=== PATIENT | male | born 1940 | race Caucasian/White ===

== ENCOUNTER 2017-03-30 12:41 | Outpatient (RCR) | payer MEDICARE, SELFPAY ==
[2017-03-30 12:55] VITALS: BP 123/79; PULSE 105; RESP 18; TEMP 36.6; O2SAT 97; BMI 33.8
--- NOTE | 2017-03-30 14:04 | ONC.PN.ESTAB ---
- Date of Service Date of Service:: 03/30/17 - Chief Complaint f/u for thrombophilia mgmt. - History of Present Illness 77-year-old man had an episode of pulmonary embolism in September 2014 was treated with anticoagulation which was discontinued after 6 months. In June 2016 he had acute thrombophlebitis of the right saphenous vein and chronic venous changes in the right greater saphenous vein with no evidence of DVT. In July 2016 patient was found to have bilateral pulmonary embolism, started on Eliquis. 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 He remains on Eliquis, comes in for follow-up. He feels well, denies bleeding from gums or skin and any new thrombotic episodes. - Past Medical/Social History Past Medical History Past Medical History: Diabetes mellitus,Hyperlipidemia,Hypertension Past Surgical History Surgical: Tonsillectomy Family History Paternal Past Medical History: Stroke Maternal History of Cancer: Uterine cancer Social History Smoking Status Current some day smoker Review of Systems Constitutional:: Denies: Fever, Sweats, Weight loss, Appetite change, Chills Cardiovascular:: Denies: Chest pain, Palpitations, Dyspnea on exertion, Orthopnea, PND, Shortness of breath Respiratory: Denies: Cough, Hemoptysis, Shortness of Breath, Wheezing Gastrointestinal:: Denies: Abdominal pain, Nausea, Vomiting, Diarrhea, Constipation, Hematochezia Genitourinary: Denies: Dysuria, Hematuria, 15, Flank pain Musculoskeletal:: Denies: Back pain, Myalgia, Arthralgia Skin: Denies: Rash, Skin Changes, Wounds Neurological:: Denies: Headache, Dizziness, Visual changes, Tinnitus, Hearing loss Psychiatric: Denies: Anxiety, Depression, Homicidal Ideations, Suicidal Ideations Objective Vital Signs Height 1.85 m Weight: 116.346 kg Weight in Pounds 256.0 lbs Pulse Ox 97 Temperature 97.8 F Pulse Rate 105 Respiratory Rate 18 Blood Pressure 123/79 Blood Pressure Position Sitting - Physical Exam General: Alert, Oriented x3, No apparent distress HEENT: Atraumatic, PERRLA, EOMI, Normocephalic Oropharynx:: Dry mucosa Neck:: Supple, Trachea midline. Negative for: JVD, bilateral Cardiac:: Regular rate, Regular rhythm, Normal S1, Normal S2. Negative for: Murmur Lungs: Clear to auscultation, Excusion symmetrical. Negative for: Rhonchi, Wheezes Assessment and Plan Thrombophilia, MTHFR mutation on Eliquis. Discussed lifelong anticoagulation therapy. Plan is to continue lifelong anticoagulation with Eliquis for now. Patient is wants to follow-up with Dr. Samaniego and be referred when new problems arise. RTC prn. Primary Care Provider: Lorne Samaniego Referring Provider: (1) Homozygous MTHFR mutation [id number] Status: Chronic
== END 2017-04-04 16:42 | disposition home or self-care (01) ==
LOC: OMD 12:41
PROVIDERS: Family Provider Family Medicine Geriatric Medicine; PCP Family Medicine Geriatric Medicine; Visit Provider Internal Medicine Medical Oncology
DX: D68.59 Other primary thrombophilia (principal); Z86.711 Personal history of pulmonary embolism; Z79.01 Long term (current) use of anticoagulants; E72.12 Methylenetetrahydrofolate reductase deficiency

== ENCOUNTER → 2017-09-07 09:11 | Outpatient (CLI) | payer MEDICARE, SELFPAY ==
[2017-09-07 13:38] LABS: Absolute Lymphocyte Count 1.33 X10^3/ul (0.83-4.51); Absolute Neutrophil Count 2.6 X10^3/uL (2.0-7.7); Basophil# 0.02 X10^3/uL; Basophil% 0.4 % (0-1); Eosinophil# 0.15 X10^3/uL; Eosinophils% 3.4 % (0-5); Hematocrit 42.8 % (40-54); Hemoglobin 14.2 g/dl (13.0-16.5); Lymphocyte # 1.33 X10^3/ul (4.0); Lymphocyte % 29.8 % (19-41); Mean Corp Hgb Conc 33.2 g/gl (32-36); Mean Corpuscular Volume 99.5 fL (80-94); Mean Platelet Vol. 11.6 fl (6.2-12.0); Monocyte# 0.38 X10^3/uL; Monocyte% 8.5 % (0-10); Neutrophil # 2.58 X10^3/uL (2.7-7.7); Neutrophil % 57.7 % (47-70); Platelet Count 143 K/mm3 (150-450); RBC Distribution Width CV 14.7 % (11.6-14.6); RBC Distribution Width SD 53.2 fl (35.1-43.9); White Blood Count 4.5 K/mm3 (4.4-11.0)
[2017-09-07 13:42] LABS: POSITIVE COUNT NO; POSITIVE DIFFERENTIAL NO; POSITIVE MORPHOLOGY NO
[2017-09-07 14:03] LABS: AST(SGOT) 32 U/L (15-37); Alanine Aminotransfer ALT/SGPT 51 U/L (16-61); Albumin, Serum 3.5 g/dL (3.2-5.0); Alkaline Phosphatase 58 U/L (45-117); Anion Gap 8 (5-15); BUN 16 mg/dL (7-18); BUN/Creat Ratio 14.2 RATIO (10-20); Chloride 103 mmol/L (98-107); Creatinine, Serum 1.13 mg/dL (0.70-1.30); EST Glomerular Filtration Rate 67 mL/min (>60); Est Glom Filt Rate - Afr Amer 81 mL/min (>60); Globulin 3.5 g/dL (2.2-4.2); Glucose 239 mg/dL (74-106); Potassium 4.4 mmol/L (3.5-5.1); Sodium Level 137 mmol/L (136-145); Thyroid Stim Hormone (TSH) 2.54 uIU/mL (0.358-3.74); Uric Acid 4.8 mg/dL (3.5-7.2)
[2017-09-08 08:46] LABS: Vitamin D,25 Hydroxy 16.4 ng/mL (29.95-100.01)
== END ==
PROVIDERS: Family Provider Family Medicine Geriatric Medicine; PCP Family Medicine Geriatric Medicine; Visit Provider Family Medicine Geriatric Medicine
DX: E11.9 Type 2 diabetes mellitus without complications (principal); I10 Essential (primary) hypertension; E55.9 Vitamin D deficiency, unspecified; M10.9 Gout, unspecified
CPT/HCPCS: 36415; 80053; 82306; 84443; 84550; 85025

== ENCOUNTER → 2018-02-27 13:39 | Outpatient (CLI) | payer MEDICARE, SELFPAY ==
[2018-02-27 15:34] LABS: Absolute Lymphocyte Count 1.68 X10^3/ul (0.83-4.51); Absolute Neutrophil Count 4.6 X10^3/uL (2.0-7.7); Basophil# 0.01 X10^3/uL; Basophil% 0.1 % (0-1); Eosinophil# 0.11 X10^3/uL; Eosinophils% 1.6 % (0-5); Hematocrit 44.1 % (40-54); Hemoglobin 14.7 g/dl (13.0-16.5); Lymphocyte # 1.68 X10^3/ul (4.0); Mean Corp Hgb Conc 33.3 g/gl (32-36); Mean Corpuscular Volume 98.9 fL (80-94); Mean Platelet Vol. 11.7 fl (6.2-12.0); Monocyte# 0.62 X10^3/uL; Monocyte% 8.9 % (0-10); Neutrophil # 4.56 X10^3/uL (2.7-7.7); Neutrophil % 65.3 % (47-70); Platelet Count 162 K/mm3 (150-450); RBC Distribution Width CV 13.4 % (11.6-14.6); RBC Distribution Width SD 47.9 fl (35.1-43.9); Red Blood Count 4.46 M/mm3 (4.6-6.2)
[2018-02-27 15:41] LABS: POSITIVE COUNT NO; POSITIVE DIFFERENTIAL NO; POSITIVE MORPHOLOGY NO
[2018-02-27 16:07] LABS: ALB/GLOB Ratio 0.9 RATIO (0.9-2.4); AST(SGOT) 23 U/L (15-37); Alanine Aminotransfer ALT/SGPT 33 U/L (16-61); Albumin, Serum 3.5 g/dL (3.2-5.0); Alkaline Phosphatase 72 U/L (45-117); Anion Gap 12 (5-15); BUN 14 mg/dL (7-18); BUN/Creat Ratio 12.2 RATIO (10-20); Calcium,Total 9.4 mg/dL (8.5-10.1); Chloride 104 mmol/L (98-107); Creatinine, Serum 1.15 mg/dL (0.70-1.30); EST Glomerular Filtration Rate 66 mL/min (>60); Est Glom Filt Rate - Afr Amer 80 mL/min (>60); Globulin 4.1 g/dL (2.2-4.2); Glucose 198 mg/dL (74-106); Potassium 4.7 mmol/L (3.5-5.1); Protein, Total 7.6 g/dL (6.4-8.2); Sodium Level 141 mmol/L (136-145); Thyroid Stim Hormone (TSH) 2.79 uIU/mL (0.358-3.74); Uric Acid 2.9 mg/dL (3.5-7.2)
[2018-02-28 09:00] LABS: Vitamin D,25 Hydroxy 20.3 ng/mL (29.95-100.01)
== END ==
PROVIDERS: Family Provider Family Medicine Geriatric Medicine; PCP Family Medicine Geriatric Medicine; Visit Provider Family Medicine Geriatric Medicine
DX: E11.9 Type 2 diabetes mellitus without complications (principal); E55.9 Vitamin D deficiency, unspecified; I10 Essential (primary) hypertension; M10.9 Gout, unspecified
CPT/HCPCS: 36415; 80053; 82306; 84443; 84550; 85025

== ENCOUNTER → 2018-05-28 13:31 | Outpatient (CLI) | payer MEDICARE, SELFPAY ==
[2018-05-28 17:28] LABS: Absolute Lymphocyte Count 1.63 X10^3/ul (0.83-4.51); Absolute Neutrophil Count 2.9 X10^3/uL (2.0-7.7); Basophil# 0.01 X10^3/uL; Basophil% 0.2 % (0-1); Eosinophil# 0.16 X10^3/uL; Hematocrit 45.6 % (40-54); Hemoglobin 14.6 g/dl (13.0-16.5); Lymphocyte # 1.63 X10^3/ul (4.0); Mean Corpuscular Hgb 32.2 pg (27.0-32.0); Mean Corpuscular Volume 100.4 fL (80-94); Mean Platelet Vol. 11.6 fl (6.2-12.0); Monocyte% 9.5 % (0-10); Neutrophil # 2.93 X10^3/uL (2.7-7.7); Neutrophil % 55.9 % (47-70); Platelet Count 137 K/mm3 (150-450); RBC Distribution Width CV 12.8 % (11.6-14.6); RBC Distribution Width SD 46.9 fl (35.1-43.9); Red Blood Count 4.54 M/mm3 (4.6-6.2); White Blood Count 5.3 K/mm3 (4.4-11.0)
[2018-05-28 17:36] LABS: ALB/GLOB Ratio 0.9 RATIO (0.9-2.4); AST(SGOT) 14 U/L (15-37); Alanine Aminotransfer ALT/SGPT 27 U/L (16-61); Albumin, Serum 3.5 g/dL (3.2-5.0); Alkaline Phosphatase 65 U/L (45-117); Anion Gap 5 (5-15); BUN 10 mg/dL (7-18); BUN/Creat Ratio 10.5 RATIO (10-20); Calcium,Total 9.1 mg/dL (8.5-10.1); Chloride 105 mmol/L (98-107); Creatinine, Serum 0.95 mg/dL (0.70-1.30); EST Glomerular Filtration Rate 82 mL/min (>60); Est Glom Filt Rate - Afr Amer 99 mL/min (>60); Globulin 3.7 g/dL (2.2-4.2); Glucose 132 mg/dL (74-106); Potassium 4.1 mmol/L (3.5-5.1); Protein, Total 7.2 g/dL (6.4-8.2); Sodium Level 140 mmol/L (136-145); Thyroid Stim Hormone (TSH) 3.56 uIU/mL (0.358-3.74); Uric Acid 2.7 mg/dL (3.5-7.2)
[2018-05-28 17:44] LABS: Vitamin D,25 Hydroxy 20.6 ng/mL (29.95-100.01)
[2018-05-28 17:46] LABS: POSITIVE COUNT NO; POSITIVE DIFFERENTIAL NO; POSITIVE MORPHOLOGY NO
== END ==
PROVIDERS: Family Provider Family Medicine Geriatric Medicine; PCP Family Medicine Geriatric Medicine; Visit Provider Family Medicine Geriatric Medicine
DX: E11.9 Type 2 diabetes mellitus without complications (principal); I10 Essential (primary) hypertension; E55.9 Vitamin D deficiency, unspecified; M10.9 Gout, unspecified
CPT/HCPCS: 36415; 80053; 82306; 84443; 84550; 85025

== ENCOUNTER → 2018-08-14 15:50 | Outpatient (CLI) | payer MEDICARE, SELFPAY ==
--- NOTE | 2018-08-14 16:12 | CT_ITS ---
HISTORY: RLQ AND GROIN PAIN TECHNIQUE: Helically acquired images were obtained of the abdomen and pelvis following 100 cc Isovue-300 IV contrast. Oral contrast was administered. A radiation dose optimization technique was used for this scan. COMPARISON: CTA chest 07/27/16. FINDINGS: # of images incl. paperwork: [id number] No radiopaque gallstones. No evidence of cholecystitis or biliary obstruction. Liver, spleen unremarkable. Pancreas not inflamed. Mild atherosclerosis. No abdominal aortic aneurysm. Portal and mesenteric veins patent. Normal appendix. No obstruction or inflammation of the bowel. Incidental 2.1 cm cyst right kidney. Punctate nonobstructing stone lower pole left kidney. No hydronephrosis. No ureteral or urinary bladder stones. Prostate size within normal limits. 1.5 cm indeterminate density nodule right adrenal gland, unchanged. Left adrenal gland unremarkable. No acute osseous abnormality. Prominent degenerative changes lumbar spine. Lung bases with no acute or concerning findings. CT/Abdomen/Pelvis WITH Contrast IMPRESSION: No acute findings. Normal appendix. Punctate nonobstructing left renal stone. Unchanged 1.5 cm diameter indeterminate density right adrenal nodule. Individualized dose optimization techniques were used for this CT. at 1925 Reported and signed by: Aron Gomes MD Electronically Signed: Aron Gomes, at 19:24 EST Tel , Service support ,
[2018-08-14 16:25] LABS: Absolute Lymphocyte Count 1.85 X10^3/ul (0.83-4.51); Absolute Neutrophil Count 3.6 X10^3/uL (2.0-7.7); Basophil# 0.02 X10^3/uL; Basophil% 0.3 % (0-1); Eosinophil# 0.14 X10^3/uL; Eosinophils% 2.3 % (0-5); Hematocrit 48.1 % (40-54); Hemoglobin 15.6 g/dl (13.0-16.5); Lymphocyte # 1.85 X10^3/ul (4.0); Lymphocyte % 30.1 % (19-41); Mean Corp Hgb Conc 32.4 g/gl (32-36); Mean Corpuscular Hgb 32.8 pg (27.0-32.0); Mean Corpuscular Volume 101.3 fL (80-94); Mean Platelet Vol. 11.2 fl (6.2-12.0); Monocyte# 0.47 X10^3/uL; Monocyte% 7.7 % (0-10); Neutrophil # 3.64 X10^3/uL (2.7-7.7); Neutrophil % 59.3 % (47-70); Platelet Count 166 K/mm3 (150-450); RBC Distribution Width CV 14.6 % (11.6-14.6); RBC Distribution Width SD 53.9 fl (35.1-43.9); Red Blood Count 4.75 M/mm3 (4.6-6.2); White Blood Count 6.1 K/mm3 (4.4-11.0)
[2018-08-14 16:27] LABS: AST(SGOT) 20 U/L (15-37); Alanine Aminotransfer ALT/SGPT 31 U/L (16-61); Albumin, Serum 3.9 g/dL (3.2-5.0); Alkaline Phosphatase 67 U/L (45-117); Anion Gap 6 (5-15); BUN 14 mg/dL (7-18); BUN/Creat Ratio 13.3 RATIO (10-20); Calcium,Total 9.1 mg/dL (8.5-10.1); Chloride 109 mmol/L (98-107); Creatinine, Serum 1.05 mg/dL (0.70-1.30); EST Glomerular Filtration Rate 73 mL/min (>60); Est Glom Filt Rate - Afr Amer 88 mL/min (>60); Globulin 3.9 g/dL (2.2-4.2); Glucose 111 mg/dL (74-106); Protein, Total 7.8 g/dL (6.4-8.2); Sodium Level 141 mmol/L (136-145)
[2018-08-14 16:28] LABS: POSITIVE COUNT NO; POSITIVE DIFFERENTIAL NO; POSITIVE MORPHOLOGY NO
== END ==
PROVIDERS: Family Provider Family Medicine Geriatric Medicine; PCP Family Medicine Geriatric Medicine; Referring Provider Family Medicine Geriatric Medicine; Visit Provider Family Medicine Geriatric Medicine
DX: R10.9 Unspecified abdominal pain (principal)
CPT/HCPCS: 36415; 74177; 80053; 85025; Q9967

== ENCOUNTER → 2018-09-10 14:29 | Outpatient (CLI) | payer MEDICARE, SELFPAY ==
[2018-09-10 16:24] LABS: Absolute Lymphocyte Count 2.16 X10^3/ul (0.83-4.51); Absolute Neutrophil Count 4.5 X10^3/uL (2.0-7.7); Basophil# 0.03 X10^3/uL; Basophil% 0.4 % (0-1); Eosinophil# 0.12 X10^3/uL; Eosinophils% 1.6 % (0-5); Hematocrit 50.5 % (40-54); Hemoglobin 16.3 g/dl (13.0-16.5); Lymphocyte # 2.16 X10^3/ul (4.0); Lymphocyte % 29.5 % (19-41); Mean Corp Hgb Conc 32.3 g/gl (32-36); Mean Corpuscular Hgb 32.7 pg (27.0-32.0); Mean Corpuscular Volume 101.4 fL (80-94); Mean Platelet Vol. 11.7 fl (6.2-12.0); Monocyte# 0.52 X10^3/uL; Monocyte% 7.1 % (0-10); Neutrophil # 4.46 X10^3/uL (2.7-7.7); Platelet Count 148 K/mm3 (150-450); RBC Distribution Width CV 13.8 % (11.6-14.6); RBC Distribution Width SD 50.8 fl (35.1-43.9); Red Blood Count 4.98 M/mm3 (4.6-6.2); White Blood Count 7.3 K/mm3 (4.4-11.0)
[2018-09-10 16:25] LABS: POSITIVE COUNT NO; POSITIVE DIFFERENTIAL NO; POSITIVE MORPHOLOGY NO
[2018-09-10 16:41] LABS: Vitamin D,25 Hydroxy 16.2 ng/mL (29.95-100.01)
[2018-09-10 16:59] LABS: AST(SGOT) 19 U/L (15-37); Alanine Aminotransfer ALT/SGPT 33 U/L (16-61); Albumin, Serum 3.9 g/dL (3.2-5.0); Alkaline Phosphatase 65 U/L (45-117); Anion Gap 13 (5-15); BUN 15 mg/dL (7-18); BUN/Creat Ratio 15.5 RATIO (10-20); Calcium,Total 9.5 mg/dL (8.5-10.1); Chloride 107 mmol/L (98-107); Creatinine, Serum 0.97 mg/dL (0.70-1.30); EST Glomerular Filtration Rate 80 mL/min (>60); Est Glom Filt Rate - Afr Amer 97 mL/min (>60); Globulin 3.9 g/dL (2.2-4.2); Glucose 88 mg/dL (74-106); Potassium 4.5 mmol/L (3.5-5.1); Protein, Total 7.8 g/dL (6.4-8.2); Sodium Level 140 mmol/L (136-145); Thyroid Stim Hormone (TSH) 1.87 uIU/mL (0.358-3.74); Uric Acid 2.4 mg/dL (3.5-7.2)
== END ==
PROVIDERS: Family Provider Family Medicine Geriatric Medicine; PCP Family Medicine Geriatric Medicine; Visit Provider Family Medicine Geriatric Medicine
DX: E11.9 Type 2 diabetes mellitus without complications (principal); I10 Essential (primary) hypertension; E55.9 Vitamin D deficiency, unspecified; M10.9 Gout, unspecified
CPT/HCPCS: 36415; 80053; 82306; 84443; 84550; 85025

== ENCOUNTER → 2019-03-14 13:34 | Outpatient (CLI) | payer OTHER, SELFPAY ==
[2019-03-14 18:23] LABS: Absolute Lymphocyte Count 1.55 X10^3/uL (0.83-4.51); Basophil# 0.04 X10^3/uL; Basophil% 0.8 % (0-1); Eosinophil# 0.07 X10^3/uL; Eosinophils% 1.4 % (0-5); Hematocrit 46.7 % (40-54); Hemoglobin 14.8 g/dL (13.0-16.5); Lymphocyte # 1.55 X10^3/ul (4.0); Lymphocyte % 30.3 % (19-41); Mean Corp Hgb Conc 31.7 g/dL (32-36); Mean Corpuscular Hgb 32.3 pg (27.0-32.0); Mean Platelet Vol. 11.4 fl (6.2-12.0); Monocyte# 0.41 X10^3/uL; NRBC Flagged by Analyzer 0 % (0-5); Neutrophil # 3.03 X10^3/uL (2.7-7.7); Neutrophil % 59.1 % (47-70); Platelet Count 127 K/mm3 (150-450); RBC Distribution Width CV 13.8 % (11.6-14.6); Red Blood Count 4.58 M/mm3 (4.6-6.2); White Blood Count 5.1 K/mm3 (4.4-11.0)
[2019-03-14 18:38] LABS: Vitamin D,25 Hydroxy 20.6 ng/mL (29.95-100.01)
[2019-03-14 18:42] LABS: AST(SGOT) 15 U/L (15-37); Alanine Aminotransfer ALT/SGPT 23 U/L (16-61); Albumin, Serum 3.5 g/dL (3.2-5.0); Alkaline Phosphatase 63 U/L (45-117); Anion Gap 7 (5-15); BUN 16 mg/dL (7-18); BUN/Creat Ratio 15.8 RATIO (10-20); Calcium,Total 9.2 mg/dL (8.5-10.1); Chloride 107 mmol/L (98-107); Creatinine, Serum 1.01 mg/dL (0.70-1.30); EST Glomerular Filtration Rate 76 mL/min (>60); Est Glom Filt Rate - Afr Amer 92 mL/min (>60); Globulin 3.6 g/dL (2.2-4.2); Glucose 126 mg/dL (74-106); Potassium 4.3 mmol/L (3.5-5.1); Protein, Total 7.1 g/dL (6.4-8.2); Sodium Level 142 mmol/L (136-145); Thyroid Stim Hormone (TSH) 1.62 uIU/mL (0.358-3.74)
== END ==
PROVIDERS: Family Provider Family Medicine Geriatric Medicine; PCP Family Medicine Geriatric Medicine; Visit Provider Family Medicine Geriatric Medicine
DX: I10 Essential (primary) hypertension (principal); E11.9 Type 2 diabetes mellitus without complications; E55.9 Vitamin D deficiency, unspecified; M10.9 Gout, unspecified
CPT/HCPCS: 36415; 80053; 82306; 84443; 84550; 85025

== ENCOUNTER → 2019-09-12 13:52 | Outpatient (CLI) | payer OTHER, SELFPAY ==
[2019-09-12 16:08] LABS: Absolute Lymphocyte Count 1.59 X10^3/uL (0.83-4.51); Absolute Neutrophil Count 3.6 X10^3/uL (2.0-7.7); Basophil# 0.03 X10^3/uL; Basophil% 0.5 % (0-1); Eosinophils% 1.7 % (0-5); Hematocrit 49.1 % (40-54); Hemoglobin 15.9 g/dL (13.0-16.5); Lymphocyte # 1.59 X10^3/ul (4.0); Lymphocyte % 27.3 % (19-41); Mean Corp Hgb Conc 32.4 g/dL (32-36); Mean Corpuscular Hgb 31.9 pg (27.0-32.0); Mean Corpuscular Volume 98.6 fL (80-94); Mean Platelet Vol. 11.8 fl (6.2-12.0); Monocyte# 0.53 X10^3/uL; Monocyte% 9.1 % (0-10); NRBC Flagged by Analyzer 0 % (0-5); Neutrophil # 3.56 X10^3/uL (2.7-7.7); Neutrophil % 61.1 % (47-70); Platelet Count 141 K/mm3 (150-450); RBC Distribution Width CV 13.4 % (11.6-14.6); Red Blood Count 4.98 M/mm3 (4.6-6.2); White Blood Count 5.8 K/mm3 (4.4-11.0)
[2019-09-12 16:30] LABS: ALB/GLOB Ratio 0.9 RATIO (0.9-2.4); AST(SGOT) 16 U/L (15-37); Alanine Aminotransfer ALT/SGPT 32 U/L (16-61); Albumin, Serum 3.7 g/dL (3.2-5.0); Alkaline Phosphatase 63 U/L (45-117); Anion Gap 7 (5-15); BUN 19 mg/dL (7-18); BUN/Creat Ratio 17.9 RATIO (10-20); Calcium,Total 9.6 mg/dL (8.5-10.1); Chloride 107 mmol/L (98-107); Creatinine, Serum 1.06 mg/dL (0.70-1.30); EST Glomerular Filtration Rate 72 mL/min (>60); Est Glom Filt Rate - Afr Amer 87 mL/min (>60); Globulin 3.9 g/dL (2.2-4.2); Glucose 132 mg/dL (74-106); Potassium 4.6 mmol/L (3.5-5.1); Protein, Total 7.6 g/dL (6.4-8.2); Sodium Level 139 mmol/L (136-145); Thyroid Stim Hormone (TSH) 2.26 uIU/mL (0.358-3.74); Uric Acid 3.3 mg/dL (3.5-7.2)
[2019-09-12 16:36] LABS: Vitamin D,25 Hydroxy 27.2 ng/mL
== END ==
PROVIDERS: PCP Family Medicine Geriatric Medicine; Visit Provider Family Medicine Geriatric Medicine
DX: E11.9 Type 2 diabetes mellitus without complications (principal); E55.9 Vitamin D deficiency, unspecified; I10 Essential (primary) hypertension; M10.9 Gout, unspecified
CPT/HCPCS: 36415; 80053; 82306; 84443; 84550; 85025

== ENCOUNTER → 2020-03-12 13:46 | Outpatient (CLI) | payer OTHER, SELFPAY ==
[2020-03-12 16:38] LABS: Absolute Lymphocyte Count 1.39 X10^3/uL (0.83-4.51); Basophil# 0.02 X10^3/uL; Basophil% 0.4 % (0-1); Hematocrit 45.6 % (40-54); Hemoglobin 14.6 g/dL (13.0-16.5); Lymphocyte # 1.39 X10^3/ul (4.0); Lymphocyte % 28.1 % (19-41); Mean Corpuscular Hgb 32.7 pg (27.0-32.0); Mean Platelet Vol. 11.4 fl (6.2-12.0); Monocyte# 0.46 X10^3/uL; Monocyte% 9.3 % (0-10); NRBC Flagged by Analyzer 0 % (0-5); Neutrophil # 2.96 X10^3/uL (2.7-7.7); Neutrophil % 59.8 % (47-70); Platelet Count 146 K/mm3 (150-450); RBC Distribution Width CV 13.7 % (11.6-14.6); RBC Distribution Width SD 52.1 fl (35.1-43.9); Red Blood Count 4.47 M/mm3 (4.6-6.2)
[2020-03-12 17:00] LABS: Vitamin D,25 Hydroxy 31.9 ng/mL
[2020-03-12 17:11] LABS: AST(SGOT) 17 U/L (15-37); Alanine Aminotransfer ALT/SGPT 28 U/L (16-61); Albumin, Serum 3.7 g/dL (3.2-5.0); Alkaline Phosphatase 58 U/L (45-117); Anion Gap 5 (5-15); BUN 16 mg/dL (7-18); BUN/Creat Ratio 13.6 RATIO (10-20); Calcium,Total 8.9 mg/dL (8.5-10.1); Chloride 108 mmol/L (98-107); Creatinine, Serum 1.18 mg/dL (0.70-1.30); EST Glomerular Filtration Rate 64 mL/min (>60); Est Glom Filt Rate - Afr Amer 77 mL/min (>60); Globulin 3.6 g/dL (2.2-4.2); Glucose 196 mg/dL (74-106); Potassium 4.3 mmol/L (3.5-5.1); Protein, Total 7.3 g/dL (6.4-8.2); Sodium Level 139 mmol/L (136-145); Thyroid Stim Hormone (TSH) 1.83 uIU/mL (0.358-3.74); Uric Acid 2.7 mg/dL (3.5-7.2)
== END ==
PROVIDERS: PCP Family Medicine Geriatric Medicine; Visit Provider Family Medicine Geriatric Medicine
DX: I10 Essential (primary) hypertension (principal); E55.9 Vitamin D deficiency, unspecified; M10.9 Gout, unspecified; E11.9 Type 2 diabetes mellitus without complications
CPT/HCPCS: 36415; 80053; 82306; 84443; 84550; 85025

== ENCOUNTER 2020-03-30 14:30 | Outpatient (RCR) | payer MEDICARE, SELFPAY ==
--- NOTE | 2020-03-25 09:18 | HP.OTEVAL ---
Patient's Visit Information KELLEY CAMILO is a 79 year old M, referred to Occupational Therapy by Dr. Lorne Samaniego MD, with a diagnosis of lymphedema. Date of Evaluation: 03/23/20 Occupational Therapist: Shama Rand, FREIDA/Claudia, CHT - Subjective This 79 year old male was seen for OT eval with dx of BLE lymphedema. pt states he has compression socks but has not worn them because the heat and they make his legs itchy. pt states he has had swelling in bilateral LE worse in right than the left. pt is unsure what compression class his socks are. states he did have issue where his right leg was seeping, but this quit. Pt would like to know what he needs to do to make it go away. - Lymphedema (Circumferential Measure) Mid-foot: right 27cm left 26cm Ankle: right 37cm left 32cm Lower calf: right 39cm left 28cm Largest calf: right 42.5cm left 41cm Below knee: right 39cm left 37cm Lower Exremity Comments: pt demo with edema in toes- - Lower Limb Functional Index Lower Extremity Functional Score: 68 - Goals Demonstrate a 20% reduction in edema by d/c: Yes Demonstrate adequate knowledge of self-massage by 2nd week: Yes Demonstrate adequate knowledge skin care/prec by 2nd week: Yes Select approp compression garment w/donning/care/wear by d/c: Yes Voice need to replace compression garment every 4-6mo by dc: Yes - Rehabilitation General Assessment: pt demo with BLE stage II lymphedema and would benefit from skilled OT services 2-3 visits to increase pts knowledge and mtg of lymphedema. Today therapist ed. pt on need of compression socks/garment- right LE 30-40mmHg, left LE 20-30mmHg, lymph system, lymph ex and skin care and precautions. pt demo understanding and agree to POC Rehabilitation Potential: Questionable - Anticipated Interventions Education re Diagnosis, Manual Lymph Drainage, Education re Life-long lymphedema Management, Education re Skin Care and Precautions, Education re Self Massage Techniques, Education re Correct Donning Tech,Care&Wearing Sched Comp Garments, Home Program - Visit Plan Frequency: 1-2x /Week Duration: 2 Weeks TEXT: Thank you for the opportunity to evaluate your patient. For Medicare and Medicare HMO plans, please review the plan of care and approve it. It will need to be FAXED BACK to us at [phone] for Medicare purposes. Please let me know if there are questions or concerns regarding this plan of care. Physician Signature: Date:
--- NOTE | 2020-03-30 14:56 | HP.OTDCSUM ---
It has been my pleasure to treat KELLEY CAMILO under orders from Dr. Lorne Samaniego MD, for the diagnosis of lymphedema for a total of 2 visit(s). Please see the following information for a summary of their discharge status. % Improvement: 80 Objective/Function: pt demo with a 4cm reduction in LE edema Patient Goals: Learn how to Manage Lymphedema, Learn how to Apply Compression Stockings Demonstrate a 20% reduction in edema by d/c: Yes Demonstrate adequate knowledge of self-massage by 2nd week: Yes Demonstrate adequate knowledge skin care/prec by 2nd week: Yes Select approp compression garment w/donning/care/wear by d/c: Yes Voice need to replace compression garment every 4-6mo by dc: Yes Discharge Comments: Pt was seen for 2 visits and arrived to session with a reduction of 4cm! pt arrived with compression socks on and feels he can tolerate them fine. pt demo understanding of compression socks, skin care and beneficial exercises. pt has met goals in OT and is d/c with HEP at this time. If there are questions or concerns regarding this patient's occupational therapy, please fell free to call me at [phone]. Thank you for the referral of this patient. Sincerely, Shama Rand, OTR/L, CHT
== END 2020-03-30 19:00 | disposition home or self-care (01) ==
LOC: OT 14:30
PROVIDERS: PCP Family Medicine Geriatric Medicine; Referring Provider Family Medicine Geriatric Medicine; Visit Provider Family Medicine Geriatric Medicine
DX: I89.0 Lymphedema, not elsewhere classified (principal)
CPT/HCPCS: 97166; 97530

== ENCOUNTER → 2020-09-14 13:02 | Outpatient (CLI) | payer MEDICARE, SELFPAY ==
[2020-09-14 15:23] LABS: Absolute Lymphocyte Count 1.57 X10^3/uL (0.83-4.51); Absolute Neutrophil Count 2.7 X10^3/uL (2.0-7.7); Basophil# 0.03 X10^3/uL; Basophil% 0.6 % (0-1); Eosinophil# 0.13 X10^3/uL; Eosinophils% 2.6 % (0-5); Hematocrit 43.6 % (40-54); Hemoglobin 14.3 g/dL (13.0-16.5); Lymphocyte # 1.57 X10^3/ul (4.0); Lymphocyte % 31.8 % (19-41); Mean Corp Hgb Conc 32.8 g/dL (32-36); Mean Corpuscular Hgb 32.2 pg (27.0-32.0); Mean Corpuscular Volume 98.2 fL (80-94); Mean Platelet Vol. 11.9 fl (6.2-12.0); Monocyte# 0.45 X10^3/uL; Monocyte% 9.1 % (0-10); NRBC Flagged by Analyzer 0 % (0-5); Neutrophil # 2.74 X10^3/uL (2.7-7.7); Neutrophil % 55.5 % (47-70); Platelet Count 151 K/mm3 (150-450); RBC Distribution Width SD 46.5 fl (35.1-43.9); Red Blood Count 4.44 M/mm3 (4.6-6.2); White Blood Count 4.9 K/mm3 (4.4-11.0)
[2020-09-14 15:37] LABS: Vitamin D,25 Hydroxy 27.5 ng/mL
[2020-09-14 15:44] LABS: AST(SGOT) 17 U/L (15-37); Alanine Aminotransfer ALT/SGPT 32 U/L (16-61); Albumin, Serum 3.5 g/dL (3.2-5.0); Alkaline Phosphatase 74 U/L (45-117); Anion Gap 7 (5-15); BUN 12 mg/dL (7-18); BUN/Creat Ratio 9.6 RATIO (10-20); Chloride 101 mmol/L (98-107); Creatinine, Serum 1.25 mg/dL (0.70-1.30); EST Glomerular Filtration Rate 59 mL/min (>60); Est Glom Filt Rate - Afr Amer 72 mL/min (>60); Globulin 3.5 g/dL (2.2-4.2); Glucose 415 mg/dL (74-106); Potassium 4.4 mmol/L (3.5-5.1); Sodium Level 135 mmol/L (136-145); Thyroid Stim Hormone (TSH) 2.04 uIU/mL (0.358-3.74); Uric Acid 2.4 mg/dL (3.5-7.2)
== END ==
PROVIDERS: PCP Family Medicine Geriatric Medicine; Visit Provider Family Medicine Geriatric Medicine
DX: I10 Essential (primary) hypertension (principal); E11.9 Type 2 diabetes mellitus without complications; E55.9 Vitamin D deficiency, unspecified; M10.9 Gout, unspecified
CPT/HCPCS: 36415; 80053; 82306; 84443; 84550; 85025

== ENCOUNTER → 2020-12-21 14:31 | Outpatient (CLI) | payer MEDICARE, SELFPAY ==
[2020-12-21 16:59] LABS: Absolute Lymphocyte Count 1.95 X10^3/uL (0.83-4.51); Absolute Neutrophil Count 3.2 X10^3/uL (2.0-7.7); Basophil# 0.03 X10^3/uL; Basophil% 0.5 % (0-1); Eosinophil# 0.08 X10^3/uL; Eosinophils% 1.4 % (0-5); Hematocrit 44.7 % (40-54); Lymphocyte # 1.95 X10^3/ul (0.83-4.51); Lymphocyte % 33.5 % (19-41); Mean Corp Hgb Conc 33.6 g/dL (32-36); Mean Corpuscular Hgb 31.8 pg (27.0-32.0); Mean Corpuscular Volume 94.9 fL (80-94); Mean Platelet Vol. 11.6 fl (6.2-12.0); Monocyte# 0.56 X10^3/uL; Monocyte% 9.6 % (0-10); NRBC Flagged by Analyzer 0 % (0-5); Neutrophil # 3.17 X10^3/uL (2.7-7.7); Neutrophil % 54.5 % (47-70); Platelet Count 188 K/mm3 (150-450); RBC Distribution Width CV 12.6 % (11.6-14.6); RBC Distribution Width SD 44.5 fl (35.1-43.9); Red Blood Count 4.71 M/mm3 (4.6-6.2); White Blood Count 5.8 K/mm3 (4.4-11.0)
[2020-12-21 17:17] LABS: Vitamin D,25 Hydroxy 39.2 ng/mL
[2020-12-21 17:23] LABS: ALB/GLOB Ratio 0.9 RATIO (0.9-2.4); AST(SGOT) 17 U/L (15-37); Alanine Aminotransfer ALT/SGPT 28 U/L (16-61); Albumin, Serum 3.6 g/dL (3.2-5.0); Alkaline Phosphatase 73 U/L (45-117); Anion Gap 9 (5-15); BUN 21 mg/dL (7-18); BUN/Creat Ratio 17.8 RATIO (10-20); Calcium,Total 9.2 mg/dL (8.5-10.1); Chloride 98 mmol/L (98-107); Creatinine, Serum 1.18 mg/dL (0.70-1.30); EST Glomerular Filtration Rate 63 mL/min (>60); Est Glom Filt Rate - Afr Amer 77 mL/min (>60); Glucose 255 mg/dL (74-106); Protein, Total 7.6 g/dL (6.4-8.2); Sodium Level 135 mmol/L (136-145); Thyroid Stim Hormone (TSH) 2.69 uIU/mL (0.358-3.74); Uric Acid 3.8 mg/dL (3.5-7.2)
[2020-12-21 18:09] LABS: M R Staph aureus DNA By PCR Negative (Negative); Probe Check PASS; Specimen Processing Control PASS; Staph aureus DNA By PCR POSITIVE (Negative)
== END | disposition home or self-care (01) ==
PROVIDERS: PCP Family Medicine Geriatric Medicine; Visit Provider Family Medicine Geriatric Medicine
DX: I10 Essential (primary) hypertension (principal); E11.9 Type 2 diabetes mellitus without complications; E55.9 Vitamin D deficiency, unspecified; M10.9 Gout, unspecified
CPT/HCPCS: 36415; 80053; 82306; 84443; 84550; 85025; 87070; 87077; 87186; 87205; 87640

== ENCOUNTER → 2020-12-21 15:32 | Outpatient (CLI) | payer MEDICARE, SELFPAY ==
--- NOTE | 2020-12-21 15:34 | VDLE_ITS ---
Reason For Study: localized edema RIGHT LEFT GSV is normal. CFV is compressible, spontaneous, phasic, CFV is compressible, spontaneous, phasic, competent, and demonstrates normal competent and demonstrates normal augmentation. augmentation. FV is compressible, spontaneous, phasic, competent and demonstrates normal augmentation. POP V is compressible, spontaneous, phasic, competent and demonstrates normal augmentation. T/P Trunk is compressible. PTV is compressible. RT PerV is compressible. Procedure This is a venous duplex using B-mode, color flow and spectral Doppler. Exam performed in department. The exam was diagnostic. A preliminary report was called and/or faxed to Dr. Samaniego @ 4:10 pm. VL/Venous Duplex US, Unilateral Interpretation Summary Deep veins of the right lower extremity are patent and compressible segmentally . There is no evidence of right lower extremity deep vein thrombosis. Valvular competence kamala ears intact within the proximal deep venous system on the right . The right great saphenous vein a ppears patent and compressible segmentally. Ordering Physician: Lorne Samaniego Referring Physician: Lorne Samaniego Chi Performed By: Jenny Jones RVT, RDCS and Student
== END ==
PROVIDERS: PCP Family Medicine Geriatric Medicine; Referring Provider Family Medicine Geriatric Medicine; Visit Provider Family Medicine Geriatric Medicine
DX: R60.0 Localized edema (principal); B95.62 Methicillin resistant Staphylococcus aureus infection as the cause of diseases classified elsewhere; E11.9 Type 2 diabetes mellitus without complications; E55.9 Vitamin D deficiency, unspecified; I10 Essential (primary) hypertension; M10.9 Gout, unspecified
CPT/HCPCS: 36415; 80053; 82306; 84443; 84550; 85025; 87070; 87205; 87640; 93971

== ENCOUNTER 2021-01-01 07:32 | Outpatient (RCR) | payer MEDICARE, SELFPAY ==
[2021-01-01 07:52] VITALS: BP 148/81; PULSE 86; RESP 16; TEMP 36.9; BMI 32.4
--- NOTE | 2021-01-01 12:51 | PCM.WC.HP ---
History of Present Illness Date of Service: 01/01/21 Chief Complaint: right leg ulcers History of Wound: Sukumar is a pleasant 80-year-old white male who presents to the wound healing center today, 01/01/2021, for evaluation of right lower extremity ulcer. He has a past medical history significant for type 2 diabetes mellitus, right lower extremity lymphedema, hypertension, hyperlipidemia, diabetic neuropathy, and pulmonary embolism (approximately 5 years ago, r/t traveling). He is . He reports his ulcer occurred after being outside mowing his lawn. He believes he may have bumped his leg on his mower. After going inside his house and showering, he noticed a large blister had developed on his right leg. He applied pressure to the blister and it ruptured a large amount of clear fluid. His ulcer was initially evaluated by Dr. Samaniego on 12/21/2020. A culture on 12/21/2020 revealed 2+ Serratia marcescens, 2+ Aeromonas hydrophilia/cavia, 1+ staph aureus, and rare Klebsiella oxytoca. He was started on a 7-day course of doxycycline and a 7-day course of Keflex, and has completed these antibiotics. Labs from 12/21/2020 revealed an unremarkable CBCD, a CMP with a glucose 255, BUN 21, and estimated GFR 63, and A1c of 11.1%, and normal uric acid and TSH levels. He had a positive Staph aureus PCR and a negative MRSA PCR. Right lower extremity venous studies revealed valvular competence and no evidence of DVT. He has been performing daily wound care. He washes his right lower extremity ulcers daily with antibacterial soap and water and applies Neosporin and a nonadherent dressing to the ulcers. He states his right lower extremity swelling is no worse than his baseline. He uses compression to his bilateral lower extremities daily. He typically sleeps in a recliner or in bed. He does note improvement in his lower extremity swelling with laying flat in bed. He denies fever, chills, general malaise, or poor appetite. He denies any purulent or malodorous drainage from his ulcers. He denies any increased warmth or redness surrounding his ulcers. 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 Essential hypertension History of pulmonary embolism Hyperlipidemia Lymphedema of right lower extremity Home Medications apixaban [Eliquis] 5 mg PO BID 09/30/16 [History Last Taken Unknown] atorvastatin [Lipitor] 40 mg PO DAILY 09/30/16 [History Last Taken Unknown] febuxostat [Uloric] 40 mg PO DAILY 09/30/16 [History Last Taken Unknown] lisinopril 20 mg PO DAILY 09/30/16 [History Last Taken Unknown] metformin 1,000 mg PO BIDCM 09/30/16 [History Last Taken Unknown] Allergy/AdvReac Type Severity Reaction Status Date / Time house dust AdvReac Severe Unknown Unverified 09/30/16 10:55 cat dander AdvReac Other Verified 03/30/17 12:52 dog dander AdvReac Other Verified 03/30/17 12:53 Social History Smoking Status: Former smoker ROS Constitutional Constitutional: Denies chills, fever(s) or night sweats Eyes Eyes: Denies change in vision or double vision ENT HEENT: Denies lip swelling or tongue swelling Cardiovascular Cardiovascular: Denies chest pain or palpitations Respiratory/Chest Respiratory/Chest: Denies cough, shortness of breath at rest, shortness of breath with exertion or wheezing Gastrointestinal Gastrointestinal: Denies diarrhea, nausea or vomiting Genitourinary Genitourinary: Denies dysuria or hematuria Musculoskeletal Musculoskeletal: Denies abnormal gait, extremity pain or muscle weakness Integumentary Integumentary: Reports wounds; Denies rash Neurologic Neurologic: Reports numbness, sensory deficit and tingling; Denies abnormal gait, abnormal speech or focal weakness Endocrine Endocrinology: Denies cold intolerance, heat intolerance, polydipsia or polyuria Hematologic/Lymphatic Hematologic/Lymphatic: Reports other Details: hx PE ; Denies easy bleeding or easy bruising Vital Signs Vital Signs Vital Signs: 01/01/21 07:52 Temperature 98.4 F Temperature Source Temporal Pulse Rate 86 Respiratory Rate 16 Blood Pressure 148/81 H Blood Pressure Mean 103 Blood Pressure Source Monitor Blood Pressure Position Sitting Blood Pressure Location Right Arm Weight Weight: 246 lb Body Mass Index (BMI) 32.4 Physical Exam Const alert, no apparent distress and healthy appearing General Appearance: cooperative, comfortable and well kempt HEENT Head and Scalp: normocephalic and atraumatic Eyes EOMs intact bilaterally Neck supple and no JVD Lymph Lymphatic: lymphedema moderate (RLE) Resp normal respiratory effort, normal air movement and no use of accessory muscles Auscultation: clear to auscultation bilaterally; Negative for crackles, rales, rhonchi or wheezes Cardio regular rate and regular rhythm GI normal to inspection, nondistended, normoactive bowel sounds Extremity normal capillary refill, no joint enlargement and no calf tenderness General Extremity: edema right lower extremity moderate; Negative for clubbing or cyanosis Peripheral Pulses: Yes dorsalis pedis pulses present bilateral 2+ Skin Wounds: wounds noted No malodorous Wound Narrative: Ulcer cluster of right lower extremity with subcutaneous layers exposed. There is good granulation tissue present. There is no periulcer erythema, warmth, or tenderness. There is no purulent/malodorous drainage. No tunneling, undermining, or probing to bone. Neuro oriented x3, moves all extremities and no focal motor deficits Psych mental status grossly normal, cooperative and affect normal Debridement Note Debridement Note Post-Debridement Measurements and Additional Note: Post-Debridement Measurements/Treatment - Nurse 1 - General Ulcer Assessment Start: 01/01/21 07:36 Freq: Status: Active Protocol: .LOWEXT Activity Type Activity Date Activity User E-Sign Co-Sign Detail Recorded Client Recorded Date Recorded By Document 01/01/21 07:52 Desktop 01/01/21 08:12 01/01/21 07:52 - Today's Visit Information Type of service Initial Visit Arrival Mode Ambulatory Patient Identification Verified (Name & Yes ) Patient Requires Transmission-Based No Precautions Height and Weight Height 6 ft 1 in Weight 246 lb Weight in Pounds 246.0 lbs Body Mass Index (BMI) 32.4 BMI Classification Obese BSA - Jarocho 2.35 Vital Signs Temperature (97.8 F-99.1 F) 98.4 F Temperature Source Temporal Pulse Rate (60-100) 86 Pulse Location Monitor Respiratory Rate (12-18) 16 Respiratory rate source Observation Blood Pressure (90/60-120/80) 148/81 H Blood Pressure Mean 103 Source Monitor Position Sitting Blood Pressure Location Right Arm History Since Last Visit- (Skip if this is Patient's initial visit) Left Footwear Regular Shoe Right Footwear Regular Shoe Pain Scale: 0-10 Numeric Is Patient Pain Free? Yes Lower Extremity Assessment/ Foot Assessment/ Toe Nail Assessment Right -Posterior Tibial Palpable Yes -Dorsalis Pedis Palpable Yes -Extremity Color Hyperpigmented, Hemosiderin -Hair Growth on Legs Yes -Hair Growth on Toes No -Temperature of Extremity Warm -Capillary Refill Less than 3 Seconds -Dependent Rubor Yes -Blanched when Elevated No -Other Deformity No -Prior Foot Ulcer No -Charcot Joint No -Prior Amputation No -Thick Yes -Discolored No -Deformed No -Improper Length & Hygeine No Left -Posterior Tibial Palpable Yes -Dorsalis Pedis Palpable Yes -Extremity Color Hyperpigmented -Hair Growth on Legs Yes -Hair Growth on Toes No -Temperature of Extremity Warm -Capillary Refill Less than 3 Seconds -Dependent Rubor Yes -Blanched when Elevated No -Lipodermatosclerosis No -Foot Assessment Not Applicable -Other Deformity No -Prior Foot Ulcer No -Charcot Joint No -Prior Amputation No -Thick Yes -Discolored Yes -Deformed No -Improper Length & Hygeine No Neuropathy Assessment Feet - Top Side and Bottom <Entered> (a) Communication Assessment Primary Language E[place]an Preferred language [place] Deputy County Clerk Required No Able to Read Yes Able to Write Yes Communication Tools None Right Hearing Abillity Normal Left Hearing Abillity Normal Visual Assistive Devices Glasses Teaching Assessment Preferences Verbal,Written Barriers to Learning None Readiness To Learn Excellent Willingness to Engage in Self Management High Activies Readiness to Engage in Self Management High Activities Anxiety Level Calm Cooperation Cooperative Perception Coherent Interest in Health Problem Asks Questions Education Importance Acknowledges Need Does Patient Smoke tobacco or other No substances Smoking Status Former smoker Is Patient Diabetic Yes Functional Assessment Recent Decline in Ability to Perform Denies Any Declines Culture/Buddhist/[employer] Cultural/Buddhist Needs that may affect No Treatment Plan Would you allow our hospital meter shop superintendent to No meet you for the purpose of spiritual/ emotional support? [employer] to contact place of latter-day No Teaching: Wound Center [facility] Orientation/ Contacting Physician -Person Taught Patient -Teaching Method Discussion, Demonstration -Response to teaching Return demonstration, Verbalize understanding (a) 1 - positive 2 - positive 3 - negative 4 - positive 5 - positive - Nurse 1 - General Ulcer Measurement Start: 01/01/21 07:36 Freq: Status: Active Protocol: Activity Type Activity Date Activity User E-Sign Co-Sign Detail Recorded Client Recorded Date Recorded By Document 01/01/21 07:52 Desktop 01/01/21 08:12 01/01/21 07:52 Wound Center Nurse 1 1-right arriaga cluster -Combined with other wound No -Current Size (cm) - Length 3.5 -Current Size (cm) - Width 7.5 -Current Size (cm) - Depth 0.1 -Total Square Cm 26.25 -Photo Taken Yes -Epithelialization Large 67-100% -Tunneling No -Undermining/Tunneling No -Circular Undermining No -Classification - Gama Grading ( Grade 1 Diabetic Ulcer) -Exudate Amt Small -Exudate Type Serosanguineous -Wound Margin Flat & Intact -Granulation Amt Small (1-33%) -Granulation Quality Roca -Slough/Fibrin Yes -Necrosis Amt Medium (34-66%) -Necrotic Tissue Type Adherent Slough -Structure Exposed N/A -Texture (Casandra-wound Skin Appearance) Assessed, Localized Edema -Moisture (Casandra-wound Skin Appearance) Assessed,Dry/ Scaly -Color (Casandra-wound Skin Appearance) Assessed, Hemosiderin Staining -Temperature (Casandra-wound Skin No Abnormality Appearance) (Pt Warm) -Tenderness on Palpation (Casandra-wound No Skin Appearance) -Ulcer Cleansing Rinsed/ Irrigated with Saline -Foul Odor after Cleansing No -Anesthetic Used 4% Lidocaine Solution Lower Limb Edema Present Yes Right Calf (cm) 44.6 Right Ankle (cm) 36.2 Left Calf (cm) 40.6 Left Ankle (cm) 27.6 - Nurse 3 - General Ulcer D/C NN Start: 01/01/21 07:36 Freq: Status: Active Protocol: Activity Type Activity Date Activity User E-Sign Co-Sign Detail Recorded Client Recorded Date Recorded By Document 01/01/21 08:55 [id number] 01/01/21 08:56 01/01/21 08:55 Wound Care Nurse 3 1-right arriaga cluster -Ulcer Cleansing Rinsed/ Irrigated with Saline -Foul Odor after Cleansing No -Primary Dressing Applied Aquacel AG 4x4, C Hydrogel ($) -Primary Dressing Covered/Secured with Dry Gauze & Roll Gauze, Secured with Tape -Aquacel AG 4x4 1 Right -Stockings Yes Left -Stockings Yes Pain Scale: 0-10 Numeric Is Patient Pain Free? Yes WC - Visit Discharge Discharge Condition Stable Ambulatory Status Ambulatory Transportation Private Auto Medication Reconcilliation completed & Yes provided to patient/care provider Clinical Summary of Care Provided Yes Wound debrided: Right arriaga ulcer cluster Laterality: Right Wound Grade/Stage: Gama 1 Type of Debridement: Excisional debridement Anesthesia Used: 4% Lidocaine Solution Depth: in the subcutaneous layer Percentage of wound debrided: 10 Instrument Used: 3mm curette Tissue Removed: Slough and devitalized tissue Severity: Fat Layer Exposed Amount of bleeding with debridement: Mild Bleeding Controlled with: Pressure Patient tolerated procedure: Patient tolerated procedure well Charges/Coding Visit Charges Office Visits / Consults: [id number] OV L4 New Procedures Integumentary [id number]: [id number] Debora subq tissue 20 sq cm/< Assessment/Plan Assessment/Plan (1) 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: CODE(S): E11.622 - Type 2 diabetes mellitus with other skin ulcer; L97.912 - Non-pressure chronic ulcer of unspecified part of right lower leg with fat layer exposed (2) Lymphedema of right lower extremity: CODE(S): I89.0 - Lymphedema, not elsewhere classified (3) History of pulmonary embolism: CODE(S): Z86.711 - Personal history of pulmonary embolism (4) Essential hypertension: CODE(S): I10 - Essential (primary) hypertension (5) Hyperlipidemia: CODE(S): E78.5 - Hyperlipidemia, unspecified QUALIFIERS: Hyperlipidemia type: unspecified Qualified Code(s): E78.5 - Hyperlipidemia, unspecified PLAN: Debridement performed today in clinic as annotated above. Aquacel Ag applied. At home wound-care instructions: Change dressing once daily or more frequently as needed due to contamination. Wash wounds daily with antibacterial soap and water, rinse and dry thoroughly before each dressing change. Compression: Continue daily use of compression sleeves. Off-loading: Avoid prolonged standing and/or dangling of legs. When seated, feet should be elevated at chest level. Frequent ambulation is encouraged. Diet: Patient encouraged to increase protein intake while taking caution to avoid high carbohydrate and/or sugar intake. The patient is a non-smoker. Labs/cultures/imaging: The patient completed a 7-day course of Keflex and doxycycline. Cultures deferred today due to no clinical signs of infection. Labs reviewed as annotated above. No additional lab work ordered today. RLE venous studies reviewed as annotated above. Bilateral lower extremity arterial studies ordered. Follow-up: Return to clinic in 1 week for re-evaluation with Nicholas Krishna NP?C. Return sooner or report to the emergency room should symptoms worsen, or new symptoms arise. Note: [employer] speech recognition record label intern software was used to create portions of this document. Sound-alike and misspelled words, as well as other record label intern errors may be contained in the documentation.
== END 2021-01-06 23:59 ==
LOC: WC 07:32
PROVIDERS: PCP Family Medicine Geriatric Medicine; Visit Provider Nurse Practitioner Family
DX: E11.622 Type 2 diabetes mellitus with other skin ulcer (principal); L97.912 Non-pressure chronic ulcer of unspecified part of right lower leg with fat layer exposed; I89.0 Lymphedema, not elsewhere classified; Z86.711 Personal history of pulmonary embolism; I10 Essential (primary) hypertension; E78.5 Hyperlipidemia, unspecified; E11.40 Type 2 diabetes mellitus with diabetic neuropathy, unspecified; Z79.01 Long term (current) use of anticoagulants; Z79.84 Long term (current) use of oral hypoglycemic drugs; Z87.891 Personal history of nicotine dependence
CPT/HCPCS: 11042; 11045; 99213; G0463

== ENCOUNTER 2021-01-07 14:15 | Outpatient (RCR) | payer MEDICARE, SELFPAY ==
[2021-01-07 00:34] VITALS: BP 148/81; PULSE 86; RESP 16; TEMP 36.9
[2021-01-07 14:40] VITALS: BP 131/84; PULSE 86; RESP 18; TEMP 36.1; O2SAT 98; BMI 32.4
--- NOTE | 2021-01-07 15:18 | PCM.WC.PN ---
History of Present Illness Date of Service: 01/07/21 Chief Complaint: right leg ulcers History of Wound: Sukumar is a pleasant 80-year-old white male who presents to the wound healing center today, 01/01/2021, for evaluation of right lower extremity ulcer. He has a past medical history significant for type 2 diabetes mellitus, right lower extremity lymphedema, hypertension, hyperlipidemia, diabetic neuropathy, and pulmonary embolism (approximately 5 years ago, r/t traveling). He is . He reports his ulcer occurred after being outside mowing his lawn. He believes he may have bumped his leg on his mower. After going inside his house and showering, he noticed a large blister had developed on his right leg. He applied pressure to the blister and it ruptured a large amount of clear fluid. His ulcer was initially evaluated by Dr. Samaniego on 12/21/2020. A culture on 12/21/2020 revealed 2+ Serratia marcescens, 2+ Aeromonas hydrophilia/cavia, 1+ staph aureus, and rare Klebsiella oxytoca. He was started on a 7-day course of doxycycline and a 7-day course of Keflex, and has completed these antibiotics. Labs from 12/21/2020 revealed an unremarkable CBCD, a CMP with a glucose 255, BUN 21, and estimated GFR 63, and A1c of 11.1%, and normal uric acid and TSH levels. He had a positive Staph aureus PCR and a negative MRSA PCR. Right lower extremity venous studies revealed valvular competence and no evidence of DVT. He has been performing daily wound care. He washes his right lower extremity ulcers daily with antibacterial soap and water and applies Neosporin and a nonadherent dressing to the ulcers. He states his right lower extremity swelling is no worse than his baseline. He uses compression to his bilateral lower extremities daily. He typically sleeps in a recliner or in bed. He does note improvement in his lower extremity swelling with laying flat in bed. He denies fever, chills, general malaise, or poor appetite. He denies any purulent or malodorous drainage from his ulcers. He denies any increased warmth or redness surrounding his ulcers. Progress of Wound: site is healed, no new concerns, denies any fever, chills or sob. ROS negative Objective Data Objective Data Vital Signs: Vital Signs Temp Pulse Resp BP Pulse Ox 97 F L 86 18 131/84 H 98 01/07/21 14:40 01/07/21 14:40 01/07/21 14:40 01/07/21 14:40 01/07/21 14:40 Oxygen Delivery Method Room Air Weight: 246 lb Body Mass Index (BMI) 32.4 Charges/Coding Visit Charges Office Visits / Consults: 87052 OV L3 Est Physical Exam Const alert, no apparent distress and healthy appearing General Appearance: cooperative, comfortable and well kempt HEENT Head and Scalp: normocephalic and atraumatic Eyes EOMs intact bilaterally Neck supple and no JVD Lymph Lymphatic: lymphedema moderate (RLE) Resp normal respiratory effort, normal air movement and no use of accessory muscles Auscultation: clear to auscultation bilaterally; Negative for crackles, rales, rhonchi or wheezes Cardio regular rate and regular rhythm GI normal to inspection, nondistended, normoactive bowel sounds Extremity normal capillary refill, no joint enlargement and no calf tenderness General Extremity: edema right lower extremity moderate; Negative for clubbing or cyanosis Peripheral Pulses: Yes dorsalis pedis pulses present bilateral 2+ Skin Wounds: wounds noted No malodorous Wound Narrative: Ulcer cluster of right lower extremity healed, There is no purulent/malodorous drainage. 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: CODE(S): E11.622 - Type 2 diabetes mellitus with other skin ulcer; L97.912 - Non-pressure chronic ulcer of unspecified part of right lower leg with fat layer exposed (2) Lymphedema of right lower extremity: CODE(S): I89.0 - Lymphedema, not elsewhere classified (3) History of pulmonary embolism: CODE(S): Z86.711 - Personal history of pulmonary embolism (4) Essential hypertension: CODE(S): I10 - Essential (primary) hypertension (5) Hyperlipidemia: CODE(S): E78.5 - Hyperlipidemia, unspecified QUALIFIERS: Hyperlipidemia type: unspecified Qualified Code(s): E78.5 - Hyperlipidemia, unspecified PLAN: At home wound-care instructions: wound is healed, for protection cover with adaptic and gauze and change daily for the next week. Compression: Continue daily use of compression sleeves. Off-loading: Avoid prolonged standing and/or dangling of legs. When seated, feet should be elevated at chest level. Frequent ambulation is encouraged. Diet: Patient encouraged to increase protein intake while taking caution to avoid high carbohydrate and/or sugar intake. The patient is a non-smoker. Labs/cultures/imaging: The patient completed a 7-day course of Keflex and doxycycline. Bilateral lower extremity arterial studies pending. Follow-up: wounds are healed, may be discharged from wound healing center. 25 min was spent today coordinating care and reviewing labs and formulating plan of care. Note: [employer] speech recognition dot net developer software was used to create portions of this document. Sound-alike and misspelled words, as well as other dot net developer errors may be contained in the documentation.
== END 2021-01-07 15:26 | disposition home or self-care (01) ==
LOC: WC 14:15
PROVIDERS: PCP Family Medicine Geriatric Medicine; Visit Provider Nurse Practitioner Family
DX: E11.622 Type 2 diabetes mellitus with other skin ulcer (principal); L97.912 Non-pressure chronic ulcer of unspecified part of right lower leg with fat layer exposed; I89.0 Lymphedema, not elsewhere classified; I10 Essential (primary) hypertension; E78.5 Hyperlipidemia, unspecified; Z86.711 Personal history of pulmonary embolism; E11.40 Type 2 diabetes mellitus with diabetic neuropathy, unspecified
CPT/HCPCS: 97597; 99213; G0463

== ENCOUNTER → 2021-03-23 14:43 | Outpatient (CLI) | payer MEDICARE, SELFPAY ==
[2021-03-23 16:37] LABS: Absolute Lymphocyte Count 1.58 X10^3/uL (0.83-4.51); Absolute Neutrophil Count 3.4 X10^3/uL (2.0-7.7); Basophil# 0.02 X10^3/uL; Basophil% 0.4 % (0-1); Eosinophil# 0.12 X10^3/uL; Eosinophils% 2.1 % (0-5); Hematocrit 48.1 % (40-54); Hemoglobin 15.3 g/dL (13.0-16.5); Lymphocyte # 1.58 X10^3/ul (0.83-4.51); Mean Corp Hgb Conc 31.8 g/dL (32-36); Mean Corpuscular Hgb 32.1 pg (27.0-32.0); Mean Corpuscular Volume 101.1 fL (80-94); Mean Platelet Vol. 11.2 fl (6.2-12.0); Monocyte# 0.53 X10^3/uL; Monocyte% 9.4 % (0-10); NRBC Flagged by Analyzer 0 % (0-5); Neutrophil # 3.38 X10^3/uL (2.7-7.7); Neutrophil % 59.7 % (47-70); Platelet Count 164 K/mm3 (150-450); RBC Distribution Width CV 13.3 % (11.6-14.6); RBC Distribution Width SD 50.5 fl (35.1-43.9); Red Blood Count 4.76 M/mm3 (4.6-6.2); White Blood Count 5.7 K/mm3 (4.4-11.0)
[2021-03-23 17:21] LABS: ALB/GLOB Ratio 0.9 RATIO (0.9-2.4); AST(SGOT) 16 U/L (15-37); Alanine Aminotransfer ALT/SGPT 28 U/L (16-61); Albumin, Serum 3.5 g/dL (3.2-5.0); Alkaline Phosphatase 56 U/L (45-117); Anion Gap 5 (5-15); BUN 15 mg/dL (7-18); BUN/Creat Ratio 14.3 RATIO (10-20); Calcium,Total 9.3 mg/dL (8.5-10.1); Chloride 107 mmol/L (98-107); Creatinine, Serum 1.05 mg/dL (0.70-1.30); EST Glomerular Filtration Rate 72 mL/min (>60); Est Glom Filt Rate - Afr Amer 88 mL/min (>60); Globulin 3.9 g/dL (2.2-4.2); Glucose 62 mg/dL (74-106); Potassium 4.1 mmol/L (3.5-5.1); Protein, Total 7.4 g/dL (6.4-8.2); Sodium Level 140 mmol/L (136-145); Thyroid Stim Hormone (TSH) 3.05 uIU/mL (0.358-3.74)
[2021-03-23 17:22] LABS: Vitamin D,25 Hydroxy 55.3 ng/mL
== END ==
PROVIDERS: PCP Family Medicine Geriatric Medicine; Visit Provider Family Medicine Geriatric Medicine
DX: E11.9 Type 2 diabetes mellitus without complications (principal); E55.9 Vitamin D deficiency, unspecified; I10 Essential (primary) hypertension; M10.9 Gout, unspecified
CPT/HCPCS: 36415; 80053; 82306; 84443; 84550; 85025

== ENCOUNTER 2021-06-06 11:33 | Emergency (ER) | payer MEDICARE, SELFPAY ==
[2021-06-06 11:36] VITALS: BP 135/81; PULSE 113; RESP 18; TEMP 36.6; O2SAT 96; BMI 32.3
--- NOTE | 2021-06-06 12:08 | EKG12_ITS ---
Test Reason : TRAUMA Blood Pressure : / mmHG Vent. Rate : 119 BPM Atrial Rate : 119 BPM P-R Int : 184 ms QRS Dur : 102 ms QT Int : 312 ms P-R-T Axes : 076 012 035 degrees QTc Int : 438 ms Sinus tachycardia Low voltage QRS Borderline ECG Confirmed by MARGARET MAC, SOILA ([id number]), publications editor EVANGELINA WALKER ([id number]) on 06/08/2021 9:14:40 AM Referred By: KEV Confirmed By:SOILA ROBLES MD
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
[2021-06-06 12:31] LABS: Absolute Lymphocyte Count 1.04 X10^3/uL (0.83-4.51); Absolute Neutrophil Count 5.8 X10^3/uL (2.0-7.7); Basophil# 0.02 X10^3/uL; Basophil% 0.3 % (0-1); Eosinophil# 0.09 X10^3/uL; Eosinophils% 1.2 % (0-5); Hematocrit 43.6 % (40-54); Hemoglobin 14.3 g/dL (13.0-16.5); Lymphocyte # 1.04 X10^3/ul (0.83-4.51); Lymphocyte % 13.5 % (19-41); Mean Corp Hgb Conc 32.8 g/dL (32-36); Mean Corpuscular Hgb 32.6 pg (27.0-32.0); Mean Corpuscular Volume 99.5 fL (80-94); Mean Platelet Vol. 10.3 fl (6.2-12.0); Monocyte# 0.61 X10^3/uL; Monocyte% 7.9 % (0-10); NRBC Flagged by Analyzer 0 % (0-5); Neutrophil # 5.84 X10^3/uL (2.7-7.7); Neutrophil % 76.1 % (47-70); Platelet Count 164 K/mm3 (150-450); RBC Distribution Width CV 13.4 % (11.6-14.6); RBC Distribution Width SD 49.5 fl (35.1-43.9); Red Blood Count 4.38 M/mm3 (4.6-6.2); White Blood Count 7.7 K/mm3 (4.4-11.0)
[2021-06-06 12:33] VITALS: PULSE 104; RESP 18; O2SAT 96
[2021-06-06 12:44] LABS: International Normalized Ratio 1.4; Partial Thromboplast Time 28.5 Seconds (24.1-36.2); Prothrombin Time (Protime)PT. 16.1 SECONDS (11.7-14.9)
[2021-06-06 12:53] LABS: ALB/GLOB Ratio 0.8 RATIO (0.9-2.4); AST(SGOT) 54 U/L (15-37); Alanine Aminotransfer ALT/SGPT 48 U/L (16-61); Albumin, Serum 3.1 g/dL (3.2-5.0); Alkaline Phosphatase 63 U/L (45-117); BUN 16 mg/dL (7-18); BUN/Creat Ratio 14.2 RATIO (10-20); Calcium,Total 9.1 mg/dL (8.5-10.1); Chloride 109 mmol/L (98-107); Creatinine, Serum 1.13 mg/dL (0.70-1.30); EST Glomerular Filtration Rate 67 mL/min (>60); Est Glom Filt Rate - Afr Amer 81 mL/min (>60); Estimated Creatinine Clearance 59.91 ml/min; Globulin 3.7 g/dL (2.2-4.2); Glucose 172 mg/dL (74-106); Potassium 4.7 mmol/L (3.5-5.1); Protein, Total 6.8 g/dL (6.4-8.2); Sodium Level 140 mmol/L (136-145); Troponin-I HS 8 pg/mL (3.0-78.0)
[2021-06-06 12:54] LABS: Anion Gap 4 (5-15)
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
--- NOTE | 2021-06-06 12:56 | CT_ITS ---
HISTORY: trauma. TECHNIQUE: Helically acquired images were obtained of the cervical spine. 2D reformatted images were reviewed. A radiation dose optimization technique was used for this scan. # of images incl. paperwork: 440. IV Contrast dosage and agent: None. COMPARISON: None. FINDINGS: VERTEBRAE: No acute fracture identified. VERTEBRAL ALIGNMENT: No significant anterior or posterior subluxation. Straightening of the cervical lordosis. DISCS: Degenerative discogenic changes. Posterior disc bulge osteophyte complexes with uncovertebral and facet arthropathy. Ventral extradural ossification of pannus at C1-2.22 C2-3: Minimal narrowing of the thecal sac. C3-4: Mild central canal stenosis and bilateral foraminal narrowing. C4-5: Moderate central canal stenosis and bilateral foraminal narrowing. C5-6, C6-7: Mild-moderate central canal stenosis and bilateral foraminal narrowing. SOFT TISSUES: No prevertebral soft tissue swelling. CT/Spine Cervical without Contras IMPRESSION: No evidence of acute cervical spinal fracture or dislocation. Multilevel degenerative disc disease as described above. Individualized dose optimization techniques were used for this CT. at 1351 Reported and signed by: Yenny Paula MD Electronically Signed: Yenny Paula MD at 13:50 EST Tel , Service support ,
[2021-06-06 13:00] VITALS: BP 114/78; PULSE 116; RESP 20; O2SAT 97
[2021-06-06] MEDS: Diphth,Pertuss(Acell),Tet Vac 0.5 ML Vial IM (13:37)
[2021-06-06 14:00] VITALS: BP 112/67; PULSE 120; RESP 20; O2SAT 98
--- NOTE | 2021-06-06 15:04 | ED.RN ---
PHYSICANS ETA 60-90 MINUTES.
[2021-06-06 15:09] VITALS: BP 97/69; PULSE 122; RESP 19; O2SAT 96
[2021-06-06] MEDS: 0.9% Normal Saline 1,000 ML 999 ML IV (15:32)
[2021-06-06 15:40] VITALS: BP 105/62; PULSE 117; RESP 20; O2SAT 97
--- NOTE | 2021-06-06 15:42 | ED.RN ---
CALLED PHARMACY FOR TXA
== END 2021-06-06 16:16 | disposition short-term general hospital (02) ==
PROVIDERS: Emergency Provider Emergency Medicine; PCP Family Medicine Geriatric Medicine
DX: S32.17XA Type 4 fracture of sacrum, initial encounter for closed fracture (principal); S82.451A Displaced comminuted fracture of shaft of right fibula, initial encounter for closed fracture; S36.00XA Unspecified injury of spleen, initial encounter; S50.312A Abrasion of left elbow, initial encounter; S30.0XXA Contusion of lower back and pelvis, initial encounter; S00.03XA Contusion of scalp, initial encounter; T14.8XXA Other injury of unspecified body region, initial encounter; V03.90XA Pedestrian on foot injured in collision with car, pick-up truck or van, unspecified whether traffic or nontraffic accident, initial encounter; Y93.9 Activity, unspecified; Y92.410 Unspecified street and highway as the place of occurrence of the external cause; Y99.9 Unspecified external cause status; R91.1 Solitary pulmonary nodule; I67.82 Cerebral ischemia; J32.0 Chronic maxillary sinusitis; J32.3 Chronic sphenoidal sinusitis; E11.9 Type 2 diabetes mellitus without complications; I10 Essential (primary) hypertension; E78.5 Hyperlipidemia, unspecified; I89.0 Lymphedema, not elsewhere classified; Z79.01 Long term (current) use of anticoagulants; Z79.84 Long term (current) use of oral hypoglycemic drugs; Z86.711 Personal history of pulmonary embolism; Z87.891 Personal history of nicotine dependence
CPT/HCPCS: 70450; 71045; 71260; 72125; 72170; 73564; 74177; 80053; 84484; 85025; 85610; 85730; 86850; 86900; 86901; 90715; 93005; 96361; 96365; 99285; J7030; Q9967; A4216

== ENCOUNTER 2021-06-08 20:40 | Inpatient (IN) | payer MEDICARE, SELFPAY ==
[2021-06-08 21:29] VITALS: BP 130/68; PULSE 102; RESP 18; TEMP 36.3; O2SAT 96; BMI 33.2
[2021-06-08 21:51] LABS: Bedside Glucose 127 mg/dL (70-110)
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
[2021-06-09 06:04] LABS: Absolute Lymphocyte Count 0.81 X10^3/uL (0.83-4.51); Absolute Neutrophil Count 3.1 X10^3/uL (2.0-7.7); Basophil# 0.01 X10^3/uL; Basophil% 0.2 % (0-1); Eosinophil# 0.16 X10^3/uL; Eosinophils% 3.5 % (0-5); Hematocrit 26.9 % (40-54); Hemoglobin 8.9 g/dL (13.0-16.5); Lymphocyte # 0.81 X10^3/ul (0.83-4.51); Lymphocyte % 17.6 % (19-41); Mean Corp Hgb Conc 33.1 g/dL (32-36); Mean Corpuscular Hgb 31.8 pg (27.0-32.0); Mean Corpuscular Volume 96.1 fL (80-94); Mean Platelet Vol. 10.9 fl (6.2-12.0); Monocyte# 0.43 X10^3/uL; Monocyte% 9.4 % (0-10); NRBC Flagged by Analyzer 0 % (0-5); Neutrophil # 3.13 X10^3/uL (2.7-7.7); Neutrophil % 68.2 % (47-70); Platelet Count 101 K/mm3 (150-450); RBC Distribution Width CV 13.5 % (11.6-14.6); RBC Distribution Width SD 47.9 fl (35.1-43.9); White Blood Count 4.6 K/mm3 (4.4-11.0)
[2021-06-09 06:14] LABS: Anion Gap 8 (5-15); BUN 36 mg/dL (7-18); BUN/Creat Ratio 33.6 RATIO (10-20); Calcium,Total 8.4 mg/dL (8.5-10.1); Chloride 105 mmol/L (98-107); Creatinine, Serum 1.07 mg/dL (0.70-1.30); EST Glomerular Filtration Rate 71 mL/min (>60); Est Glom Filt Rate - Afr Amer 86 mL/min (>60); Estimated Creatinine Clearance 61.44 ml/min; Glucose 134 mg/dL (74-106); Potassium 4.1 mmol/L (3.5-5.1); Sodium Level 137 mmol/L (136-145)
[2021-06-09] MEDS: Febuxostat 40 MG TABLET PO (06:21)
[2021-06-09] MEDS: Senna/Docusate Sodium 1 Tablet 2 TABLET PO ×2 (06:21→17:07)
[2021-06-09] MEDS: Lisinopril 10 MG Tablet PO (06:21)
[2021-06-09] MEDS: Polyethylene Glycol 3350 17 GM PACKET PO (06:22)
[2021-06-09 06:41] LABS: Bedside Glucose 133 mg/dL (70-110)
[2021-06-09] MEDS: metFORMIN HCl 500 MG Tablet PO ×2 (10:29→17:06)
[2021-06-09] MEDS: Tuberculin,Purif.prot.deriv. 50 TU/ML Vial 0.1 ML ID (10:29)
[2021-06-09 11:01] LABS: Bedside Glucose 176 mg/dL (70-110)
--- NOTE | 2021-06-09 12:58 | CASEMGMT ---
Social Work Met with patient for initial assessment. Discussed code status. Confirmed full code. MOLST form completed, communication to , placed in chart. Explained [facility] insurance and continued stay is not guaranteed at each update. The goal is for pt to return home alone and no family to support 30/01. Pt's shower is in basement with steps and has 3 steps to enter. No AD used prior. SW to continue to follow for discharge planning. Millicent Smith, LPC DIRECTOR SAFETY
[2021-06-09 14:33] VITALS: BP 99/64; PULSE 118; RESP 24; TEMP 36.1; O2SAT 96
[2021-06-09 15:56] LABS: Bedside Glucose 148 mg/dL (70-110)
--- NOTE | 2021-06-09 18:00 | NURSING ---
Dr Samaniego aware of congestion and cold symptoms. Orders received for a nasal spray.
[2021-06-09] MEDS: Ipratropium Bromide 0.06% NASAL SPRAY 2 SPRAY NASAL (21:08)
[2021-06-09] MEDS: Atorvastatin Calcium 40 MG Tablet PO (21:09)
[2021-06-09] MEDS: Nystatin Powder 15gm Bottle 1 APPLIC TOPICAL (21:11)
[2021-06-09 21:46] LABS: Bedside Glucose 109 mg/dL (70-110)
[2021-06-10] MEDS: Acetaminophen 500 MG Tablet 1000 MG PO (04:28)
[2021-06-10] MEDS: Febuxostat 40 MG TABLET PO (04:29)
[2021-06-10] MEDS: Lisinopril 10 MG Tablet PO (04:29)
[2021-06-10] MEDS: Polyethylene Glycol 3350 17 GM PACKET PO (04:29)
[2021-06-10] MEDS: Senna/Docusate Sodium 1 Tablet 2 TABLET PO ×2 (04:29→17:31)
[2021-06-10] MEDS: Ipratropium Bromide 0.06% NASAL SPRAY 2 SPRAY NASAL ×2 (04:30→17:31)
[2021-06-10 04:34] VITALS: BP 111/57; PULSE 105
[2021-06-10 06:30] LABS: Bedside Glucose 147 mg/dL (70-110)
[2021-06-10] MEDS: metFORMIN HCl 500 MG Tablet PO ×2 (09:03→17:31)
[2021-06-10 10:51] LABS: Bedside Glucose 145 mg/dL (70-110)
--- NOTE | 2021-06-10 14:51 | PT ---
Pt noted to have a wet sock on R foot. When sock was removed, knee immobilizer was also noted to be wet. Nursing notified. Pt's knee immobilizer was removed and pt was noted to have water blisters and drainage of fluid on RLE. Nursing to call down for new knee immobilizer for pt.
[2021-06-10 15:51] LABS: Bedside Glucose 174 mg/dL (70-110)
[2021-06-10 16:00] VITALS: BP 117/57; PULSE 114; RESP 18; TEMP 37; O2SAT 92
[2021-06-10 20:45] VITALS: RESP 16; O2SAT 96
[2021-06-10] MEDS: Furosemide 40 MG Tablet PO (21:02)
[2021-06-10] MEDS: Atorvastatin Calcium 40 MG Tablet PO (21:04)
[2021-06-10 21:15] LABS: Bedside Glucose 146 mg/dL (70-110)
--- NOTE | 2021-06-11 00:45 | NURSING ---
Patient has multiple weeping blisters to RLE, covered with ABD pads underneath new immobilizer. Wound care consult placed.
[2021-06-11 06:25] LABS: Bedside Glucose 165 mg/dL (70-110)
[2021-06-11] MEDS: Senna/Docusate Sodium 1 Tablet 2 TABLET PO ×2 (07:02→07:07)
[2021-06-11] MEDS: Febuxostat 40 MG TABLET PO ×2 (07:02→07:07)
[2021-06-11] MEDS: Lisinopril 10 MG Tablet PO ×2 (07:03→07:07)
[2021-06-11] MEDS: Ipratropium Bromide 0.06% NASAL SPRAY 2 SPRAY NASAL ×2 (07:07→16:42)
[2021-06-11] MEDS: Polyethylene Glycol 3350 17 GM PACKET PO (07:08)
[2021-06-11] MEDS: metFORMIN HCl 500 MG Tablet PO ×2 (09:32→16:42)
[2021-06-11] MEDS: Potassium Chloride Oral Tablet 20 MEQ PO (09:33)
[2021-06-11] MEDS: Furosemide 40 MG Tablet PO (09:33)
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
[2021-06-11 11:40] LABS: Bedside Glucose 119 mg/dL (70-110)
--- NOTE | 2021-06-11 14:30 | WOUNDNOTE ---
wound photo: right lower leg
--- NOTE | 2021-06-11 14:31 | WOUNDNOTE ---
wound photo: right lower leg
--- NOTE | 2021-06-11 14:31 | WOUNDNOTE ---
wound photo: right posterior lower leg
--- NOTE | 2021-06-11 15:06 | CASEMGMT ---
Social Work Spoke with pt about request to DC. Therapy states he is progressing well and safe to DC home alone. Pt requesting DC 06/18 - IDT agreeable. Dtr can purchase shower chair. Referral made to [facility] for FWW. Provided pt with [facility] list with quality and resource data. Pt prefers [facility]. Referral made for PT/OT/SN. Family to transport. Plan: DC home alone 06/18, [facility] PT/OT/SN, FWW Millicent Smith, CANE PILERGlenda WELLS
[2021-06-11 16:00] VITALS: BP 122/58; PULSE 115; RESP 22; TEMP 36.5; O2SAT 96
[2021-06-11 16:01] LABS: Bedside Glucose 137 mg/dL (70-110)
[2021-06-11] MEDS: Nystatin Powder 15gm Bottle 1 APPLIC TOPICAL (16:43)
[2021-06-11] MEDS: Atorvastatin Calcium 40 MG Tablet PO (21:08)
[2021-06-11 21:41] LABS: Bedside Glucose 167 mg/dL (70-110)
[2021-06-12 06:26] LABS: Bedside Glucose 203 mg/dL (70-110)
[2021-06-12 06:33] VITALS: BP 123/63; PULSE 112
[2021-06-12] MEDS: Senna/Docusate Sodium 1 Tablet 2 TABLET PO (06:39)
[2021-06-12] MEDS: Nystatin Powder 15gm Bottle 1 APPLIC TOPICAL ×2 (06:40→18:18)
[2021-06-12] MEDS: Ipratropium Bromide 0.06% NASAL SPRAY 2 SPRAY NASAL ×2 (06:40→18:18)
[2021-06-12] MEDS: Furosemide 40 MG Tablet PO (06:40)
[2021-06-12] MEDS: metFORMIN HCl 500 MG Tablet PO ×2 (08:32→18:18)
[2021-06-12] MEDS: Potassium Chloride Oral Tablet 20 MEQ PO (08:33)
[2021-06-12 11:36] LABS: Bedside Glucose 159 mg/dL (70-110)
[2021-06-12 15:40] VITALS: BP 107/72; PULSE 108; RESP 14; TEMP 36.6; O2SAT 96
[2021-06-12 16:30] LABS: Bedside Glucose 122 mg/dL (70-110)
[2021-06-12 20:30] VITALS: O2SAT 96
[2021-06-12] MEDS: Atorvastatin Calcium 40 MG Tablet PO (20:43)
[2021-06-12 21:45] LABS: Bedside Glucose 131 mg/dL (70-110)
[2021-06-13] MEDS: Febuxostat 40 MG TABLET PO (06:23)
[2021-06-13] MEDS: Furosemide 40 MG Tablet PO (06:24)
[2021-06-13] MEDS: Lisinopril 10 MG Tablet PO (06:24)
[2021-06-13] MEDS: Ipratropium Bromide 0.06% NASAL SPRAY 2 SPRAY NASAL ×2 (06:24→17:11)
[2021-06-13] MEDS: Nystatin Powder 15gm Bottle 1 APPLIC TOPICAL ×2 (06:26→17:12)
[2021-06-13 06:29] VITALS: BP 128/73; PULSE 110
[2021-06-13 06:46] LABS: Bedside Glucose 134 mg/dL (70-110)
[2021-06-13] MEDS: Potassium Chloride Oral Tablet 20 MEQ PO (08:15)
[2021-06-13] MEDS: metFORMIN HCl 500 MG Tablet PO ×2 (08:15→17:15)
[2021-06-13 11:21] LABS: Bedside Glucose 174 mg/dL (70-110)
[2021-06-13 16:00] VITALS: BP 107/77; PULSE 116; RESP 16; TEMP 36; O2SAT 99
[2021-06-13 17:35] LABS: Bedside Glucose 116 mg/dL (70-110)
[2021-06-13] MEDS: Atorvastatin Calcium 40 MG Tablet PO (20:32)
--- NOTE | 2021-06-13 20:44 | NURSING ---
Dr. Samaniego notified patient eyes observed with yellow discoloration, notified of current order for Uloric and side effect of possible elevated liver enzymes. New order received for Liver profile to be drawn tonight
[2021-06-13 21:55] LABS: Bedside Glucose 101 mg/dL (70-110)
[2021-06-13 22:36] LABS: AST(SGOT) 20 U/L (15-37); Alanine Aminotransfer ALT/SGPT 26 U/L (16-61); Albumin, Serum 2.7 g/dL (3.2-5.0); Alkaline Phosphatase 73 U/L (45-117); Bilirubin, Direct 0.51 mg/dL (0.00-0.30); Globulin 3.8 g/dL (2.2-4.2); Protein, Total 6.5 g/dL (6.4-8.2)
--- NOTE | 2021-06-13 23:18 | NURSING ---
Patient discovered up and in bathroom by RU[employer]. Patient re-educated on using call light and waiting for assistance. Will continue to monitor.
[2021-06-14] MEDS: Ipratropium Bromide 0.06% NASAL SPRAY 2 SPRAY NASAL ×2 (04:48→18:37)
[2021-06-14] MEDS: Senna/Docusate Sodium 1 Tablet 2 TABLET PO (04:49)
[2021-06-14] MEDS: Febuxostat 40 MG TABLET PO (04:50)
[2021-06-14] MEDS: Lisinopril 10 MG Tablet PO (04:50)
[2021-06-14] MEDS: Furosemide 40 MG Tablet PO (04:50)
[2021-06-14] MEDS: Nystatin Powder 15gm Bottle 1 APPLIC TOPICAL ×2 (04:51→18:37)
[2021-06-14 06:40] LABS: Bedside Glucose 140 mg/dL (70-110)
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
[2021-06-14] MEDS: Potassium Chloride Oral Tablet 20 MEQ PO (09:08)
[2021-06-14] MEDS: metFORMIN HCl 500 MG Tablet PO ×2 (09:57→18:37)
[2021-06-14 11:05] LABS: Bedside Glucose 188 mg/dL (70-110)
[2021-06-14 13:41] VITALS: BP 103/69; PULSE 116; RESP 16; TEMP 36.6; O2SAT 96
--- NOTE | 2021-06-14 14:13 | NURSING ---
Physical therapy assessed patient and can be up ad kellie in room. Patient will still need assistance with immobilizer.
--- NOTE | 2021-06-14 16:06 | NURSING ---
Resident and daughter, Madonna, notified of staff member testing positive for COVID.
[2021-06-14 16:21] LABS: Bedside Glucose 128 mg/dL (70-110)
[2021-06-14 21:26] LABS: Bedside Glucose 120 mg/dL (70-110)
[2021-06-14 21:40] VITALS: O2SAT 96
[2021-06-14] MEDS: Atorvastatin Calcium 40 MG Tablet PO (21:42)
[2021-06-15 05:15] VITALS: BP 107/64; PULSE 115
[2021-06-15] MEDS: Senna/Docusate Sodium 1 Tablet 2 TABLET PO (05:15)
[2021-06-15] MEDS: Furosemide 40 MG Tablet PO (05:15)
[2021-06-15] MEDS: Febuxostat 40 MG TABLET PO (05:15)
[2021-06-15] MEDS: Lisinopril 10 MG Tablet PO (05:15)
[2021-06-15] MEDS: Ipratropium Bromide 0.06% NASAL SPRAY 2 SPRAY NASAL ×2 (05:15→16:55)
[2021-06-15] MEDS: Nystatin Powder 15gm Bottle 1 APPLIC TOPICAL ×2 (05:16→16:57)
[2021-06-15 05:41] LABS: ALB/GLOB Ratio 0.7 RATIO (0.9-2.4); AST(SGOT) 19 U/L (15-37); Alanine Aminotransfer ALT/SGPT 23 U/L (16-61); Albumin, Serum 2.5 g/dL (3.2-5.0); Alkaline Phosphatase 67 U/L (45-117); Anion Gap 6 (5-15); BUN 24 mg/dL (7-18); BUN/Creat Ratio 26.1 RATIO (10-20); Calcium,Total 8.3 mg/dL (8.5-10.1); Chloride 103 mmol/L (98-107); Creatinine, Serum 0.92 mg/dL (0.70-1.30); EST Glomerular Filtration Rate 84 mL/min (>60); Est Glom Filt Rate - Afr Amer 102 mL/min (>60); Estimated Creatinine Clearance 71.46 ml/min; Globulin 3.5 g/dL (2.2-4.2); Glucose 80 mg/dL (74-106); Potassium 4.1 mmol/L (3.5-5.1); Sodium Level 134 mmol/L (136-145)
[2021-06-15 06:35] LABS: Bedside Glucose 97 mg/dL (70-110)
[2021-06-15] MEDS: Potassium Chloride Oral Tablet 20 MEQ PO (08:25)
[2021-06-15] MEDS: metFORMIN HCl 500 MG Tablet PO ×2 (08:25→16:56)
[2021-06-15 11:31] LABS: Bedside Glucose 104 mg/dL (70-110)
[2021-06-15 13:54] VITALS: BP 110/57; PULSE 101; RESP 18; TEMP 36.3; O2SAT 97
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
[2021-06-15 17:00] LABS: Bedside Glucose 75 mg/dL (70-110)
--- NOTE | 2021-06-15 18:32 | NURSING ---
Elevated pulse greater than 100 most days. Usually runs around 115 beats per min. Reported to Dr Samaniego and he starts resident on Metoprolol. Patient aware.
[2021-06-15 19:24] VITALS: PULSE 120
[2021-06-15] MEDS: Metoprolol Tartrate 25 MG Tablet 12.5 MG PO (19:24)
[2021-06-15 21:03] VITALS: O2SAT 95
[2021-06-15] MEDS: Atorvastatin Calcium 40 MG Tablet PO (21:09)
--- NOTE | 2021-06-15 21:25 | NURSING ---
Pt's evening blood sugar 86, encouraged pt to have a snack, refused at this time, states that's a good blood sugar for me. Stated he will drink some of his diet coke. Will continue to monitor.
[2021-06-15 22:00] LABS: Bedside Glucose 86 mg/dL (70-110)
[2021-06-16 05:50] LABS: Absolute Lymphocyte Count 1.72 X10^3/uL (0.83-4.51); Absolute Neutrophil Count 5.4 X10^3/uL (2.0-7.7); Basophil# 0.03 X10^3/uL; Basophil% 0.4 % (0-1); Eosinophil# 0.09 X10^3/uL; Eosinophils% 1.1 % (0-5); Hematocrit 29.6 % (40-54); Hemoglobin 9.8 g/dL (13.0-16.5); Lymphocyte # 1.72 X10^3/ul (0.83-4.51); Mean Corp Hgb Conc 33.1 g/dL (32-36); Mean Corpuscular Hgb 32.7 pg (27.0-32.0); Mean Corpuscular Volume 98.7 fL (80-94); Mean Platelet Vol. 9.7 fl (6.2-12.0); Monocyte# 0.82 X10^3/uL; NRBC Flagged by Analyzer 0 % (0-5); Neutrophil # 5.44 X10^3/uL (2.7-7.7); Neutrophil % 66.2 % (47-70); Platelet Count 187 K/mm3 (150-450); RBC Distribution Width CV 15.8 % (11.6-14.6); RBC Distribution Width SD 53.4 fl (35.1-43.9); White Blood Count 8.2 K/mm3 (4.4-11.0)
[2021-06-16] MEDS: Lisinopril 10 MG Tablet PO (05:56)
[2021-06-16] MEDS: Senna/Docusate Sodium 1 Tablet 2 TABLET PO (05:56)
[2021-06-16] MEDS: Furosemide 40 MG Tablet PO (05:56)
[2021-06-16] MEDS: Febuxostat 40 MG TABLET PO (05:56)
[2021-06-16] MEDS: Potassium Chloride Oral Tablet 20 MEQ PO (05:56)
[2021-06-16 05:57] VITALS: BP 118/63; PULSE 108
[2021-06-16] MEDS: Nystatin Powder 15gm Bottle 1 APPLIC TOPICAL ×2 (05:57→17:45)
[2021-06-16] MEDS: Polyethylene Glycol 3350 17 GM PACKET PO (05:57)
[2021-06-16] MEDS: Metoprolol Tartrate 25 MG Tablet 12.5 MG PO ×2 (05:57→17:47)
[2021-06-16] MEDS: Ipratropium Bromide 0.06% NASAL SPRAY 2 SPRAY NASAL ×2 (06:05→17:44)
[2021-06-16 06:17] LABS: Anion Gap 6 (5-15); BUN 22 mg/dL (7-18); Calcium,Total 8.5 mg/dL (8.5-10.1); Chloride 103 mmol/L (98-107); Glucose 66 mg/dL (74-106); Potassium 4.7 mmol/L (3.5-5.1); Sodium Level 134 mmol/L (136-145)
[2021-06-16 06:26] LABS: Bedside Glucose 68 mg/dL (70-110)
[2021-06-16] MEDS: metFORMIN HCl 500 MG Tablet PO ×2 (08:36→17:45)
--- NOTE | 2021-06-16 10:01 | CASEMGMT ---
Social Work IDT met with patient, son and dtr via conference call for care plan meeting. Discussed patient's progress in PT/OT/ST and nursing. Pt progressing well. Explained [facility] insurance with [employer] 06/15 and pt is requesting to DC 06/18. [facility] PT/OT/SN is ordered. Pt stated he no longer needs FWW. Called [facility] to cancel order. Son to transport home. No other needs noted. Millicent Smith, OPERATIONS RESEARCH DIRECTOR MANAGER MARKET
[2021-06-16 10:45] LABS: Bedside Glucose 136 mg/dL (70-110)
[2021-06-16] MEDS: Tuberculin,Purif.prot.deriv. 50 TU/ML Vial 0.1 ML ID (10:55)
[2021-06-16 13:49] VITALS: BP 102/62; PULSE 117; RESP 16; TEMP 36.7; O2SAT 93
[2021-06-16 14:09] LABS: BUN/Creat Ratio 27.2 RATIO (10-20); Creatinine, Serum 0.81 mg/dL (0.70-1.30); EST Glomerular Filtration Rate 98 mL/min (>60); Est Glom Filt Rate - Afr Amer 119 mL/min (>60); Estimated Creatinine Clearance 81.17 ml/min
[2021-06-16 16:01] LABS: Bedside Glucose 148 mg/dL (70-110)
[2021-06-16 17:47] VITALS: BP 102/62; PULSE 117
[2021-06-16 19:09] VITALS: PULSE 117; RESP 117; O2SAT 93
[2021-06-16] MEDS: Atorvastatin Calcium 40 MG Tablet PO (21:00)
[2021-06-16 21:30] LABS: Bedside Glucose 109 mg/dL (70-110)
[2021-06-17 06:26] LABS: Bedside Glucose 150 mg/dL (70-110)
[2021-06-17] MEDS: Polyethylene Glycol 3350 17 GM PACKET PO (06:39)
[2021-06-17] MEDS: Senna/Docusate Sodium 1 Tablet 2 TABLET PO ×2 (06:39→16:27)
[2021-06-17 06:40] VITALS: BP 124/69; PULSE 105
[2021-06-17] MEDS: Metoprolol Tartrate 25 MG Tablet 12.5 MG PO ×2 (06:40→16:28)
[2021-06-17] MEDS: Febuxostat 40 MG TABLET PO (06:40)
[2021-06-17] MEDS: Furosemide 40 MG Tablet PO (06:40)
[2021-06-17] MEDS: Ipratropium Bromide 0.06% NASAL SPRAY 2 SPRAY NASAL ×2 (06:40→16:27)
[2021-06-17] MEDS: Nystatin Powder 15gm Bottle 1 APPLIC TOPICAL ×2 (07:22→16:28)
[2021-06-17] MEDS: Lisinopril 10 MG Tablet PO (07:22)
[2021-06-17] MEDS: Potassium Chloride Oral Tablet 20 MEQ PO (09:41)
[2021-06-17] MEDS: metFORMIN HCl 500 MG Tablet PO ×2 (09:41→16:27)
[2021-06-17 11:10] LABS: Bedside Glucose 154 mg/dL (70-110)
[2021-06-17 13:28] VITALS: BP 144/67; PULSE 118; RESP 18; TEMP 35.8; O2SAT 96
[2021-06-17 16:28] VITALS: PULSE 118
[2021-06-17] MEDS: Atorvastatin Calcium 40 MG Tablet PO (21:59)
[2021-06-17 22:05] LABS: Bedside Glucose 95 mg/dL (70-110)
[2021-06-17 22:21] LABS: Bedside Glucose 128 mg/dL (70-110)
--- NOTE | 2021-06-18 00:54 | NURSING ---
patient refused removal of BLE at HS despite encouragement/education, states I want to leave them on. A&OX3. Able to voice needs. Call light in reach
[2021-06-18 06:24] VITALS: BP 116/71; PULSE 98
[2021-06-18] MEDS: Senna/Docusate Sodium 1 Tablet 2 TABLET PO (06:24)
[2021-06-18] MEDS: Furosemide 40 MG Tablet PO (06:24)
[2021-06-18] MEDS: Polyethylene Glycol 3350 17 GM PACKET PO (06:24)
[2021-06-18] MEDS: Metoprolol Tartrate 25 MG Tablet 12.5 MG PO (06:24)
[2021-06-18] MEDS: Febuxostat 40 MG TABLET PO (06:26)
[2021-06-18] MEDS: Lisinopril 10 MG Tablet PO (06:26)
[2021-06-18] MEDS: Ipratropium Bromide 0.06% NASAL SPRAY 2 SPRAY NASAL (06:29)
[2021-06-18] MEDS: Nystatin Powder 15gm Bottle 1 APPLIC TOPICAL (06:29)
[2021-06-18 06:36] LABS: Bedside Glucose 138 mg/dL (70-110)
--- NOTE | 2021-06-18 06:57 | NURSING ---
Pt. declined removal of ulysses wraps at HS despite education/encouragement. Re-attempt to assess this AM, patient declined assessment of skin under immobilizer, or removal of ulysses wraps for skin assessments, pt. states they just changed them yesterday, they are fine, I'm going home later this morning. Pt. declined discomfort to RLE immobilizer states it feels fine. Denies pain. No distress observed or reported. Call light in reach.
[2021-06-18 07:01] VITALS: PULSE 98; RESP 18; O2SAT 98
[2021-06-18] MEDS: Potassium Chloride Oral Tablet 20 MEQ PO (08:34)
[2021-06-18] MEDS: metFORMIN HCl 500 MG Tablet PO (08:34)
[2021-06-18 10:00] VITALS: TEMP 36.6
--- NOTE | 2021-06-21 09:57 | MDS.RN ---
Information for the mds was obtained from review of the clinical record, interview of resident, staff, and direct observation of resident's care.
== END 2021-06-18 10:18 | disposition home health service (06) | DRG 561 ==
PROVIDERS: Admitting Provider Family Medicine Geriatric Medicine; PCP Family Medicine Geriatric Medicine; Visit Provider Family Medicine Geriatric Medicine
DX: S32.2XXD Fracture of coccyx, subsequent encounter for fracture with routine healing (principal); S82.401D Unspecified fracture of shaft of right fibula, subsequent encounter for closed fracture with routine healing; S32.10XD Unspecified fracture of sacrum, subsequent encounter for fracture with routine healing; T14.8XXD Other injury of unspecified body region, subsequent encounter; I10 Essential (primary) hypertension; E78.5 Hyperlipidemia, unspecified; M10.9 Gout, unspecified; E11.9 Type 2 diabetes mellitus without complications; V03.00XD Pedestrian on foot injured in collision with car, pick-up truck or van in nontraffic accident, subsequent encounter; S36.039D Unspecified laceration of spleen, subsequent encounter; Z86.711 Personal history of pulmonary embolism; Z79.899 Other long term (current) drug therapy; Z79.01 Long term (current) use of anticoagulants; Z79.4 Long term (current) use of insulin; Z87.891 Personal history of nicotine dependence
CPT/HCPCS: 36415; 70450; 71045; 71260; 72125; 72170; 73564; 74177; 80048; 80053; 80076; 82962; 84484; 85025; 85610; 85730; 86850; 86900; 86901; 87635; 90715; 93005; 96361; 96365; 97110; 97116; 97162; 97166; 97530; 97535; 97802; 99285; J7030; Q9967; U0005; A4216; U0003

== ENCOUNTER → 2021-06-21 14:08 | Outpatient (CLI) | payer MEDICARE, SELFPAY ==
[2021-06-21 18:40] LABS: Absolute Lymphocyte Count 1.66 X10^3/uL (0.83-4.51); Absolute Neutrophil Count 6.2 X10^3/uL (2.0-7.7); Basophil# 0.04 X10^3/uL; Basophil% 0.5 % (0-1); Eosinophil# 0.05 X10^3/uL; Eosinophils% 0.6 % (0-5); Hematocrit 37.2 % (40-54); Hemoglobin 11.9 g/dL (13.0-16.5); Lymphocyte # 1.66 X10^3/ul (0.83-4.51); Mean Platelet Vol. 10.2 fl (6.2-12.0); Monocyte# 0.77 X10^3/uL; Monocyte% 8.8 % (0-10); NRBC Flagged by Analyzer 0 % (0-5); Neutrophil # 6.16 X10^3/uL (2.7-7.7); Neutrophil % 70.6 % (47-70); Platelet Count 312 K/mm3 (150-450); RBC Distribution Width CV 16.3 % (11.6-14.6); RBC Distribution Width SD 61.4 fl (35.1-43.9); Red Blood Count 3.61 M/mm3 (4.6-6.2); White Blood Count 8.7 K/mm3 (4.4-11.0)
[2021-06-21 18:51] LABS: Vitamin D,25 Hydroxy 44.9 ng/mL
[2021-06-21 19:02] LABS: ALB/GLOB Ratio 0.7 RATIO (0.9-2.4); AST(SGOT) 17 U/L (15-37); Alanine Aminotransfer ALT/SGPT 27 U/L (16-61); Alkaline Phosphatase 130 U/L (45-117); Anion Gap 5 (5-15); BUN 26 mg/dL (7-18); BUN/Creat Ratio 24.5 RATIO (10-20); Calcium,Total 9.3 mg/dL (8.5-10.1); Chloride 105 mmol/L (98-107); Creatinine, Serum 1.06 mg/dL (0.70-1.30); EST Glomerular Filtration Rate 72 mL/min (>60); Est Glom Filt Rate - Afr Amer 87 mL/min (>60); Globulin 4.4 g/dL (2.2-4.2); Glucose 127 mg/dL (74-106); Potassium 4.7 mmol/L (3.5-5.1); Protein, Total 7.4 g/dL (6.4-8.2); Sodium Level 136 mmol/L (136-145); Thyroid Stim Hormone (TSH) 2.68 uIU/mL (0.358-3.74); Uric Acid 3.1 mg/dL (3.5-7.2)
== END ==
PROVIDERS: PCP Family Medicine Geriatric Medicine; Visit Provider Family Medicine Geriatric Medicine
DX: E11.9 Type 2 diabetes mellitus without complications (principal); I10 Essential (primary) hypertension; E55.9 Vitamin D deficiency, unspecified; M10.9 Gout, unspecified
CPT/HCPCS: 36415; 80053; 82306; 84443; 84550; 85025

== ENCOUNTER 2021-07-08 14:30 | Outpatient (RCR) | payer MEDICARE, SELFPAY ==
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
[2021-07-01 14:11] VITALS: BP 126/88; PULSE 118; RESP 22; TEMP 36.9
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
[2021-07-08 14:35] VITALS: BP 143/86; PULSE 117; RESP 16; TEMP 35.8
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
== END 2021-07-09 23:59 ==
LOC: WC 14:30
PROVIDERS: PCP Family Medicine Geriatric Medicine; Visit Provider Nurse Practitioner Family
DX: I83.018 Varicose veins of right lower extremity with ulcer other part of lower leg (principal); L97.812 Non-pressure chronic ulcer of other part of right lower leg with fat layer exposed; E11.622 Type 2 diabetes mellitus with other skin ulcer; I89.0 Lymphedema, not elsewhere classified; E11.40 Type 2 diabetes mellitus with diabetic neuropathy, unspecified; V03.00XD Pedestrian on foot injured in collision with car, pick-up truck or van in nontraffic accident, subsequent encounter; I10 Essential (primary) hypertension; E78.5 Hyperlipidemia, unspecified; R53.81 Other malaise; E72.12 Methylenetetrahydrofolate reductase deficiency; Z79.01 Long term (current) use of anticoagulants; Z79.4 Long term (current) use of insulin; Z86.711 Personal history of pulmonary embolism; Z87.891 Personal history of nicotine dependence
CPT/HCPCS: 11042; 11045; 29580; 99203; G0463

== ENCOUNTER 2021-09-20 12:57 | Outpatient (CLI) | payer MEDICARE, SELFPAY ==
[2021-09-20 17:07] LABS: Absolute Neutrophil Count 2.8 X10^3/uL (2.0-7.7); Basophil# 0.03 X10^3/uL; Basophil% 0.6 % (0-1); Eosinophil# 0.09 X10^3/uL; Eosinophils% 1.8 % (0-5); Hematocrit 47.1 % (40-54); Lymphocyte % 31.4 % (19-41); Mean Corp Hgb Conc 31.8 g/dL (32-36); Mean Corpuscular Hgb 31.9 pg (27.0-32.0); Mean Corpuscular Volume 100.2 fL (80-94); Mean Platelet Vol. 11.3 fl (6.2-12.0); Monocyte% 9.8 % (0-10); NRBC Flagged by Analyzer 0 % (0-5); Neutrophil # 2.83 X10^3/uL (2.7-7.7); Neutrophil % 55.6 % (47-70); Platelet Count 164 K/mm3 (150-450); RBC Distribution Width SD 52.2 fl (35.1-43.9); White Blood Count 5.1 K/mm3 (4.4-11.0)
[2021-09-20 17:17] LABS: Vitamin D,25 Hydroxy 35.2 ng/mL
[2021-09-20 17:35] LABS: AST(SGOT) 14 U/L (15-37); Alanine Aminotransfer ALT/SGPT 23 U/L (16-61); Albumin, Serum 3.7 g/dL (3.2-5.0); Alkaline Phosphatase 72 U/L (45-117); Anion Gap 5 (5-15); BUN 14 mg/dL (7-18); BUN/Creat Ratio 15.3 RATIO (10-20); Calcium,Total 9.2 mg/dL (8.5-10.1); Chloride 106 mmol/L (98-107); Creatinine, Serum 0.92 mg/dL (0.70-1.30); EST Glomerular Filtration Rate 85 mL/min (>60); Est Glom Filt Rate - Afr Amer 102 mL/min (>60); Globulin 3.7 g/dL (2.2-4.2); Glucose 127 mg/dL (74-106); Potassium 4.2 mmol/L (3.5-5.1); Protein, Total 7.4 g/dL (6.4-8.2); Sodium Level 139 mmol/L (136-145); Uric Acid 2.7 mg/dL (3.5-7.2)
== END 2021-09-20 23:59 | disposition home or self-care (01) ==
LOC: POLAB3 12:57
PROVIDERS: PCP Family Medicine Geriatric Medicine; Visit Provider Family Medicine Geriatric Medicine
DX: I10 Essential (primary) hypertension (principal); E11.9 Type 2 diabetes mellitus without complications; E55.9 Vitamin D deficiency, unspecified; M10.9 Gout, unspecified
CPT/HCPCS: 36415; 80053; 82306; 84443; 84550; 85025

== ENCOUNTER → 2021-12-20 | Outpatient (CLI) | payer MEDICARE, SELFPAY ==
[2021-12-20 16:33] LABS: Basophil# 0.03 X10^3/uL; Basophil% 0.6 % (0-1); Eosinophils% 1.9 % (0-5); Hematocrit 46.5 % (40-54); Hemoglobin 15.5 g/dL (13.0-16.5); Lymphocyte % 30.2 % (19-41); Mean Corp Hgb Conc 33.3 g/dL (32-36); Mean Corpuscular Volume 98.9 fL (80-94); Mean Platelet Vol. 11.2 fl (6.2-12.0); Monocyte# 0.56 X10^3/uL; Monocyte% 10.6 % (0-10); NRBC Flagged by Analyzer 0 % (0-5); Neutrophil # 2.97 X10^3/uL (2.7-7.7); Neutrophil % 56.1 % (47-70); Platelet Count 163 K/mm3 (150-450); RBC Distribution Width CV 13.4 % (11.6-14.6); RBC Distribution Width SD 49.1 fl (35.1-43.9); White Blood Count 5.3 K/mm3 (4.4-11.0)
[2021-12-20 16:54] LABS: Vitamin D,25 Hydroxy 39.8 ng/mL
[2021-12-20 17:13] LABS: ALB/GLOB Ratio 1.1 RATIO (0.9-2.4); AST(SGOT) 18 U/L (15-37); Alanine Aminotransfer ALT/SGPT 26 U/L (16-61); Albumin, Serum 3.8 g/dL (3.2-5.0); Alkaline Phosphatase 63 U/L (45-117); Anion Gap 9 (5-15); BUN 20 mg/dL (7-18); BUN/Creat Ratio 21.5 RATIO (10-20); Calcium,Total 9.4 mg/dL (8.5-10.1); Chloride 107 mmol/L (98-107); Creatinine, Serum 0.93 mg/dL (0.70-1.30); EST Glomerular Filtration Rate 83 mL/min (>60); Est Glom Filt Rate - Afr Amer 101 mL/min (>60); Globulin 3.6 g/dL (2.2-4.2); Glucose 105 mg/dL (74-106); Potassium 4.2 mmol/L (3.5-5.1); Protein, Total 7.4 g/dL (6.4-8.2); Sodium Level 139 mmol/L (136-145); Thyroid Stim Hormone (TSH) 1.88 uIU/mL (0.358-3.74)
--- OUTSIDE RECORDS SUMMARY | 2022-03-18 09:27 | XMS RPT_ITS ---
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 Family History Family Member Problem Brother () Diabetes mellitus type II Mother () Stroke Social History History Type Description Problem Smoking status: Never smoker ([id number]) Alerts Description Alert Type Status Start Date House Dust Allergy Active 2012-08-22 Medications Product metformin 500 mg tablet metformin 500 mg tablet Prinivil 10 Mg Tablet Msd METFORMIN HCL 500 MG TABLET lisinopril 10 mg tablet METFORMIN HCL 500 MG TABLET ULORIC 40 MG TABLET LISINOPRIL 10 MG TABLET Eliquis 5 mg tablet ATORVASTATIN CALCIUM 40 MG TABLET METFORMIN HCL 500 MG TABLET ULORIC 40 MG TABLET LISINOPRIL 10 MG TABLET LISINOPRIL 10 MG TABLET LISINOPRIL 10 MG TABLET POTASSIUM CHLORIDE 20 MEQ TABLET ER LISINOPRIL 10 MG TABLET ELIQUIS 5 MG TABLET FUROSEMIDE 80 MG TABLET LISINOPRIL 10 MG TABLET ELIQUIS 5 MG TABLET ATORVASTATIN CALCIUM 40 MG TABLET ULORIC 40 MG TABLET METFORMIN HCL 1000 MG TABLET ELIQUIS 5 MG TABLET LISINOPRIL 10 MG TABLET ATORVASTATIN CALCIUM 40 MG TABLET ULORIC 40 MG TABLET METFORMIN HCL 1000 MG TABLET STEGLATRO 15 MG TABLET lisinopril 10 mg tablet Eliquis 5 mg tablet atorvastatin 40 mg tablet febuxostat 40 mg tablet metformin 1,000 mg tablet Steglatro 15 mg tablet lisinopril 10 mg tablet Eliquis 5 mg tablet METFORMIN HCL 1000 MG TABLET Steglatro 15 mg tablet cholecalciferol (vitamin D3) 25 mcg (1,0 00 unit) capsule febuxostat 40 mg tablet atorvastatin 40 mg tablet Soliqua 100/33 100 unit-33 mcg/mL subcut aneous insulin pen lisinopril 10 mg tablet promethazine 25 mg tablet metoclopramide 10 mg tablet metformin 500 mg tablet Colcrys 0.6 mg tablet lisinopril 10 mg tablet prednisone 10 mg tablet indomethacin 50 mg capsule Colcrys 0.6 mg tablet lisinopril 10 mg tablet allopurinol 300 mg tablet prednisone 10 mg tablet Colcrys 0.6 mg tablet diclofenac sodium 50 mg tablet,delayed r elease metformin 500 mg tablet atorvastatin 40 mg tablet omeprazole 40 mg capsule,delayed release Eliquis 5 mg tablet prednisone 10 mg tablet diclofenac sodium 50 mg tablet,delayed r elease Colcrys 0.6 mg tablet Uloric 40 mg tablet Lasix 20 mg tablet prednisone 10 mg tablet naproxen 500 mg tablet baclofen 10 mg tablet atorvastatin 40 mg tablet metformin 500 mg tablet doxycycline monohydrate 100 mg capsule prednisone 10 mg tablet codeine 10 mg-guaifenesin 100 mg/5 mL or al liquid metformin 1,000 mg tablet Tradjenta 5 mg tablet clobetasol 0.05 % topical cream doxycycline monohydrate 100 mg tablet clindamycin 300 mg capsule metformin 1,000 mg 24 hr tablet,extended release Lasix 40 mg tablet potassium chloride 20 mEq tablet,extende d release doxycycline monohydrate 100 mg tablet Bactrim DS 800 mg-160 mg tablet furosemide 80 mg tablet potassium chloride 20 mEq tablet,extende d release Levaquin 500 mg tablet metolazone 2.5 mg tablet Invokana 300 mg tablet Steglatro 15 mg tablet Keflex 500 mg capsule baclofen 10 mg tablet diclofenac sodium 50 mg tablet,delayed r elease Shingrix (PF) 50 mcg/0.5 mL intramuscula r suspension, kit Vascepa 1 gram capsule Vascepa 1 gram capsule Keflex 500 mg capsule DuoDERM CGF Adhesive Border Dressing 4 X 4 Soliqua 100/33 100 unit-33 mcg/mL subcut aneous insulin pen Keflex 500 mg capsule doxycycline hyclate 100 mg tablet furosemide 40 mg tablet potassium chloride 20 mEq tablet,extende d release citalopram 10 mg tablet lisinopril 10 mg tablet atorvastatin 40 mg tablet Eliquis 5 mg tablet febuxostat 40 mg tablet BD Ultra-Fine Short Pen Needle 31 gauge x 5/16 Blood Glucose Monitoring kit Blood Glucose Test strips lancing device with lancets lancets 33 gauge Farxiga 10 mg tablet Steglatro 15 mg tablet metformin 1,000 mg tablet Immunizations Product Pneumococcal (PCV 13) Influenza,split virus,(3yrs>) intramuscu lar use (Fluzone) Influenza,split virus,(3yrs>) intramuscu lar use (Fluzone) Adacel Influenza, seasonal, injectable Quad Flu Vaccine Quad Flu Vaccine Quad Flu Vaccine zoster/ shingrix COVID-19, mRNA, LNP-S, PF, 100 mcg or 50 mcg dose Vital Signs Type Description Test Result Test Date Vital Signs Vital Signs 2012-08-22 Pulse: 70 /min (Active) B P: 132/62 2012-08-22 mm[Hg] (Active) Temp: 98.4 F (Active ) Height: 73 in (Activ e) Weight: 249 lb (Acti ve) BMI: 32.85 (Active) Vital Signs Vital Signs 2012-09-21 Pulse: 71 /min (Active) B P: 122/84 2012-09-21 mm[Hg] (Active) Height: 73 in (Activ e) Weight: 251 lb (Acti ve) BMI: 33.12 (Active) Vital Signs Vital Signs 2013-01-24 Pulse: 72 /min (Active) B P: 162/80 2013-01-24 mm[Hg] (Active) Weight: 252 lb (Active) Vital Signs Vital Signs 2013-01-25 Pulse: 64 /min (Active) B P: 110/60 2013-01-25 mm[Hg] (Active) Height: 73 in (Activ e) Weight: 252 lb (Acti ve) BMI: 33.25 (Active) Vital Signs Vital Signs 2013-03-06 Pulse: 66 /min (Active) B P: 102/72 2013-03-06 mm[Hg] (Active) Height: 73 in (Activ e) Weight: 245 lb (Acti ve) BMI: 32.32 (Active) Vital Signs Vital Signs 2013-08-22 Pulse: 72 /min (Active) B P: 142/72 2013-08-22 mm[Hg] (Active) Height: 73 in (Activ e) Weight: 255 lb (Acti ve) BMI: 33.64 (Active) Vital Signs Vital Signs 2014-02-07 Pulse: 86 /min (Active) B P: 130/69 2014-02-07 mm[Hg] (Active) Height: 73 in (Activ e) Weight: 244 lb (Acti ve) BMI: 32.19 (Active) Vital Signs Vital Signs 2014-02-27 Pulse: 74 /min (Active) B P: 144/52 2014-02-27 mm[Hg] (Active) Height: 73 in (Activ e) Weight: 240 lb (Acti ve) BMI: 31.66 (Active) Vital Signs Vital Signs 2014-05-21 Pulse: 95 /min (Active) B P: 140/68 2014-05-21 mm[Hg] (Active) Height: 73 in (Activ e) Weight: 243 lb (Acti ve) BMI: 32.08 (Active) Vital Signs Vital Signs 2014-05-22 Pulse: 86 /min (Active) B P: 150/68 2014-05-22 mm[Hg] (Active) Height: 73 in (Activ e) Weight: 243 lb (Acti ve) BMI: 32.06 (Active) Vital Signs Vital Signs 2014-09-03 Pulse: 69 /min (Active) B P: 140/70 2014-09-03 mm[Hg] (Active) Temp: 96.3 F (Active ) Height: 73 in (Activ e) Weight: 247 lb (Acti ve) BMI: 32.59 (Active) Vital Signs Vital Signs 2014-09-12 Pulse: 70 /min (Active) B P: 132/70 2014-09-12 mm[Hg] (Active) Height: 73 in (Activ e) Weight: 251 lb (Acti ve) BMI: 33.12 (Active) Vital Signs Vital Signs 2014-11-28 Pulse: 66 /min (Active) B P: 142/72 2014-11-28 mm[Hg] (Active) Height: 73 in (Activ e) Weight: 245 lb (Acti ve) BMI: 32.39 (Active) Vital Signs Vital Signs 2015-03-05 Pulse: 66 /min (Active) B P: 122/72 2015-03-05 mm[Hg] (Active) Height: 73 in (Activ e) Weight: 250 lb (Acti ve) BMI: 33 (Active) Vital Signs Vital Signs 2015-07-06 Pulse: 68 /min (Active) B P: 142/62 2015-07-06 mm[Hg] (Active) Height: 73 in (Activ e) Weight: 254 lb (Acti ve) BMI: 33.57 (Active) Vital Signs Vital Signs 2015-08-17 Pulse: 64 /min (Active) B P: 146/84 2015-08-17 mm[Hg] (Active) Height: 73 in (Activ e) Weight: 258 lb (Acti ve) BMI: 34.04 (Active) Vital Signs Vital Signs 2015-09-04 Pulse: 68 /min (Active) B P: 128/62 2015-09-04 mm[Hg] (Active) Height: 73 in (Activ e) Weight: 246 lb (Acti ve) BMI: 32.47 (Active) Vital Signs Vital Signs 2016-03-08 Pulse: 64 /min (Active) B P: 130/76 2016-03-08 mm[Hg] (Active) Height: 73 in (Activ e) Weight: 257 lb (Acti ve) BMI: 33.95 (Active) Vital Signs Vital Signs 2016-06-09 Pulse: 76 /min (Active) B P: 132/68 2016-06-09 mm[Hg] (Active) Height: 73 in (Activ e) Weight: 265 lb (Acti ve) BMI: 34.98 (Active) Vital Signs Vital Signs 2016-06-10 Pulse: 108 /min (Active) BP: 124/62 2016-06-10 mm[Hg] (Active) Height: 73 in (Activ e) Weight: 265 lb (Acti ve) BMI: 35.01 (Active) Vital Signs Vital Signs 2016-07-26 Pulse: 125 /min (Active) BP: 118/62 2016-07-26 mm[Hg] (Active) Temp: 98.5 F (Active ) Height: 73 in (Activ e) Weight: 246 lb (Acti ve) BMI: 32.52 (Active) Vital Signs Vital Signs 2016-09-05 Pulse: 67 /min (Active) B P: 122/80 2016-09-05 mm[Hg] (Active) Height: 73 in (Activ e) Weight: 241 lb (Acti ve) BMI: 31.79 (Active) Vital Signs Vital Signs 2016-12-01 Pulse: 92 /min (Active) B P: 136/78 2016-12-01 mm[Hg] (Active) Height: 73 in (Activ e) Weight: 249 lb (Acti ve) BMI: 32.85 (Active) Vital Signs Vital Signs 2017-03-07 Pulse: 78 /min (Active) B P: 126/78 2017-03-07 mm[Hg] (Active) Height: 73 in (Activ e) Weight: 256 lb (Acti ve) BMI: 33.82 (Active) Vital Signs Vital Signs 2017-05-24 Pulse: 83 /min (Active) B P: 126/80 2017-05-24 mm[Hg] (Active) Height: 73 in (Activ e) Weight: 263 lb (Acti ve) BMI: 34.73 (Active) Vital Signs Vital Signs 2017-05-25 Pulse: 81 /min (Active) B P: 136/72 2017-05-25 mm[Hg] (Active) Height: 73 in (Activ e) Weight: 263 lb (Acti ve) BMI: 34.69 (Active) Vital Signs Vital Signs 2017-06-08 Pulse: 91 /min (Active) B P: 124/62 2017-06-08 mm[Hg] (Active) Height: 73 in (Activ e) Weight: 251 lb (Acti ve) BMI: 33.11 (Active) Vital Signs Vital Signs 2017-06-21 Pulse: 66 /min (Active) B P: 120/78 2017-06-21 mm[Hg] (Active) Height: 73 in (Activ e) Weight: 254 lb (Acti ve) BMI: 33.52 (Active) Vital Signs Vital Signs 2017-07-11 Pulse: 68 /min (Active) B P: 140/78 2017-07-11 mm[Hg] (Active) Height: 73 in (Activ e) Weight: 254 lb (Acti ve) BMI: 33.51 (Active) Vital Signs Vital Signs 2017-07-14 Pulse: 112 /min (Active) BP: 148/82 2017-07-14 mm[Hg] (Active) Height: 73 in (Activ e) Weight: 247 lb (Acti ve) BMI: 32.61 (Active) Vital Signs Vital Signs 2017-07-26 Pulse: 61 /min (Active) B P: 163/94 2017-07-26 mm[Hg] (Active) Height: 73 in (Activ e) Weight: 247 lb (Acti ve) BMI: 32.58 (Active) Vital Signs Vital Signs 2017-08-02 Pulse: 107 /min (Active) BP: 142/62 2017-08-02 mm[Hg] (Active) Height: 73 in (Activ e) Weight: 242 lb (Acti ve) BMI: 31.96 (Active) Vital Signs Vital Signs 2017-09-07 Pulse: 94 /min (Active) B P: 110/62 2017-09-07 mm[Hg] (Active) Height: 73 in (Activ e) Weight: 255 lb (Acti ve) BMI: 33.64 (Active) Vital Signs Vital Signs 2018-02-27 Pulse: 119 /min (Active) BP: 130/72 2018-02-27 mm[Hg] (Active) Height: 73 in (Activ e) Weight: 260 lb (Acti ve) BMI: 34.35 (Active) Vital Signs Vital Signs 2018-05-28 Pulse: 95 /min (Active) B P: 120/74 2018-05-28 mm[Hg] (Active) Height: 73 in (Activ e) Weight: 255 lb (Acti ve) BMI: 33.64 (Active) Vital Signs Vital Signs 2018-08-14 Pulse: 98 /min (Active) B P: 142/82 2018-08-14 mm[Hg] (Active) Height: 73 in (Active) Vital Signs Vital Signs 2018-08-15 Pulse: 118 /min (Active) BP: 122/60 2018-08-15 mm[Hg] (Active) Height: 73 in (Activ e) Weight: 249 lb (Acti ve) BMI: 32.9 (Active) Vital Signs Vital Signs 2018-09-10 Pulse: 121 /min (Active) BP: 136/72 2018-09-10 mm[Hg] (Active) Height: 73 in (Activ e) Weight: 239 lb (Acti ve) BMI: 31.58 (Active) Vital Signs Vital Signs 2019-03-14 Pulse: 46 /min (Active) B P: 120/72 2019-03-14 mm[Hg] (Active) Height: 73 in (Activ e) Weight: 240 lb (Acti ve) BMI: 31.73 (Active) Vital Signs Vital Signs 2019-09-12 Pulse: 118 /min (Active) BP: 118/70 2019-09-12 mm[Hg] (Active) Height: 73 in (Activ e) Weight: 240 lb (Acti ve) BMI: 31.66 (Active) Vital Signs Vital Signs 2020-03-12 Pulse: 116 /min (Active) BP: 120/74 2020-03-12 mm[Hg] (Active) Height: 73 in (Activ e) Weight: 246 lb (Acti ve) BMI: 32.49 (Active) Vital Signs Vital Signs 2020-09-14 Pulse: 100 /min (Active) BP: 140/72 2020-09-14 mm[Hg] (Active) Height: 73 in (Activ e) Weight: 252 lb (Acti ve) BMI: 33.24 (Active) Vital Signs Vital Signs 2020-12-04 Pulse: 112 /min (Active) BP: 118/78 2020-12-04 mm[Hg] (Active) Height: 73 in (Activ e) Weight: 243 lb (Acti ve) BMI: 32.09 (Active) Vital Signs Vital Signs 2020-12-21 Pulse: 117 /min (Active) BP: 112/70 2020-12-21 mm[Hg] (Active) Height: 73 in (Activ e) Weight: 239 lb (Acti ve) BMI: 31.53 (Active) Vital Signs Vital Signs 2020-12-29 Pulse: 109 /min (Active) BP: 136/70 2020-12-29 mm[Hg] (Active) Height: 73 in (Activ e) Weight: 246 lb (Acti ve) BMI: 32.45 (Active) Vital Signs Vital Signs 2021-03-23 Pulse: 92 /min (Active) B P: 128/72 2021-03-23 mm[Hg] (Active) Height: 73 in (Activ e) Weight: 243 lb (Acti ve) BMI: 32.12 (Active) Vital Signs Vital Signs 2021-06-21 Pulse: 118 /min (Active) BP: 108/76 2021-06-21 mm[Hg] (Active) Height: 73 in (Active) Results Type Description Test Result Normal Range Test Date Procedure In-House: A1C Glycated hemoglobin 5.5-6.5 2014-02 test: 6.3 (S) Procedure In-House: Lipid panel HDL Cholesterol: 34 (S) 0-130mg /dL 2014-02-27 [Below Low Normal]Total Serum Cholesterol: 119 (S) [Below Low Thi l] Triglycerides: 109 (S) [Below Low Normal] LDL Cholesterol: 64 (S) Procedure In-House: CBC WBC: 4.7 (S) RBC: 4.59 19-41% 201 10-15-20 (S) Hemoglobin(HGB): 16.0 (S) Hematocrit(HCT): 43.1 (S) MCV: 93.8 (S) MCH: 34.9 (S) [Above High Normal] MCHC: 37.1 (S) [Above High Normal] Platelets(PLT): 145 (S) [Below Low Normal] Lymphocytes: 22.6 (S) Procedure In-House: TSH Assay thyroid stim .358-3.74ml hormone (TSH): 1.5 (S) Procedure In-House: URIC ACID Assay of blood/uric 2.2-8.0mg/dL 2 acid: 6.3 (S) Procedure In-House: CMP Assay of serum albumin: 7.9-20.2 201 10-15-20 3.8 (S) Bilirubin, total: 0.9 (S) Assay of calcium: 9.5 (S) Assay, blood carbon dioxide(CO2): 44 (S) [Above High Normal] Assay of blood chloride: 104 (S) Assay of creatinine: 1.12 (S) Assay of glucose, quant: 165 (S) [Above High Normal] Assay alkaline phosphatase(Alk phos): 58 (S) Assay of serum potassium: 4.7 (S) Assay of protein (total): 6.5 (S) Assay of serum sodium: 136 (S) Assay of urea nitrogen(BUN): 18.8 (S) Procedure In-House: CBC WBC: 4.8 (S) RBC: 4.25 19-41% 201 10-18-12 (S) Hemoglobin(HGB): 15.0 (S) Hematocrit(HCT): 40.0 (S) MCV: 94.1 (S) MCH: 35.3 (S) [Above High Normal] MCHC: 37.5 (S) [Above High Normal] Platelets(PLT): 184 (S) Lymphocytes: 30.4 (S) Procedure In-House: URIC ACID Assay of blood/uric 2.2-8.0mg/dL 2 acid: 5.4 (S) Procedure In-House: CRP C-Reactive protein; high 20 -13 sensitivity (hscrp): 15.5 (S) [Above High Normal] Procedure In-House: D-DIMER D-Dimer: [facility]/LAB (S) 100-400 2 Procedure In-House: CMP Assay of serum albumin: 7.9-20.2 201 10-18-12 4.5 (S) Bilirubin, total: 1.0 (S) Assay of calcium: 9.5 (S) Assay, blood carbon dioxide(CO2): 27 (S ) Assay of blood chloride: 103 (S) Assay of creatinine: 0.95 (S) Assay of glucose, quant: 118 (S) [Above High Normal] Assay alkaline phosphatase(Alk phos): 70 (S) Assay of serum potassium: 4.1 (S) Assay of protein (total): 6.9 (S) Assay of serum sodium: 139 (S) Transferase (AST) (sgot): 15 (S) Alanine amino (ALT) (sgpt): 15 (S) Assay of urea nitrogen(BUN): 14.2 (S) Procedure D-Dimer Quantitative D-DIMER QUANT: 0.69 2014-05-21 (DVT/PE) (Final) [Panic High]Performing Lab:: see note (Final) Procedure CBC W/Diff, Automated WBC: 4.9 (Final) RBC: 2014-09-03 4.88 (Final) HGB: 15.9 (Final) HCT: 47.5 (Final) MCV: 97.3 (Final) [Alert High] MCH: 32.6 (Final) [Alert High] MCHC: 33.5 (Final) RDW CV: 14.0 (Final ) RDW SD: 48.3 (Final) [Alert High] PLT: 129 (Final) [Alert Low] MPV: 11.2 (Final) NEUT%: 60.9 (Final) LY%: 27.2 (Final) MONO%: 9.1 (Final) EO%: 2.0 (Final) BASO%: 0.6 (Final) IM GRAN %: 0.200 (Final) Absolute Neut: 3.0 (Final) Absolute Lymph: 1.34 (Final) Performing Lab:: see note (Final) Procedure Comprehensive Metabolic GLU: 154 (Final) [Alert 5-15 2014-09-03 Profil High]BUN: 14 (Final ) CREAT,SERUM: 1.1 (Final) BUN/CRE: 12.7 (Randa l) T PROT: 7.5 (Final) ALB: 3.9 (Final) GLOB: 3.6 (Final) A/.1 (Final) CA: 9.1 (Final) AST: 16 (Final) ALK P: 64 (Final) ALT: 26 (Final) T BILI: 0.90 (Final ) NA: 137 (Final) K: 4.3 (Final) CL: 103 (Final) CO2: 27.0 (Final) GAP: 7 (Final) Procedure Uric Acid URIC: 5.4 (Final) 3.5-7.2 2014-08-11 5 Procedure Thyroid Stim Hormone (TSH) TSH: 1.62 (Final) 2014-09-03 Performing Lab:: see note (Final) Procedure In-House: A1C Glycated hemoglobin 5.5-6.5 2014-08 test: 6.0% (Final) [Normal] Procedure In-House: Lipid panel HDL Cholesterol: 54 0-130mg/dL 2014-09-03 (Final) [Normal]Total Serum Cholesterol: 149 (Final) [Below Low Normal] Triglycerides: 145 (Final) [Below Low Normal] LDL Cholesterol: 65 (Final) [Normal] Procedure In-House: Urine, Microalbumin, semiquant: 2014-09-03 microalbumin <30mg (Final) [Normal] Procedure Miscellaneous Lab MISC LAB TEST: see note 2014-09-12 Procedure (Final) Performing Lab:: see note (Final) Procedure Basic Metabolic Profile GLU: 118 (Final) [Above 5-15 2014-11-28 (BMP) High Normal]BUN: 15 (Final) CREAT,SERUM: 1.0 (Final) BUN/CRE: 15.0 (Randa l) CA: 9.3 (Final) NA: 136 (Final) K: 4.3 (Final) CL: 102 (Final) CO2: 29.0 (Final) GAP: 5 (Final) Procedure Uric Acid URIC: 3.9 (Final) 2014-11-08 2 Performing Lab:: see note (Final) Procedure CBC W/Diff, Automated WBC: 5.6 (Final) RBC: 2015-03-05 4.35 (Final) [Below Low Normal] HGB: 14.2 (Final) HCT: 43.1 (Final) MCV: 99.1 (Final) [Above High Normal] MCH: 32.6 (Final) [Above High Normal] MCHC: 32.9 (Final) RDW CV: 14.0 (Final ) RDW SD: 50.9 (Final) [Above High Normal] PLT: 141 (Final) [Below Low Normal] MPV: 11.2 (Final) NEUT%: 60.3 (Final) LY%: 28.7 (Final) MONO%: 7.7 (Final) EO%: 2.5 (Final) BASO%: 0.4 (Final) IM GRAN %: 0.400 (Final) Absolute Neut: 3.4 (Final) Absolute Lymph: 1.60 (Final) Performing Lab:: see note (Final) Procedure Comprehensive Metabolic GLU: 129 (Final) [Above 11-212015-03-05 Profil High Normal]BUN: 13 (Final) CREAT,SERUM: 0.99 (Final) BUN/CRE: 13.1 (Randa l) T PROT: 7.0 (Final) ALB: 3.6 (Final) GLOB: 3.4 (Final) A/.1 (Final) CA: 8.9 (Final) AST: 26 (Final) ALK P: 59 (Final) ALT: 24 (Final) T BILI: 0.40 (Final ) NA: 139 (Final) K: 4.1 (Final) CL: 106 (Final) CO2: 29.0 (Final) GAP: 4 (Final) [Below Low Normal] Procedure Uric Acid URIC: 3.9 (Final) 3.5-7.2 2015-02-08 7 Procedure Thyroid Stim Hormone (TSH) TSH: 1.77 (Final) 2015-03-05 Performing Lab:: see note (Final) Procedure In-House: A1C Glycated hemoglobin 5.5-6.5 2015-02 test: 6.6 (Final) Procedure In-House: Lipid panel HDL Cholesterol: 34 0-130 2015-04-05 (Final) Total Serum Cholesterol: <100 (Final) Triglycerides: 99 (Final) LDL Cholesterol: N/A (Final) Procedure Basic Metabolic Profile GLU: 233 (Final) [Above 11-212015-07-06 (BMP) High Normal]BUN: 14 (Final) CREAT,SERUM: 1.24 (Final) EST GFR: 61 (Final) EST GFR - AA: 73 (Final) BUN/CRE: 11.3 (Randa l) CA: 8.6 (Final) NA: 141 (Final) K: 4.0 (Final) CL: 105 (Final) CO2: 28.0 (Final) GAP: 8 (Final) Procedure Uric Acid URIC: 4.2 (Final) 2015-06-10 8 Performing Lab:: see note (Final) Procedure CBC W/Diff, Automated WBC: 5.7 (Final) RBC: 2015-07-06 4.72 (Final) HGB: 15.2 (Final) HCT: 46.4 (Final) MCV: 98.3 (Final) [Above High Normal] MCH: 32.2 (Final) [Above High Normal] MCHC: 32.8 (Final) RDW CV: 14.0 (Final ) RDW SD: 50.4 (Final) [Above High Normal] PLT: 123 (Final) [Below Low Normal] MPV: 11.6 (Final) NEUT%: 62.9 (Final) LY%: 27.9 (Final) MONO%: 6.5 (Final) EO%: 2.1 (Final) BASO%: 0.4 (Final) IM GRAN %: 0.200 (Final) Absolute Neut: 3.6 (Final) Absolute Lymph: 1.59 (Final) Performing Lab:: see note (Final) Procedure CBC W/Diff, Automated WBC: 7.6 (Final) RBC: 2015-09-04 5.01 (Final) HGB: 16.5 (Final) HCT: 49.0 (Final) MCV: 97.8 (Final) [Above High Normal] MCH: 32.9 (Final) [Above High Normal] MCHC: 33.7 (Final) RDW CV: 13.6 (Final ) RDW SD: 48.2 (Final) [Above High Normal] PLT: 159 (Final) MPV: 11.7 (Final) NEUT%: 64.5 (Final) LY%: 25.3 (Final) MONO%: 7.7 (Final) EO%: 2.1 (Final) BASO%: 0.1 (Final) IM GRAN %: 0.300 (Final) Absolute Neut: 4.9 (Final) Absolute Lymph: 1.93 (Final) Performing Lab:: see note (Final) Procedure Comprehensive Metabolic GLU: 116 (Final) [Above 5-15 2015-09-04 Profil High Normal]BUN: 17 (Final) CREAT,SERUM: 1.09 (Final) EST GFR: 70 (Final) EST GFR - AA: 85 (Final) BUN/CRE: 15.6 (Randa l) T PROT: 8.0 (Final) ALB: 4.1 (Final) GLOB: 3.9 (Final) [Above High Normal] A/.1 (Final) CA: 9.3 (Final) AST: 13 (Final) [Below Low Normal] ALK P: 74 (Final) ALT: 34 (Final) T BILI: 0.90 (Final ) NA: 138 (Final) K: 4.6 (Final) CL: 103 (Final) CO2: 31.0 (Final) GAP: 4 (Final) [Below Low Normal] Procedure Uric Acid URIC: 2.7 (Final) 3.5-7.2 2015-08-11 6 [Below Low Normal] Procedure Thyroid Stim Hormone (TSH) TSH: 2.28 (Final) 2015-09-04 Performing Lab:: see note (Final) Procedure In-House: Urine, Microalbumin, semiquant: 2015-09-04 microalbumin 30-300mg/g (Final) [Abnormal] Procedure In-House: A1C Glycated hemoglobin 5.5-6.5 2015-08 test: 7.4 (Final) Procedure In-House: Lipid panel HDL Cholesterol: 32 0-130mg/dL 2015-09-04 (Final) Total Serum Cholesterol: 104 (Final) Triglycerides: 122 (Final) LDL Cholesterol: 47 (Final) Procedure CBC W/Diff, Automated WBC: 5.3 (Final) RBC: 2016-03-08 4.50 (Final) [Below Low Normal] HGB: 14.6 (Final) HCT: 44.0 (Final) MCV: 97.8 (Final) [Above High Normal] MCH: 32.4 (Final) [Above High Normal] MCHC: 33.2 (Final) RDW CV: 13.4 (Final ) RDW SD: 47.8 (Final) [Above High Normal] PLT: 126 (Final) [Below Low Normal] MPV: 11.1 (Final) NEUT%: 54.4 (Final) LY%: 34.7 (Final) MONO%: 7.6 (Final) EO%: 2.7 (Final) BASO%: 0.4 (Final) IM GRAN %: 0.200 (Final) Absolute Neut: 2.9 (Final) Absolute Lymph: 1.83 (Final) Performing Lab:: see note (Final) Procedure Comprehensive Metabolic GLU: 139 (Final) [Above 5-15 2016-03-08 Profil High Normal]BUN: 18 (Final) CREAT,SERUM: 1.23 (Final) EST GFR: 61 (Final) EST GFR - AA: 74 (Final) BUN/CRE: 14.6 (Randa l) T PROT: 7.0 (Final) ALB: 3.5 (Final) GLOB: 3.5 (Final) A/.0 (Final) CA: 8.8 (Final) AST: 14 (Final) [Below Low Normal] ALK P: 55 (Final) ALT: 25 (Final) T BILI: 0.70 (Final ) NA: 140 (Final) K: 4.2 (Final) CL: 106 (Final) CO2: 30.0 (Final) GAP: 4 (Final) [Below Low Normal] Procedure Uric Acid URIC: 3.9 (Final) 3.5-7.2 2016-02-10 0 Procedure Thyroid Stim Hormone (TSH) TSH: 1.86 (Final) 2016-03-08 Performing Lab:: see note (Final) Procedure In-House: A1C Glycated hemoglobin 5.5-6.5 2016-02 test: 6.9 (Final) Procedure In-House: Lipid panel HDL Cholesterol: 25 0-130mg/dL 2016-03-08 (Final) Total Serum Cholesterol: <100 (Final) Triglycerides: 182 (Final) LDL Cholesterol: NA (Final) Procedure CBC W/Diff, Automated WBC: 4.9 (Final) RBC: 2016-06-09 4.64 (Final) HGB: 15.0 (Final) HCT: 44.9 (Final) MCV: 96.8 (Final) [Above High Normal] MCH: 32.3 (Final) [Above High Normal] MCHC: 33.4 (Final) RDW CV: 13.6 (Final ) RDW SD: 48.1 (Final) [Above High Normal] PLT: 127 (Final) [Below Low Normal] MPV: 11.4 (Final) NEUT%: 58.2 (Final) LY%: 31.3 (Final) MONO%: 7.0 (Final) EO%: 3.1 (Final) BASO%: 0.2 (Final) IM GRAN %: 0.200 (Final) Absolute Neut: 2.8 (Final) Absolute Lymph: 1.52 (Final) Performing Lab:: see note (Final) Procedure Basic Metabolic Profile GLU: 223 (Final) [Above 5-15 2016-06-09 ([facility]) High Normal]BUN: 16 (Final) CREAT,SERUM: 1.19 (Final) EST GFR: 64 (Final) EST GFR - AA: 77 (Final) BUN/CRE: 13.4 (Randa l) CA: 9.0 (Final) NA: 139 (Final) K: 4.1 (Final) CL: 104 (Final) CO2: 26.0 (Final) GAP: 9 (Final) Procedure Uric Acid URIC: 3.1 (Final) 1 [Below Low Normal]Performing Lab:: see note (Final) Procedure D-Dimer Quantitative D-DIMER QUANT: 0.83 2016-06-09 (DVT/PE) (Final) [Alert High]Performing Lab:: see note (Final) Procedure Venous Duplex Lower Venous Duplex Lower 2 Extremity Extremity: see note (Final) Procedure D-Dimer Quantitative D-DIMER QUANT: 3.89 2016-07-26 (DVT/PE) (Final) [Alert High]Performing Lab:: see note (Final) Procedure RESPIRATORY PANEL RP PANEL: see note 2016 MOLECULAR (Final) Procedure Basic Metabolic Profile GLU: 389 (Final) [Above 2016-07-27 ([facility]) High Normal]BUN: 16 (Final) CREAT,SERUM: 1.28 (Final) EST GFR: 58 (Final) [Below Low Normal] EST GFR - AA: 71 (Final) BUN/CRE: 12.5 (Randa l) CA: 9.2 (Final) NA: 134 (Final) [Below Low Normal] K: 4.7 (Final) CL: 100 (Final) CO2: 27.0 (Final) GAP: 7 (Final) Performing Lab:: see note (Final) Procedure In-House: A1C Glycated hemoglobin 5.5-6.5 2016-08 test: 11.9 (Final) Procedure In-House: Lipid panel HDL Cholesterol: 37 0-130mg/dL 2016-09-05 (Final) Total Serum Cholesterol: <100 (Final) Triglycerides: 97 (Final) LDL Cholesterol: NA (Final) Procedure CBC W/Diff, Automated WBC: 6.5 (Final) RBC: 2016-09-05 4.79 (Final) HGB: 15.5 (Final) HCT: 47.5 (Final) MCV: 99.2 (Final) [Above High Normal] MCH: 32.4 (Final) [Above High Normal] MCHC: 32.6 (Final) RDW CV: 13.8 (Final ) RDW SD: 49.9 (Final) [Above High Normal] PLT: 145 (Final) [Below Low Normal] MPV: 11.5 (Final) NEUT%: 59.8 (Final) LY%: 31.8 (Final) MONO%: 6.5 (Final) EO%: 1.1 (Final) BASO%: 0.3 (Final) IM GRAN %: 0.500 (Final) Absolute Neut: 3.9 (Final) Absolute Lymph: 2.05 (Final) Performing Lab:: see note (Final) Procedure Comprehensive Metabolic GLU: 184 (Final) [Above 5-15 2016-09-05 Profil High Normal]BUN: 11 (Final) CREAT,SERUM: 0.85 (Final) EST GFR: 94 (Final) EST GFR - AA: 114 (Final) BUN/CRE: 13.0 (Randa l) T PROT: 7.2 (Final) ALB: 3.7 (Final) GLOB: 3.5 (Final) A/.1 (Final) CA: 9.0 (Final) AST: 16 (Final) ALK P: 63 (Final) ALT: 31 (Final) T BILI: 0.60 (Final ) NA: 138 (Final) K: 4.1 (Final) CL: 100 (Final) CO2: 31.0 (Final) GAP: 7 (Final) Procedure Uric Acid URIC: 2.0 (Final) 3.5-7.2 2016-08-11 7 [Below Low Normal] Procedure Thyroid Stim Hormone (TSH) TSH: 2.20 (Final) 2016-09-05 Performing Lab:: see note (Final) Procedure In-House: Urine, Microalbumin, semiquant: 2016-09-07 microalbumin 10 mg/L (Final) Procedure In-House: A1C Glycated hemoglobin 5.5-6.5 2016-11 test: 10.2 (Final) Procedure In-House: Lipid panel HDL Cholesterol: 50 0-130mg/dL 2016-12-01 (Final) Total Serum Cholesterol: 111 (Final) Triglycerides: 168 (Final) LDL Cholesterol: 27 (Final) Procedure CBC W/Diff, Automated WBC: 5.1 (Final) RBC: 2016-12-01 4.62 (Final) HGB: 15.0 (Final) HCT: 45.8 (Final) MCV: 99.1 (Final) [Above High Normal] MCH: 32.5 (Final) [Above High Normal] MCHC: 32.8 (Final) RDW CV: 13.4 (Final ) RDW SD: 48.4 (Final) [Above High Normal] PLT: 111 (Final) [Below Low Normal] MPV: 12.0 (Final) NEUT%: 56.0 (Final) LY%: 35.3 (Final) MONO%: 6.1 (Final) EO%: 1.6 (Final) BASO%: 0.6 (Final) IM GRAN %: 0.400 (Final) Absolute Neut: 2.8 (Final) Absolute Lymph: 1.79 (Final) Performing Lab:: see note (Final) Procedure Comprehensive Metabolic GLU: 261 (Final) [Above 5-15 2016-12-01 Profil High Normal]BUN: 12 (Final) CREAT,SERUM: 0.97 (Final) EST GFR: 80 (Final) EST GFR - AA: 97 (Final) BUN/CRE: 12.3 (Randa l) T PROT: 7.1 (Final) ALB: 3.5 (Final) GLOB: 3.6 (Final) [Above High Normal] A/.0 (Final) CA: 8.9 (Final) AST: 15 (Final) ALK P: 70 (Final) ALT: 35 (Final) T BILI: 0.80 (Final ) NA: 136 (Final) K: 4.7 (Final) CL: 100 (Final) CO2: 31.0 (Final) GAP: 5 (Final) Procedure Uric Acid URIC: 2.3 (Final) 3.5-7.2 2016-11-08 5 [Below Low Normal] Procedure Thyroid Stim Hormone (TSH) TSH: 2.31 (Final) 2016-12-01 Performing Lab:: see note (Final) Procedure CBC W/Diff, Automated WBC: 5.6 (Final) RBC: 2017-03-07 4.60 (Final) HGB: 15.3 (Final) HCT: 45.9 (Final) MCV: 99.8 (Final) [Above High Normal] MCH: 33.3 (Final) [Above High Normal] MCHC: 33.3 (Final) RDW CV: 13.7 (Final ) RDW SD: 49.1 (Final) [Above High Normal] PLT: 144 (Final) [Below Low Normal] MPV: 11.5 (Final) NEUT%: 52.2 (Final) LY%: 35.4 (Final) MONO%: 9.8 (Final) EO%: 2.0 (Final) BASO%: 0.4 (Final) IM GRAN %: 0.200 (Final) Absolute Neut: 2.9 (Final) Absolute Lymph: 1.98 (Final) Performing Lab:: see note (Final) Procedure Comprehensive Metabolic GLU: 82 (Final) BUN: 14 5-15 2017-03-07 Profil (Final) CREAT,SERUM: 0.99 (Final) EST GFR: 78 (Final) EST GFR - AA: 95 (Final) BUN/CRE: 14.1 (Randa l) T PROT: 7.3 (Final) ALB: 3.7 (Final) GLOB: 3.6 (Final) [Above High Normal] A/.0 (Final) CA: 9.1 (Final) AST: 22 (Final) ALK P: 57 (Final) ALT: 35 (Final) T BILI: 0.60 (Final ) NA: 141 (Final) K: 4.3 (Final) CL: 105 (Final) CO2: 26.0 (Final) GAP: 10 (Final) Procedure Uric Acid URIC: 4.8 (Final) 3.5-7.2 2017-02-08 9 Procedure Thyroid Stim Hormone (TSH) TSH: 2.25 (Final) 2017-03-07 Performing Lab:: see note (Final) Procedure In-House: A1C Glycated hemoglobin 5.5-6.5 2017-02 test: 6.5 (Final) Procedure In-House: Lipid panel HDL Cholesterol: 28 0-130mg/dL 2017-03-07 (Final) Total Serum Cholesterol: <100 (Final) Triglycerides: 145 (Final) LDL Cholesterol: NA (Final) Procedure CBC W/Diff, Automated WBC: 5.5 (Final) RBC: 0.83-4.51 2017-05-24 4.43 (Final) [Below Low Normal] HGB: 14.7 (Final) HCT: 43.6 (Final) MCV: 98.4 (Final) [Above High Normal] MCH: 33.2 (Final) [Above High Normal] MCHC: 33.7 (Final) RDW CV: 13.1 (Final ) RDW SD: 46.3 (Final) [Above High Normal] PLT: 118 (Final) [Below Low Normal] MPV: 11.6 (Final) NEUT%: 58.9 (Final) LY%: 28.4 (Final) MONO%: 9.6 (Final) EO%: 2.2 (Final) BASO%: 0.4 (Final) IM GRAN %: 0.500 (Final) Absolute Neut: 3.3 (Final) Absolute Lymph: 1.57 (Final) Procedure Erythrocyte Sed Rate SED RATE: 3 (Final) 2017-05-24 Performing Lab:: see note (Final) Procedure Basic Metabolic Profile GLU: 103 (Final) BUN: 5-15 2017-05-24 (BMP) 16 (Final) CREAT,SERUM: 1.04 (Final) EST GFR: 74 (Final) EST GFR - AA: 90 (Final) BUN/CRE: 15.4 (Randa l) CA: 9.0 (Final) NA: 140 (Final) K: 4.1 (Final) CL: 105 (Final) CO2: 29.0 (Final) GAP: 6 (Final) Procedure Uric Acid URIC: 3.3 (Final) 3.5-7.2 2017-05-10 5 [Below Low Normal] Procedure CRP, High Sensitivity CRP HIGH SENS: 2.42 2017-05-24 Cardiac (Final) Performing Lab:: see note (Final) Procedure MRSA Wound DNA by PCR MRSA RESULT: Negative 2017-05-24 (Final) SA RESULT: POSITIVE (Final) [Above High Normal] Performing Lab:: see note (Final) Procedure In-House: A1C Glycated hemoglobin 5.5-6.5 2017-05 test: 7.0 (Final) Procedure In-House: Lipid panel HDL Cholesterol: 32 0-130mg/dL 2017-06-08 (Final) Total Serum Cholesterol: 103 (Final) Triglycerides: 116 (Final) LDL Cholesterol: 48 (Final) Procedure CBC W/Diff, Automated WBC: 9.1 (Final) RBC: 2017-06-08 4.93 (Final) HGB: 16.0 (Final) HCT: 48.3 (Final) MCV: 98.0 (Final) [Above High Normal] MCH: 32.5 (Final) [Above High Normal] MCHC: 33.1 (Final) RDW CV: 13.6 (Final ) RDW SD: 48.4 (Final) [Above High Normal] PLT: 146 (Final) [Below Low Normal] MPV: 11.8 (Final) NEUT%: 67.4 (Final) LY%: 23.0 (Final) MONO%: 8.0 (Final) EO%: 1.1 (Final) BASO%: 0.2 (Final) IM GRAN %: 0.300 (Final) Absolute Neut: 6.1 (Final) Absolute Lymph: 2.09 (Final) Performing Lab:: see note (Final) Procedure Comprehensive Metabolic GLU: 213 (Final) [Above 5-15 2017-06-08 Profil High Normal]BUN: 18 (Final) CREAT,SERUM: 1.27 (Final) EST GFR: 59 (Final) [Below Low Normal] EST GFR - AA: 71 (Final) BUN/CRE: 14.2 (Randa l) T PROT: 7.1 (Final) ALB: 3.5 (Final) GLOB: 3.6 (Final) A/.0 (Final) CA: 8.4 (Final) [Below Low Normal] AST: 22 (Final) ALK P: 61 (Final) ALT: 41 (Final) T BILI: 0.80 (Final ) NA: 136 (Final) K: 4.2 (Final) CL: 102 (Final) CO2: 23.0 (Final) GAP: 11 (Final) Procedure Uric Acid URIC: 3.5 (Final) 3.5-7.2 2017-05-12 0 Procedure Thyroid Stim Hormone (TSH) TSH: 1.85 (Final) 2017-06-08 Performing Lab:: see note (Final) Procedure Culture, Wound CUW: see note (Final) 201 01-18-13 Procedure CBC W/Diff, Automated WBC: 5.5 (Final) RBC: 2017-07-11 4.39 (Final) [Below Low Normal] HGB: 14.3 (Final) HCT: 42.7 (Final) MCV: 97.3 (Final) [Above High Normal] MCH: 32.6 (Final) [Above High Normal] MCHC: 33.5 (Final) RDW CV: 13.8 (Final ) RDW SD: 47.8 (Final) [Above High Normal] PLT: 134 (Final) [Below Low Normal] MPV: 11.5 (Final) NEUT%: 66.5 (Final) LY%: 20.0 (Final) MONO%: 11.4 (Final) [Above High Normal] EO%: 0.9 (Final) BASO%: 0.6 (Final) IM GRAN %: 0.600 (Final) Absolute Neut: 3.6 (Final) Absolute Lymph: 1.09 (Final) Performing Lab:: see note (Final) Procedure D-Dimer Quantitative D-DIMER QUANT: 0.28 2017-07-11 (DVT/PE) (Final) Performing Lab:: see note (Final) Procedure Comprehensive Metabolic GLU: 207 (Final) [Above 2017-07-11 Profil High Normal]BUN: 18 (Final) CREAT,SERUM: 0.91 (Final) EST GFR: 86 (Final) EST GFR - AA: 104 (Final) BUN/CRE: 19.7 (Randa l) T PROT: 6.9 (Final) ALB: 3.1 (Final) [Below Low Normal] GLOB: 3.8 (Final) A/.8 (Final) [Below Low Normal] CA: 8.9 (Final) AST: 16 (Final) ALK P: 68 (Final) ALT: 31 (Final) T BILI: 0.60 (Final ) NA: 137 (Final) K: 4.1 (Final) CL: 102 (Final) CO2: 28.0 (Final) GAP: 7 (Final) Performing Lab:: see note (Final) Procedure BNP,B-Type NATRIURETIC B-TYPE JOO PEP: 7.0 2017-07-11 PEPTIDE (Final) Performing Lab:: see note (Final) Procedure Basic Metabolic Profile GLU: 183 (Final) [Above 2017-07-19 (BMP) High Normal]BUN: 17 (Final) CREAT,SERUM: 1.17 (Final) EST GFR: 65 (Final) EST GFR - AA: 78 (Final) BUN/CRE: 14.5 (Randa l) CA: 9.3 (Final) NA: 135 (Final) [Below Low Normal] K: 4.0 (Final) CL: 96 (Final) [Below Low Normal] CO2: 29.0 (Final) GAP: 10 (Final) Performing Lab:: see note (Final) Procedure Basic Metabolic Profile GLU: 116 (Final) [Above 2017-07-26 (BMP) High Normal]BUN: 14 (Final) CREAT,SERUM: 1.04 (Final) EST GFR: 74 (Final) EST GFR - AA: 90 (Final) BUN/CRE: 13.5 (Rnada l) CA: 9.4 (Final) NA: 140 (Final) K: 4.1 (Final) CL: 104 (Final) CO2: 29.0 (Final) GAP: 7 (Final) Performing Lab:: see note (Final) Procedure Basic Metabolic Profile GLU: 241 (Final) [Above 2017-08-02 (BMP) High Normal]BUN: 22 (Final) [Above High Normal] CREAT,SERUM: 1.10 (Final) EST GFR: 69 (Final) EST GFR - AA: 84 (Final) BUN/CRE: 20.0 (Randa l) CA: 8.8 (Final) NA: 132 (Final) [Below Low Normal] K: 4.0 (Final) CL: 93 (Final) [Below Low Normal] CO2: 27.0 (Final) GAP: 12 (Final) Performing Lab:: see note (Final) Procedure CBC W/Diff, Automated WBC: 4.5 (Final) RBC: 2017-09-07 4.30 (Final) [Below Low Normal] HGB: 14.2 (Final) HCT: 42.8 (Final) MCV: 99.5 (Final) [Above High Normal] MCH: 33.0 (Final) [Above High Normal] MCHC: 33.2 (Final) RDW CV: 14.7 (Final) [Above High Normal] RDW SD: 53.2 (Final) [Above High Normal] PLT: 143 (Final) [Below Low Normal] MPV: 11.6 (Final) NEUT%: 57.7 (Final) LY%: 29.8 (Final) MONO%: 8.5 (Final) EO%: 3.4 (Final) BASO%: 0.4 (Final) IM GRAN %: 0.200 (Final) Absolute Neut: 2.6 (Final) Absolute Lymph: 1.33 (Final) Performing Lab:: see note (Final) Procedure Comprehensive Metabolic GLU: 239 (Final) [Above 5-15 2017-09-07 Profil High Normal]BUN: 16 (Final) CREAT,SERUM: 1.13 (Final) EST GFR: 67 (Final) EST GFR - AA: 81 (Final) BUN/CRE: 14.2 (Randa l) T PROT: 7.0 (Final) ALB: 3.5 (Final) GLOB: 3.5 (Final) A/.0 (Final) CA: 9.0 (Final) AST: 32 (Final) ALK P: 58 (Final) ALT: 51 (Final) T BILI: 0.90 (Final ) NA: 137 (Final) K: 4.4 (Final) CL: 103 (Final) CO2: 26.0 (Final) GAP: 8 (Final) Procedure Uric Acid URIC: 4.8 (Final) 3.5-7.2 1 Procedure Thyroid Stim Hormone (TSH) TSH: 2.54 (Final) 2017-09-07 Performing Lab:: see note (Final) Procedure Urine, microalbumin Microalbumin, semiquant: 2017-09-07 10 mg/L (Final) Procedure A1C Glycated hemoglobin 5.5-6.5 test: 7.1 (Final) Procedure Lipid panel HDL Cholesterol: 29 0-130mg/dL (Final) Total Serum Cholesterol: 164 (Final) Triglycerides: 192 (Final) LDL Cholesterol: 96 (Final) Procedure Vitamin D,25 Hydroxy Vitamin D 25-OH: 16.4 2017-09-07 (Final) [Below Low Normal]Performing Lab:: see note (Final) Procedure A1C Glycated hemoglobin 5.5-6.5 test: 9.9 (Final) Procedure Lipid panel HDL Cholesterol: 27 0-130mg/dL (Final) Total Serum Cholesterol: <100 (Final) Triglycerides: 142 (Final) LDL Cholesterol: NA (Final) Procedure CBC W/Diff, Automated WBC: 7.0 (Final) RBC: 2018-02-27 4.46 (Final) [Below Low Normal] HGB: 14.7 (Final) HCT: 44.1 (Final) MCV: 98.9 (Final) [Above High Normal] MCH: 33.0 (Final) [Above High Normal] MCHC: 33.3 (Final) RDW CV: 13.4 (Final ) RDW SD: 47.9 (Final) [Above High Normal] PLT: 162 (Final) MPV: 11.7 (Final) NEUT%: 65.3 (Final) LY%: 24.0 (Final) MONO%: 8.9 (Final) EO%: 1.6 (Final) BASO%: 0.1 (Final) IM GRAN %: 0.100 (Final) Absolute Neut: 4.6 (Final) Absolute Lymph: 1.68 (Final) Performing Lab:: see note (Final) Procedure Comprehensive Metabolic GLU: 198 (Final) [Above 11-212018-02-27 Profil High Normal]BUN: 14 (Final) CREAT,SERUM: 1.15 (Final) EST GFR: 66 (Final) EST GFR - AA: 80 (Final) BUN/CRE: 12.2 (Randa l) T PROT: 7.6 (Final) ALB: 3.5 (Final) GLOB: 4.1 (Final) A/.9 (Final) CA: 9.4 (Final) AST: 23 (Final) ALK P: 72 (Final) ALT: 33 (Final) T BILI: 0.70 (Final ) NA: 141 (Final) K: 4.7 (Final) CL: 104 (Final) CO2: 25.0 (Final) GAP: 12 (Final) Procedure Uric Acid URIC: 2.9 (Final) 3.5-7.2 2018-02-08 1 [Below Low Normal] Procedure Thyroid Stim Hormone (TSH) TSH: 2.79 (Final) 2018-02-27 Performing Lab:: see note (Final) Procedure Vitamin D,25 Hydroxy Vitamin D 25-OH: 20.3 2018-02-27 (Final) [Below Low Normal]Performing Lab:: see note (Final) Procedure Comprehensive Metabolic GLU: 132 (Final) [Above 5-15 2018-05-28 Profil High Normal]BUN: 10 (Final) CREAT,SERUM: 0.95 (Final) EST GFR: 82 (Final) EST GFR - AA: 99 (Final) BUN/CRE: 10.5 (Randa l) T PROT: 7.2 (Final) ALB: 3.5 (Final) GLOB: 3.7 (Final) A/.9 (Final) CA: 9.1 (Final) AST: 14 (Final) [Below Low Normal] ALK P: 65 (Final) ALT: 27 (Final) T BILI: 0.50 (Final ) NA: 140 (Final) K: 4.1 (Final) CL: 105 (Final) CO2: 30.0 (Final) GAP: 5 (Final) Procedure Uric Acid URIC: 2.7 (Final) 3.5-7.2 2018-05-10 9 [Below Low Normal] Procedure Thyroid Stim Hormone (TSH) TSH: 3.56 (Final) 2018-05-28 Performing Lab:: see note (Final) Procedure Vitamin D,25 Hydroxy Vitamin D 25-OH: 20.6 2018-05-28 (Final) [Below Low Normal]Performing Lab:: see note (Final) Procedure CBC W/Diff, Automated WBC: 5.3 (Final) RBC: 2018-05-28 4.54 (Final) [Below Low Normal] HGB: 14.6 (Final) HCT: 45.6 (Final) MCV: 100.4 (Final) [Above High Normal] MCH: 32.2 (Final) [Above High Normal] MCHC: 32.0 (Final) RDW CV: 12.8 (Final ) RDW SD: 46.9 (Final) [Above High Normal] PLT: 137 (Final) [Below Low Normal] MPV: 11.6 (Final) NEUT%: 55.9 (Final) LY%: 31.0 (Final) MONO%: 9.5 (Final) EO%: 3.0 (Final) BASO%: 0.2 (Final) IM GRAN %: 0.400 (Final) Absolute Neut: 2.9 (Final) Absolute Lymph: 1.63 (Final) Performing Lab:: see note (Final) Procedure Urinalysis, dip stick Glucose: 3+ 1000 20 28-08-04 (Final) Bilirubin: NEG (Final) Ketones: NEG (Final ) SP/.030 (Final) Blood: NEG (Final) pH: 5.0 (Final) Protein: NEG (Final ) Urobilinogen: 0.2 (Final) Nitrates: NEG (Randa l) Leukocytes: NEG (Final) Trich: (Final) WBC/HPF: (Final) RBC/HPF: (Final) Bacteria: (Final) Epithelial Cells: (Final) Casts/HPF: (Final) Procedure A1C Glycated hemoglobin 5.5-6.5 test: 7.2 (Final) Procedure Comprehensive Metabolic GLU: 111 (Final) [Above 2018-08-14 Profil High Normal]BUN: 14 (Final) CREAT,SERUM: 1.05 (Final) EST GFR: 73 (Final) EST GFR - AA: 88 (Final) BUN/CRE: 13.3 (Randa l) T PROT: 7.8 (Final) ALB: 3.9 (Final) GLOB: 3.9 (Final) A/.0 (Final) CA: 9.1 (Final) AST: 20 (Final) ALK P: 67 (Final) ALT: 31 (Final) T BILI: 0.60 (Final ) NA: 141 (Final) K: 4.0 (Final) CL: 109 (Final) [Above High Normal] CO2: 26.0 (Final) GAP: 6 (Final) Performing Lab:: see note (Final) Procedure CBC W/Diff, Automated WBC: 6.1 (Final) RBC: 2018-08-14 4.75 (Final) HGB: 15.6 (Final) HCT: 48.1 (Final) MCV: 101.3 (Final) [Above High Normal] MCH: 32.8 (Final) [Above High Normal] MCHC: 32.4 (Final) RDW CV: 14.6 (Final ) RDW SD: 53.9 (Final) [Above High Normal] PLT: 166 (Final) MPV: 11.2 (Final) NEUT%: 59.3 (Final) LY%: 30.1 (Final) MONO%: 7.7 (Final) EO%: 2.3 (Final) BASO%: 0.3 (Final) IM GRAN %: 0.300 (Final) Absolute Neut: 3.6 (Final) Absolute Lymph: 1.85 (Final) Performing Lab:: see note (Final) Procedure A1C Glycated hemoglobin 5.5-6.5 test: 6.8 (Final) Procedure Lipid panel HDL Cholesterol: 36 0-130mg/dL (Final) Total Serum Cholesterol: <100 (Final) Triglycerides: 103 (Final) LDL Cholesterol: NA (Final) Procedure CBC W/Diff, Automated WBC: 7.3 (Final) RBC: 2018-09-10 4.98 (Final) HGB: 16.3 (Final) HCT: 50.5 (Final) MCV: 101.4 (Final) [Above High Normal] MCH: 32.7 (Final) [Above High Normal] MCHC: 32.3 (Final) RDW CV: 13.8 (Final ) RDW SD: 50.8 (Final) [Above High Normal] PLT: 148 (Final) [Below Low Normal] MPV: 11.7 (Final) NEUT%: 61.0 (Final) LY%: 29.5 (Final) MONO%: 7.1 (Final) EO%: 1.6 (Final) BASO%: 0.4 (Final) IM GRAN %: 0.400 (Final) Absolute Neut: 4.5 (Final) Absolute Lymph: 2.16 (Final) Performing Lab:: see note (Final) Procedure Vitamin D,25 Hydroxy Vitamin D 25-OH: 16.2 2018-09-10 (Final) [Below Low Normal]Performing Lab:: see note (Final) Procedure Comprehensive Metabolic GLU: 88 (Final) BUN: 15 5-15 2018-09-10 Profil (Final) CREAT,SERUM: 0.97 (Final) EST GFR: 80 (Final) EST GFR - AA: 97 (Final) BUN/CRE: 15.5 (Randa l) T PROT: 7.8 (Final) ALB: 3.9 (Final) GLOB: 3.9 (Final) A/.0 (Final) CA: 9.5 (Final) AST: 19 (Final) ALK P: 65 (Final) ALT: 33 (Final) T BILI: 0.60 (Final ) NA: 140 (Final) K: 4.5 (Final) CL: 107 (Final) CO2: 20.0 (Final) [Below Low Normal] GAP: 13 (Final) Procedure Uric Acid URIC: 2.4 (Final) 3.5-7.2 4 [Below Low Normal] Procedure Thyroid Stim Hormone (TSH) TSH: 1.87 (Final) 2018-09-10 Performing Lab:: see note (Final) Procedure A1C Glycated hemoglobin 5.5-6.5 test: 6.6 (Final) Procedure Lipid panel HDL Cholesterol: 28 0-130mg/dL (Final) Total Serum Cholesterol: <100 (Final) Triglycerides: 152 (Final) LDL Cholesterol: NA (Final) Procedure CBC W/Diff, Automated WBC: 5.1 (Final) RBC: 2019-03-14 4.58 (Final) [Below Low Normal] HGB: 14.8 (Final) HCT: 46.7 (Final) MCV: 102.0 (Final) [Above High Normal] MCH: 32.3 (Final) [Above High Normal] MCHC: 31.7 (Final) [Below Low Normal] RDW CV: 13.8 (Final ) RDW SD: 52.0 (Final) [Above High Normal] PLT: 127 (Final) [Below Low Normal] MPV: 11.4 (Final) NEUT%: 59.1 (Final) LY%: 30.3 (Final) MONO%: 8.0 (Final) EO%: 1.4 (Final) BASO%: 0.8 (Final) IM GRAN %: 0.400 (Final) Absolute Neut: 3.0 (Final) Absolute Lymph: 1.55 (Final) NRBC, FLAGGED: 0 (Final) Performing Lab:: see note (Final) Procedure Vitamin D,25 Hydroxy Vitamin D 25-OH: 20.6 2019-03-14 (Final) [Below Low Normal]Performing Lab:: see note (Final) Procedure Comprehensive Metabolic GLU: 126 (Final) [Above 5-15 2019-03-14 Profil High Normal]BUN: 16 (Final) CREAT,SERUM: 1.01 (Final) EST GFR: 76 (Final) EST GFR - AA: 92 (Final) BUN/CRE: 15.8 (Randa l) T PROT: 7.1 (Final) ALB: 3.5 (Final) GLOB: 3.6 (Final) A/.0 (Final) CA: 9.2 (Final) AST: 15 (Final) ALK P: 63 (Final) ALT: 23 (Final) T BILI: 0.40 (Final ) NA: 142 (Final) K: 4.3 (Final) CL: 107 (Final) CO2: 28.0 (Final) GAP: 7 (Final) Procedure Uric Acid URIC: 3.0 (Final) 3.5-7.2 5 [Below Low Normal] Procedure Thyroid Stim Hormone (TSH) TSH: 1.62 (Final) 2019-03-14 Performing Lab:: see note (Final) Procedure A1C Glycated hemoglobin 5.5-6.5 test: 7.6 (Final) Procedure Lipid panel HDL Cholesterol: 35 0-130mg/dL (Final) Total Serum Cholesterol: 102 (Final) Triglycerides: 131 (Final) LDL Cholesterol: 40 (Final) Procedure CBC W/Diff, Automated WBC: 5.8 (Final) RBC: 2019-09-12 4.98 (Final) HGB: 15.9 (Final) HCT: 49.1 (Final) MCV: 98.6 (Final) [Above High Normal] MCH: 31.9 (Final) MCHC: 32.4 (Final) RDW CV: 13.4 (Final ) RDW SD: 48.0 (Final) [Above High Normal] PLT: 141 (Final) [Below Low Normal] MPV: 11.8 (Final) NEUT%: 61.1 (Final) LY%: 27.3 (Final) MONO%: 9.1 (Final) EO%: 1.7 (Final) BASO%: 0.5 (Final) IM GRAN %: 0.300 (Final) Absolute Neut: 3.6 (Final) Absolute Lymph: 1.59 (Final) NRBC, FLAGGED: 0 (Final) Performing Lab:: see note (Final) Procedure Comprehensive Metabolic GLU: 132 (Final) [Above 5-15 2019-09-12 Profil High Normal]BUN: 19 (Final) [Above High Normal] CREAT,SERUM: 1.06 (Final) EST GFR: 72 (Final) EST GFR - AA: 87 (Final) BUN/CRE: 17.9 (Randa l) T PROT: 7.6 (Final) ALB: 3.7 (Final) GLOB: 3.9 (Final) A/.9 (Final) CA: 9.6 (Final) AST: 16 (Final) ALK P: 63 (Final) ALT: 32 (Final) T BILI: 0.70 (Final ) NA: 139 (Final) K: 4.6 (Final) CL: 107 (Final) CO2: 25.0 (Final) GAP: 7 (Final) Procedure Uric Acid URIC: 3.3 (Final) 3.5-7.2 5 [Below Low Normal] Procedure Thyroid Stim Hormone (TSH) TSH: 2.26 (Final) 2019-09-12 Performing Lab:: see note (Final) Procedure Vitamin D,25 Hydroxy Vitamin D 25-OH: 27.2 2019-09-12 (Final) Performing Lab:: see note (Final) Procedure A1C Glycated hemoglobin 5.5-6.5 test: 7.5 (Final) Procedure Lipid panel HDL Cholesterol: 34 0-130mg/dL (Final) Total Serum Cholesterol: <100 (Final) Triglycerides: 387 (Final) LDL Cholesterol: N/A (Final) Procedure CBC W/Diff, Automated WBC: 5.0 (Final) RBC: 2020-03-12 4.47 (Final) [Below Low Normal] HGB: 14.6 (Final) HCT: 45.6 (Final) MCV: 102.0 (Final) [Above High Normal] MCH: 32.7 (Final) [Above High Normal] MCHC: 32.0 (Final) RDW CV: 13.7 (Final ) RDW SD: 52.1 (Final) [Above High Normal] PLT: 146 (Final) [Below Low Normal] MPV: 11.4 (Final) NEUT%: 59.8 (Final) LY%: 28.1 (Final) MONO%: 9.3 (Final) EO%: 2.0 (Final) BASO%: 0.4 (Final) IM GRAN %: 0.400 (Final) Absolute Neut: 3.0 (Final) Absolute Lymph: 1.39 (Final) NRBC, FLAGGED: 0 (Final) Performing Lab:: see note (Final) Procedure Vitamin D,25 Hydroxy Vitamin D 25-OH: 31.9 2020-03-12 (Final) Performing Lab:: see note (Final) Procedure Comprehensive Metabolic GLU: 196 (Final) [Above 5-15 2020-03-12 Profil High Normal]BUN: 16 (Final) CREAT,SERUM: 1.18 (Final) EST GFR: 64 (Final) EST GFR - AA: 77 (Final) BUN/CRE: 13.6 (Randa l) T PROT: 7.3 (Final) ALB: 3.7 (Final) GLOB: 3.6 (Final) A/.0 (Final) CA: 8.9 (Final) AST: 17 (Final) ALK P: 58 (Final) ALT: 28 (Final) T BILI: 0.50 (Final ) NA: 139 (Final) K: 4.3 (Final) CL: 108 (Final) [Above High Normal] CO2: 26.0 (Final) GAP: 5 (Final) Procedure Uric Acid URIC: 2.7 (Final) 3.5-7.2 3 [Below Low Normal] Procedure Thyroid Stim Hormone (TSH) TSH: 1.83 (Final) 2020-03-12 Performing Lab:: see note (Final) Procedure OT General Evaluation OT General Evaluation: 2020-03-25 see note (Final) Procedure OT D/C Summary OT D/C Summary: see note 2 (Final) Procedure A1C Glycated hemoglobin 5.5-6.5 test: 11.2 (Final) Procedure Lipid panel HDL Cholesterol: 31 0-130mg/dL (Final) Total Serum Cholesterol: <100 (Final) Triglycerides: 121 (Final) LDL Cholesterol: N/A (Final) Procedure CBC W/Diff, Automated WBC: 4.9 (Final) RBC: 0-5 2020-09-14 4.44 (Final) [Below Low Normal] HGB: 14.3 (Final) HCT: 43.6 (Final) MCV: 98.2 (Final) [Above High Normal] MCH: 32.2 (Final) [Above High Normal] MCHC: 32.8 (Final) RDW CV: 13.0 (Final ) RDW SD: 46.5 (Final) [Above High Normal] PLT: 151 (Final) MPV: 11.9 (Final) NEUT%: 55.5 (Final) LY%: 31.8 (Final) MONO%: 9.1 (Final) EO%: 2.6 (Final) BASO%: 0.6 (Final) IG%: 0.400 (Final) Absolute Neut: 2.7 (Final) Absolute Lymph: 1.57 (Final) NUCLEATED RBC: 0 (Final) Procedure Vitamin D,25 Hydroxy Vitamin D 25-OH: 27.5 2020-09-14 (Final) Procedure Comprehensive Metabolic GLU: 415 (Final) [Above 5-15 2020-09-14 Profil High Normal]BUN: 12 (Final) CREAT,SERUM: 1.25 (Final) EST GFR: 59 (Final) [Below Low Normal] EST GFR - AA: 72 (Final) BUN/CRE: 9.6 (Final) [Below Low Normal] T PROT: 7.0 (Final) ALB: 3.5 (Final) GLOB: 3.5 (Final) A/.0 (Final) CA,Total: 9.0 (Randa l) AST: 17 (Final) ALK P: 74 (Final) ALT: 32 (Final) T BILI: 0.60 (Final ) NA: 135 (Final) [Below Low Normal] Potassium: 4.4 (Fin al) CL: 101 (Final) CO2: 27.0 (Final) GAP: 7 (Final) Procedure Uric Acid URIC: 2.4 (Final) 3.5-7.2 8 [Below Low Normal] Procedure Thyroid Stim Hormone (TSH) TSH: 2.04 (Final) 2020-09-14 Performing Lab:: see note (Final) Procedure Glucose Assay of glucose, quant: 74-106 07-14-27 506 (Final) Procedure A1C Glycated hemoglobin 5.5-6.5 test: 11.8 (Final) Procedure A1C Glycated hemoglobin 5.5-6.5 test: 11.1 (Final) Procedure Lipid panel HDL Cholesterol: 34 0-130mg/dL (Final) Total Serum Cholesterol: 101 (Final) Triglycerides: 84 (Final) LDL Cholesterol: 50 (Final) Procedure Venous Duplex US, Venous Duplex US, 12-21 Unilateral Unilateral: see note (Final) Procedure CBC W/Diff, Automated WBC: 5.8 (Final) RBC: 0-5 2020-12-21 4.71 (Final) HGB: 15.0 (Final) HCT: 44.7 (Final) MCV: 94.9 (Final) [Above High Normal] MCH: 31.8 (Final) MCHC: 33.6 (Final) RDW CV: 12.6 (Final ) RDW SD: 44.5 (Final) [Above High Normal] PLT: 188 (Final) MPV: 11.6 (Final) NEUT%: 54.5 (Final) LY%: 33.5 (Final) MONO%: 9.6 (Final) EO%: 1.4 (Final) BASO%: 0.5 (Final) IG%: 0.500 (Final) Absolute Neut: 3.2 (Final) Absolute Lymph: 1.95 (Final) NUCLEATED RBC: 0 (Final) Procedure Vitamin D,25 Hydroxy Vitamin D 25-OH: 39.2 2020-12-21 (Final) Procedure Comprehensive Metabolic GLU: 255 (Final) [Above 5-15 2020-12-21 Profil High Normal]BUN: 21 (Final) [Above High Normal] CREAT,SERUM: 1.18 (Final) EST GFR: 63 (Final) EST GFR - AA: 77 (Final) BUN/CRE: 17.8 (Randa l) T PROT: 7.6 (Final) ALB: 3.6 (Final) GLOB: 4.0 (Final) A/.9 (Final) CA,Total: 9.2 (Randa l) AST: 17 (Final) ALK P: 73 (Final) ALT: 28 (Final) T BILI: 0.90 (Final ) NA: 135 (Final) [Below Low Normal] Potassium: 4.0 (Fin al) CL: 98 (Final) CO2: 28.0 (Final) GAP: 9 (Final) Procedure Uric Acid URIC: 3.8 (Final) 3.5-7.2 2020-12-08 4 Procedure Thyroid Stim Hormone (TSH) TSH: 2.69 (Final) 0.358-3. 74 2020-12-21 Procedure MRSA Wound DNA by PCR MRSA DNA ASSAY: Negative 2020-12-21 (Final) SA DNA ASSAY: POSITIVE (Final) [Abnormal] Performing Lab:: see note (Final) Procedure Wound Culture WC: see note (Final) 12-21 Procedure Gram Stain GS: see note (Final) - Procedure Glucose Assay of glucose, quant: 74-106 07-15-21 81 (Final) Procedure A1C Glycated hemoglobin 5.5-6.5 test: 10.3 (Final) Procedure Wound Ctr History AND Wound Ctr History: see 2021-01-01 Physical note (Final) Procedure A1C Glycated hemoglobin 5.5-6.5 test: 5.4 (Final) Procedure Lipid panel HDL Cholesterol: 33 0-130mg/dL (Final) Total Serum Cholesterol: <100 (Final) Triglycerides: 94 (Final) LDL Cholesterol: N/A (Final) Procedure CBC W/Diff, Automated WBC: 5.7 (Final) RBC: 0-5 2021-03-23 4.76 (Final) HGB: 15.3 (Final) HCT: 48.1 (Final) MCV: 101.1 (Final) [Above High Normal] MCH: 32.1 (Final) [Above High Normal] MCHC: 31.8 (Final) [Below Low Normal] RDW CV: 13.3 (Final ) RDW SD: 50.5 (Final) [Above High Normal] PLT: 164 (Final) MPV: 11.2 (Final) NEUT%: 59.7 (Final) LY%: 28.0 (Final) MONO%: 9.4 (Final) EO%: 2.1 (Final) BASO%: 0.4 (Final) IG%: 0.400 (Final) Absolute Neut: 3.4 (Final) Absolute Lymph: 1.58 (Final) NUCLEATED RBC: 0 (Final) Procedure Vitamin D,25 Hydroxy Vitamin D 25-OH: 55.3 2021-03-23 (Final) Procedure Comprehensive Metabolic GLU: 62 (Final) [Below 5-15 2021-03-23 Profil Low Normal]BUN: 15 (Final) CREAT,SERUM: 1.05 (Final) EST GFR: 72 (Final) EST GFR - AA: 88 (Final) BUN/CRE: 14.3 (Randa l) T PROT: 7.4 (Final) ALB: 3.5 (Final) GLOB: 3.9 (Final) A/.9 (Final) CA,Total: 9.3 (Randa l) AST: 16 (Final) ALK P: 56 (Final) ALT: 28 (Final) T BILI: 0.50 (Final ) NA: 140 (Final) Potassium: 4.1 (Fin al) CL: 107 (Final) CO2: 28.0 (Final) GAP: 5 (Final) Procedure Uric Acid URIC: 3.0 (Final) 3.5-7.2 2021-03-10 4 [Below Low Normal] Procedure Thyroid Stim Hormone (TSH) TSH: 3.05 (Final) 2021-03-23 Performing Lab:: see note (Final) Procedure Emergency Department Emergency Department 2021-06-06 Summary Summary: see note (Final) Procedure 12 Lead EKG 12 Lead EKG: see note 2020-07 (Final) Procedure History and Physical Exam History and Physical 2021-06-08 Exam: see note (Final) Procedure Discharge Summary Discharge Summary: see 2021-06-14 note (Final) Procedure A1C Glycated hemoglobin 5.5-6.5 test: 5.3 (Final) Procedure Lipid panel HDL Cholesterol: 33 0-130mg/dL (Final) Total Serum Cholesterol: <100 (Final) Triglycerides: 62 (Final) LDL Cholesterol: N/A (Final) Procedure CBC W/Diff, Automated WBC: 8.7 (Final) RBC: 0-5 2021-06-21 3.61 (Final) [Below Low Normal] HGB: 11.9 (Final) [Below Low Normal] HCT: 37.2 (Final) [Below Low Normal] MCV: 103.0 (Final) [Above High Normal] MCH: 33.0 (Final) [Above High Normal] MCHC: 32.0 (Final) RDW CV: 16.3 (Final) [Above High Normal] RDW SD: 61.4 (Final) [Above High Normal] PLT: 312 (Final) MPV: 10.2 (Final) NEUT%: 70.6 (Final) [Above High Normal] LY%: 19.0 (Final) MONO%: 8.8 (Final) EO%: 0.6 (Final) BASO%: 0.5 (Final) IG%: 0.500 (Final) Absolute Neut: 6.2 (Final) Absolute Lymph: 1.66 (Final) NUCLEATED RBC: 0 (Final) Procedure Vitamin D,25 Hydroxy Vitamin D 25-OH: 44.9 2021-06-21 (Final) Procedure Comprehensive Metabolic GLU: 127 (Final) [Above 5-15 2021-06-21 Profil High Normal]BUN: 26 (Final) [Above High Normal] CREAT,SERUM: 1.06 (Final) EST GFR: 72 (Final) EST GFR - AA: 87 (Final) BUN/CRE: 24.5 (Final) [Above High Normal] T PROT: 7.4 (Final) ALB: 3.0 (Final) [Below Low Normal] GLOB: 4.4 (Final) [Above High Normal] A/.7 (Final) [Below Low Normal] CA,Total: 9.3 (Randa l) AST: 17 (Final) ALK P: 130 (Final) [Above High Normal] ALT: 27 (Final) T BILI: 1.20 (Final) [Above High Normal] NA: 136 (Final) Potassium: 4.7 (Fin al) CL: 105 (Final) CO2: 26.0 (Final) GAP: 5 (Final) Procedure Uric Acid URIC: 3.1 (Final) 3.5-7.2 2021-06-09 3 [Below Low Normal] Procedure Thyroid Stim Hormone (TSH) TSH: 2.68 (Final) 2021-06-21 Performing Lab:: see note (Final) Procedure Wound Ctr History AND Wound Ctr History: see 2021-06-24 Physical note (Final) Procedure Orthopedic Visit Report Orthopedic Visit Report: 2021-06-28 see note (Final)
== END | disposition home or self-care (01) ==
LOC: POLAB3 14:42
PROVIDERS: PCP Family Medicine Geriatric Medicine; Visit Provider Family Medicine Geriatric Medicine
DX: E11.9 Type 2 diabetes mellitus without complications (principal); I10 Essential (primary) hypertension; E55.9 Vitamin D deficiency, unspecified; M10.9 Gout, unspecified
CPT/HCPCS: 36415; 80053; 82306; 84443; 84550; 85025

== ENCOUNTER → 2022-03-28 | Outpatient (CLI) | payer MEDICARE, SELFPAY ==
[2022-03-28 15:42] LABS: Absolute Neutrophil Count 3.6 X10^3/uL (2.0-7.7); Basophil# 0.04 X10^3/uL; Basophil% 0.6 % (0-1); Eosinophil# 0.15 X10^3/uL; Eosinophils% 2.3 % (0-5); Hematocrit 50.6 % (40-54); Hemoglobin 16.5 g/dL (13.0-16.5); Lymphocyte % 32.8 % (19-41); Mean Corp Hgb Conc 32.6 g/dL (32-36); Mean Corpuscular Hgb 33.1 pg (27.0-32.0); Mean Corpuscular Volume 101.4 fL (80-94); Mean Platelet Vol. 11.5 fl (6.2-12.0); Monocyte# 0.51 X10^3/uL; NRBC Flagged by Analyzer 0 % (0-5); Neutrophil # 3.58 X10^3/uL (2.7-7.7); Neutrophil % 55.8 % (47-70); Platelet Count 174 K/mm3 (150-450); RBC Distribution Width CV 13.2 % (11.6-14.6); RBC Distribution Width SD 49.5 fl (35.1-43.9); Red Blood Count 4.99 M/mm3 (4.6-6.2); White Blood Count 6.4 K/mm3 (4.4-11.0)
[2022-03-28 15:57] LABS: Vitamin D,25 Hydroxy 31.7 ng/mL
[2022-03-28 16:04] LABS: AST(SGOT) 17 U/L (15-37); Alanine Aminotransfer ALT/SGPT 27 U/L (16-61); Albumin, Serum 3.8 g/dL (3.2-5.0); Alkaline Phosphatase 71 U/L (45-117); Anion Gap 9 (5-15); BUN 16 mg/dL (7-18); BUN/Creat Ratio 17.2 RATIO (10-20); Calcium,Total 9.5 mg/dL (8.5-10.1); Chloride 103 mmol/L (98-107); Creatinine, Serum 0.93 mg/dL (0.70-1.30); EST Glomerular Filtration Rate 83 mL/min (>60); Est Glom Filt Rate - Afr Amer 100 mL/min (>60); Globulin 3.9 g/dL (2.2-4.2); Glucose 142 mg/dL (74-106); Protein, Total 7.7 g/dL (6.4-8.2); Sodium Level 140 mmol/L (136-145); Thyroid Stim Hormone (TSH) 1.79 uIU/mL (0.358-3.74); Uric Acid 3.1 mg/dL (3.5-7.2)
== END | disposition home or self-care (01) ==
LOC: POLAB3 12:59
PROVIDERS: PCP Family Medicine Geriatric Medicine; Visit Provider Family Medicine Geriatric Medicine
DX: I10 Essential (primary) hypertension (principal); E11.9 Type 2 diabetes mellitus without complications; E55.9 Vitamin D deficiency, unspecified; M10.9 Gout, unspecified
CPT/HCPCS: 36415; 80053; 82306; 84443; 84550; 85025

== ENCOUNTER → 2022-10-06 | Outpatient (CLI) | payer MEDICARE, SELFPAY ==
[2022-10-06 17:24] LABS: Absolute Lymphocyte Count 1.55 X10^3/uL (0.83-4.51); Absolute Neutrophil Count 3.5 X10^3/uL (2.0-7.7); Basophil# 0.03 X10^3/uL; Basophil% 0.5 % (0-1); Eosinophils% 1.8 % (0-5); Hematocrit 49.9 % (40-54); Hemoglobin 16.2 g/dL (13.0-16.5); Lymphocyte # 1.55 X10^3/ul (0.83-4.51); Lymphocyte % 27.6 % (19-41); Mean Corp Hgb Conc 32.5 g/dL (32-36); Mean Corpuscular Hgb 32.7 pg (27.0-32.0); Mean Corpuscular Volume 100.6 fL (80-94); Mean Platelet Vol. 11.6 fl (6.2-12.0); Monocyte# 0.46 X10^3/uL; Monocyte% 8.2 % (0-10); NRBC Flagged by Analyzer 0 % (0-5); Neutrophil # 3.45 X10^3/uL (2.7-7.7); Neutrophil % 61.5 % (47-70); Platelet Count 175 K/mm3 (150-450); RBC Distribution Width CV 13.2 % (11.6-14.6); RBC Distribution Width SD 48.5 fl (35.1-43.9); Red Blood Count 4.96 M/mm3 (4.6-6.2); White Blood Count 5.6 K/mm3 (4.4-11.0)
[2022-10-06 17:45] LABS: ALB/GLOB Ratio 1.1 RATIO (0.9-2.4); AST(SGOT) 14 U/L (15-37); Alanine Aminotransfer ALT/SGPT 25 U/L (16-61); Albumin, Serum 3.9 g/dL (3.2-5.0); Alkaline Phosphatase 65 U/L (45-117); Anion Gap 7 (5-15); BUN 17 mg/dL (7-18); BUN/Creat Ratio 17.4 RATIO (10-20); Calcium,Total 9.1 mg/dL (8.5-10.1); Chloride 106 mmol/L (98-107); Creatinine, Serum 0.98 mg/dL (0.70-1.30); EST Glomerular Filtration Rate 78 mL/min (>60); Est Glom Filt Rate - Afr Amer 95 mL/min (>60); Globulin 3.4 g/dL (2.2-4.2); Glucose 133 mg/dL (74-106); Potassium 4.2 mmol/L (3.5-5.1); Protein, Total 7.3 g/dL (6.4-8.2); Sodium Level 139 mmol/L (136-145); Thyroid Stim Hormone (TSH) 2.27 uIU/mL (0.358-3.74); Uric Acid 2.7 mg/dL (3.5-7.2)
[2022-10-06 17:55] LABS: Vitamin D,25 Hydroxy 42.3 ng/mL
== END | disposition home or self-care (01) ==
LOC: POLAB3 14:25
PROVIDERS: PCP Family Medicine Geriatric Medicine; Visit Provider Family Medicine Geriatric Medicine
DX: E55.9 Vitamin D deficiency, unspecified (principal); E11.9 Type 2 diabetes mellitus without complications; I10 Essential (primary) hypertension; M10.9 Gout, unspecified
CPT/HCPCS: 36415; 80053; 82306; 84443; 84550; 85025

== ENCOUNTER → 2023-03-10 | Outpatient (CLI) | payer MEDICARE, SELFPAY | END | disposition home or self-care (01) | LOC: PSN 12:20 | PROVIDERS: PCP Family Medicine Geriatric Medicine; Referring Provider Family Medicine Geriatric Medicine; Visit Provider Family Medicine Geriatric Medicine | DX: R68.83 Chills (without fever) (principal) | CPT/HCPCS: 87635; 87804; 87807 ==

== ENCOUNTER → 2023-03-30 | Outpatient (CLI) | payer MEDICARE, SELFPAY ==
[2023-03-30 15:43] LABS: Absolute Lymphocyte Count 1.46 X10^3/uL (0.83-4.51); Absolute Neutrophil Count 4.2 X10^3/uL (2.0-7.7); Basophil# 0.03 X10^3/uL; Basophil% 0.5 % (0-1); Eosinophil# 0.13 X10^3/uL; Hematocrit 48.7 % (40-54); Hemoglobin 15.9 g/dL (13.0-16.5); Lymphocyte # 1.46 X10^3/ul (0.83-4.51); Lymphocyte % 22.8 % (19-41); Mean Corp Hgb Conc 32.6 g/dL (32-36); Mean Corpuscular Hgb 32.6 pg (27.0-32.0); Mean Corpuscular Volume 99.8 fL (80-94); Mean Platelet Vol. 11.2 fl (6.2-12.0); Monocyte# 0.51 X10^3/uL; NRBC Flagged by Analyzer 0 % (0-5); Neutrophil # 4.22 X10^3/uL (2.7-7.7); Neutrophil % 65.8 % (47-70); Platelet Count 164 K/mm3 (150-450); RBC Distribution Width CV 13.8 % (11.6-14.6); RBC Distribution Width SD 50.4 fl (35.1-43.9); Red Blood Count 4.88 M/mm3 (4.6-6.2); White Blood Count 6.4 K/mm3 (4.4-11.0)
[2023-03-30 16:00] LABS: Vitamin D,25 Hydroxy 36.2 ng/mL
[2023-03-30 16:10] LABS: ALB/GLOB Ratio 0.9 RATIO (0.9-2.4); AST(SGOT) 9 U/L (15-37); Alanine Aminotransfer ALT/SGPT 25 U/L (16-61); Albumin, Serum 3.5 g/dL (3.2-5.0); Alkaline Phosphatase 72 U/L (45-117); Anion Gap 7 (5-15); BUN 12 mg/dL (7-18); BUN/Creat Ratio 11.4 RATIO (10-20); Calcium,Total 9.1 mg/dL (8.5-10.1); Chloride 106 mmol/L (98-107); Creatinine, Serum 1.05 mg/dL (0.70-1.30); EST Glomerular Filtration Rate 72 mL/min (>60); Est Glom Filt Rate - Afr Amer 87 mL/min (>60); Globulin 3.9 g/dL (2.2-4.2); Glucose 127 mg/dL (74-106); Potassium 4.4 mmol/L (3.5-5.1); Protein, Total 7.4 g/dL (6.4-8.2); Sodium Level 138 mmol/L (136-145); Thyroid Stim Hormone (TSH) 2.18 uIU/mL (0.358-3.74); Uric Acid 3.8 mg/dL (3.5-7.2)
== END | disposition home or self-care (01) ==
LOC: POLAB3 13:12
PROVIDERS: PCP Family Medicine Geriatric Medicine; Visit Provider Family Medicine Geriatric Medicine
DX: E11.65 Type 2 diabetes mellitus with hyperglycemia (principal); I10 Essential (primary) hypertension; M10.9 Gout, unspecified; E55.9 Vitamin D deficiency, unspecified
CPT/HCPCS: 36415; 80053; 82306; 84443; 84550; 85025

== ENCOUNTER → 2023-09-28 | Outpatient (CLI) | payer MEDICARE, SELFPAY ==
[2023-09-28 14:26] LABS: Absolute Lymphocyte Count 1.47 X10^3/uL (0.83-4.51); Absolute Neutrophil Count 4.2 X10^3/uL (2.0-7.7); Basophil# 0.02 X10^3/uL; Basophil% 0.3 % (0-1); Eosinophil# 0.07 X10^3/uL; Eosinophils% 1.1 % (0-5); Hematocrit 49.3 % (40-54); Lymphocyte # 1.47 X10^3/ul (0.83-4.51); Lymphocyte % 23.5 % (19-41); Mean Corp Hgb Conc 32.5 g/dL (32-36); Mean Corpuscular Hgb 33.3 pg (27.0-32.0); Mean Corpuscular Volume 102.7 fL (80-94); Mean Platelet Vol. 11.4 fl (6.2-12.0); Monocyte# 0.49 X10^3/uL; Monocyte% 7.8 % (0-10); NRBC Flagged by Analyzer 0 % (0-5); Neutrophil # 4.17 X10^3/uL (2.7-7.7); Neutrophil % 66.7 % (47-70); Platelet Count 175 K/mm3 (150-450); RBC Distribution Width CV 13.8 % (11.6-14.6); RBC Distribution Width SD 52.8 fl (35.1-43.9); White Blood Count 6.3 K/mm3 (4.4-11.0)
[2023-09-28 14:42] LABS: Vitamin D,25 Hydroxy 35.4 ng/mL
[2023-09-28 14:46] LABS: Hemoglobin A1c 7.9 % (3.8-5.6)
[2023-09-28 14:53] LABS: ALB/GLOB Ratio 1.1 RATIO (0.9-2.4); AST(SGOT) 21 U/L (15-37); Alanine Aminotransfer ALT/SGPT 29 U/L (16-61); Albumin, Serum 3.8 g/dL (3.2-5.0); Alkaline Phosphatase 71 U/L (45-117); Anion Gap 8 (5-15); BUN 16 mg/dL (7-18); BUN/Creat Ratio 14.3 RATIO (10-20); Calcium,Total 9.1 mg/dL (8.5-10.1); Chloride 107 mmol/L (98-107); Cholesterol 106 mg/dL (200); Creatinine, Serum 1.12 mg/dL (0.70-1.30); EST Glomerular Filtration Rate 67 mL/min (>60); Est Glom Filt Rate - Afr Amer 81 mL/min (>60); Globulin 3.6 g/dL (2.2-4.2); Glucose 173 mg/dL (74-106); High Density Lipoprotein 39 mg/dL; Potassium 3.9 mmol/L (3.5-5.1); Protein, Total 7.4 g/dL (6.4-8.2); Sodium Level 141 mmol/L (136-145); Thyroid Stim Hormone (TSH) 3.22 uIU/mL (0.358-3.74); Triglycerides 197 mg/dL; Uric Acid 2.8 mg/dL (3.5-7.2); Very Low Density Lipoprotein 39 mg/dL (5-40)
== END | disposition home or self-care (01) ==
LOC: POLAB3 13:31
PROVIDERS: PCP Family Medicine Geriatric Medicine; Visit Provider Family Medicine Geriatric Medicine
DX: E78.5 Hyperlipidemia, unspecified (principal); E11.65 Type 2 diabetes mellitus with hyperglycemia; I10 Essential (primary) hypertension; M10.9 Gout, unspecified; E55.9 Vitamin D deficiency, unspecified
CPT/HCPCS: 36415; 80053; 80061; 82306; 83036; 84443; 84550; 85025

== ENCOUNTER → 2024-04-03 | Outpatient (CLI) | payer MEDICARE, SELFPAY ==
[2024-04-03 14:22] LABS: Absolute Lymphocyte Count 1.17 X10^3/uL (0.83-4.51); Absolute Neutrophil Count 2.3 X10^3/uL (2.0-7.7); Basophil# 0.01 X10^3/uL; Basophil% 0.2 % (0-1); Eosinophil# 0.13 X10^3/uL; Eosinophils% 3.2 % (0-5); Hematocrit 47.3 % (40-54); Hemoglobin 14.9 g/dL (13.0-16.5); Lymphocyte # 1.17 X10^3/ul (0.83-4.51); Lymphocyte % 28.6 % (19-41); Mean Corp Hgb Conc 31.5 g/dL (32-36); Mean Corpuscular Hgb 32.3 pg (27.0-32.0); Mean Corpuscular Volume 102.6 fL (80-94); Mean Platelet Vol. 11.3 fl (6.2-12.0); Monocyte# 0.43 X10^3/uL; Monocyte% 10.5 % (0-10); NRBC Flagged by Analyzer 0 % (0-5); Neutrophil # 2.33 X10^3/uL (2.7-7.7); Platelet Count 118 K/mm3 (150-450); RBC Distribution Width CV 13.6 % (11.6-14.6); RBC Distribution Width SD 51.7 fl (35.1-43.9); Red Blood Count 4.61 M/mm3 (4.6-6.2); White Blood Count 4.1 K/mm3 (4.4-11.0)
[2024-04-03 15:08] LABS: Hemoglobin A1c 7.4 % (3.8-5.6)
[2024-04-03 15:16] LABS: ALB/GLOB Ratio 0.8 RATIO (0.9-2.4); AST(SGOT) 13 U/L (15-37); Alanine Aminotransfer ALT/SGPT 21 U/L (16-61); Albumin, Serum 3.3 g/dL (3.2-5.0); Alkaline Phosphatase 68 U/L (45-117); Anion Gap 7 (5-15); BUN 15 mg/dL (7-18); BUN/Creat Ratio 13.6 RATIO (10-20); Calcium,Total 9.3 mg/dL (8.5-10.1); Chloride 110 mmol/L (98-107); Cholesterol 87 mg/dL (200); EST Glomerular Filtration Rate 68 mL/min (>60); Est Glom Filt Rate - Afr Amer 82 mL/min (>60); Globulin 3.9 g/dL (2.2-4.2); Glucose 146 mg/dL (74-106); High Density Lipoprotein 32 mg/dL; Potassium 4.2 mmol/L (3.5-5.1); Protein, Total 7.2 g/dL (6.4-8.2); Sodium Level 143 mmol/L (136-145); Triglycerides 100 mg/dL; Uric Acid 2.5 mg/dL (3.5-7.2); Very Low Density Lipoprotein 20 mg/dL (5-40)
[2024-04-03 15:41] LABS: Vitamin D,25 Hydroxy 35.2 ng/mL
== END | disposition home or self-care (01) ==
LOC: POLAB3 13:44
PROVIDERS: PCP Family Medicine Geriatric Medicine; Visit Provider Family Medicine Geriatric Medicine
DX: E78.5 Hyperlipidemia, unspecified (principal); E11.65 Type 2 diabetes mellitus with hyperglycemia; I10 Essential (primary) hypertension; M10.9 Gout, unspecified; E55.9 Vitamin D deficiency, unspecified; R68.83 Chills (without fever)
CPT/HCPCS: 36415; 80053; 80061; 82306; 83036; 84443; 84550; 85025; 87631

== ENCOUNTER → 2024-10-01 | Outpatient (CLI) | payer MEDICARE, SELFPAY ==
[2024-10-01 12:16] LABS: Absolute Lymphocyte Count 1.37 X10^3/uL (0.83-4.51); Absolute Neutrophil Count 4.1 X10^3/uL (2.0-7.7); Basophil# 0.05 X10^3/uL; Basophil% 0.8 % (0-1); Eosinophil# 0.08 X10^3/uL; Eosinophils% 1.3 % (0-5); Hematocrit 48.1 % (40-54); Hemoglobin 15.6 g/dL (13.0-16.5); Lymphocyte # 1.37 X10^3/ul (0.83-4.51); Lymphocyte % 22.9 % (19-41); Mean Corp Hgb Conc 32.4 g/dL (32-36); Mean Corpuscular Hgb 33.4 pg (27.0-32.0); Mean Platelet Vol. 11.4 fl (6.2-12.0); Monocyte# 0.41 X10^3/uL; Monocyte% 6.8 % (0-10); NRBC Flagged by Analyzer 0 % (0-5); Neutrophil # 4.06 X10^3/uL (2.7-7.7); Neutrophil % 67.9 % (47-70); Platelet Count 165 K/mm3 (150-450); RBC Distribution Width CV 13.9 % (11.6-14.6); RBC Distribution Width SD 53.1 fl (35.1-43.9); Red Blood Count 4.67 M/mm3 (4.6-6.2)
[2024-10-01 13:13] LABS: ALB/GLOB Ratio 1.5 RATIO (0.9-2.4); AST(SGOT) 15 U/L (<=37); Alanine Aminotransfer ALT/SGPT 10 U/L (<=46); Albumin, Serum 4.1 g/dL (3.4-4.8); Alkaline Phosphatase 64 U/L (40-129); Anion Gap 11 (5-15); BUN 14 mg/dL (4-19); Calcium,Total 9.5 mg/dL (7.6-11.0); Carbon Dioxide 24.1 mmol/L (21.0-32.0); Chloride 106 mmol/L (98-108); Cholesterol 92 mg/dL (<=200); Creatinine, Serum 0.84 mg/dL (0.70-1.20); EST Glomerular Filtration Rate 87 (>60); Globulin 2.7 g/dL (2.2-4.2); Glucose 183 mg/dL (70-99); High Density Lipoprotein 41 mg/dL; Low Density Lipoprotein Calc. 32 mg/dL; Potassium 4.7 mmol/L (3.3-5.1); Protein, Total 6.8 g/dL (5.9-8.4); Sodium Level 140 mmol/L (133-145); Total Bilirubin 0.65 mg/dL (0.00-1.30); Triglycerides 94 mg/dL; Very Low Density Lipoprotein 19 mg/dL (5-40); cholesterol:hdl ratio screen 2.22
[2024-10-01 15:30] LABS: Hemoglobin A1c 8.8 % (<=5.6)
== END | disposition home or self-care (01) ==
LOC: POLAB3 11:32
PROVIDERS: PCP Family Medicine Geriatric Medicine; Referring Provider Family Medicine Geriatric Medicine; Visit Provider Family Medicine Geriatric Medicine
DX: E78.5 Hyperlipidemia, unspecified (principal); E11.65 Type 2 diabetes mellitus with hyperglycemia; I10 Essential (primary) hypertension; M10.9 Gout, unspecified; E55.9 Vitamin D deficiency, unspecified
CPT/HCPCS: 36415; 80053; 80061; 82306; 83036; 84443; 84550; 85025

== ENCOUNTER → 2025-04-04 | Outpatient (CLI) | payer MEDICARE, SELFPAY ==
--- OUTSIDE RECORDS SUMMARY | 2025-04-04 12:19 | XMS RPT_ITS | CCD ---
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 [facility] Serum globulin measurementOr dered By: Lorne Mg on 10-01-2024 Globulin (S) [Mass/Vol] 2.7 g/dL 2.2-4.2 [facility] Serum glucose measurement (m ass/volume)Ordered By: Lorne Mg on 10-01-2024 Glucose [Mass/Vol] 183 mg/dL High 70-99 [facility] Serum or plasma alanine colbert otransferase (ALT) measurementOrdered By: Lorne Mg 10-01-2024 ALT [Catalytic activity/Vol] 10 U/L <47 [facility] Serum or plasma albumin paulino urement (mass/volume)Ordered By: Lorne Haritha 10-01-2024 Albumin [Mass/Vol] 4.1 g/dL 3.4-4.8 [facility] Serum or plasma albumin/glob ulin mass ratioOrdered By: Lorne Haritha 10-01-2024 Albumin/Globulin [Mass ratio] 1.5 {ratio} 0.9-2.4 [facility] Serum or plasma alkaline nayeli sphatase measurementOrdered By: Lorne Mg 10-01-2024 ALP [Catalytic activity/Vol] 64 U/L 40-129 [facility] Serum or plasma calcium paulino urement (mass/volume)Ordered By: Lorne Haritha 10-01-2024 Calcium [Mass/Vol] 9.5 mg/dL 7.6-11.0 [facility] Serum or plasma cholesterol in HDL measurement (mass/volume)Ordered By: Lorne Haritha 10-01-2024 Cholesterol in HDL [Mass/Vol] 41 mg/dL >40 [facility] Comment on above: National Cholesterol Education Program (NCEP) guidelines:<40 mg/dL: Low HDL-cholesterol (major risk factor for CHD)>= 60 mg/dL: High HDL-cholesterol (negative risk factor for CHD)HDL-cholesterol is affected by a number of factors, e.g. smoking, exercise, hormones, sex and age. Serum or plasma cholesterol measurement (mass/volume)Ordered By: Lorne Haritha 10-01-2024 Cholesterol [Mass/Vol] 92 mg/dL <201 [facility] Comment on above: Cholesterol level, D esirable <200 mg/dLBorderline high cholesterol 200-239 mg/dLHigh cholesterol >=240 mg/dLRecommendations of the NCEP Adult Treatment Panel for the following risk-cutoff thresholds for the [place] population. Serum or plasma urea nitroge n measurement (mass/volume)Ordered By: Lorne Haritha 10-01-2024 Urea nitrogen [Mass/Vol] 14 mg/dL 4-19 [facility] Serum or plasma uric acid me asurement (mass/volume)Ordered By: Lorne Mg on 10-01-2024 Urate [Mass/Vol] 2.0 mg/dL Low 3.5-7.2 [facility] Comment on above: The drugs N-Acetylcy steine and Metamizole may falsely depress this assay. Sodium levelOrdered By: Lorne Mg on 10-01-2024 Sodium [Moles/Vol] 140 mmol/L 133-145 [facility] TSH DL <= 0.005 mIU/L QnOrde red By: Lorne Mg on 10-01-2024 Thyroid Stimulating Hormone (TSH) 2.260 uIU/mL 0.300-4.200 [facility] Thyroid Stim Hormone (TSH)on 10-01-2024 TSH 2.260 uIU/mL Normal 0.300-4.200 [facility] Comment on above: Performed By: #### L 506.1001, L501.1400, L100.0100, L500.4100, L501.9985, L500.4050, L501.9520 #### [facility] [place], [address] Total proteinOrdered By: Lorne Mg on 10-01-2024 Protein [Mass/Vol] 6.8 g/dL 5.9-8.4 [facility] Triglycerides measurementOrd ered By: Lorne Mg on 10-01-2024 Triglyceride [Mass/Vol] 94 mg/dL <199 [facility] Comment on above: The drugs N-Acetylcy steine and Metamizole may falsely depress this assay. Normal range: <150 mg/dLBorderline High: 150-199 mg/dLHigh: 200-499 mg/dLVery High: >500 mg/dL Uric Acidon 10-01-2024 URIC 2.0 mg/dL Low 3.5-7.2 [facility] Comment on above: Result Comment: The drugs N-Acetylcysteine and Metamizole may falsely depress this assay. Performed By: #### L 506.1001, L501.1400, L100.0100, L500.4100, L501.9985, L500.4050, L501.9520 #### [facility] [address] [place], [address] Vitamin D, 25-hydroxyOrdered By: Lorne Mg on 10-01-2024 Vitamin D 25-Hydroxy 24.0 ng/mL Low 30-100 [facility] Comment on above: Vitamin D StatusDefi ciency: <20 ng/mL (50nmol/L)Insufficiency: 20-30 ng/mL (50-75 nmol/L)Sufficiency: 30-100 ng/mL (75-250 nmol/L)Toxicity: >100 ng/mL (>250 nmol/L) White blood cell (WBC) count Ordered By: Lorne Mg on 10-01-2024 WBC (Bld) [#/Vol] 6.0 10*3/uL 4.4-11.0 [facility] CBC W/Diff, Automatedon 09-2 Absolute Lymph 1.17 X10 3/uL Normal 0.83-4.51 [facility] Comment on above: Performed By: #### L 501.9520, L100.0100, L501.1400, M100.678, L506.1000, L501.9985, L500.4050, L500.4100 #### [facility] [address] [place], [address] Absolute Neut 2.3 X10 3/uL Normal 2.0-7.7 [facility] Comment on above: Performed By: #### L 501.9520, L100.0100, L501.1400, M100.678, L506.1000, L501.9985, L500.4050, L500.4100 #### [facility] [address] [place], [address] Basophils/100 WBC (Bld) 0.2 % Normal 0-1 [facility] Comment on above: Performed By: #### L 501.9520, L100.0100, L501.1400, M100.678, L506.1000, L501.9985, L500.4050, L500.4100 #### [facility] [address] [place], [address] Eosinophils/100 WBC (Bld) 3.2 % Normal 0-5 [facility] Comment on above: Performed By: #### L 501.9520, L100.0100, L501.1400, M100.678, L506.1000, L501.9985, L500.4050, L500.4100 #### [facility] [address] [place], [address] Erythrocyte distribution width (RBC) [Ratio] 13.6 % Normal 11.6-14.6 [facility] Comment on above: Performed By: #### L 501.9520, L100.0100, L501.1400, M100.678, L506.1000, L501.9985, L500.4050, L500.4100 #### [facility] [address] [place], [address] Hematocrit (Bld) [Volume fraction] 47.3 % Normal 40-54 [facility] Comment on above: Performed By: #### L 501.9520, L100.0100, L501.1400, M100.678, L506.1000, L501.9985, L500.4050, L500.4100 #### [facility] [address] [place], [address] Hemoglobin (Bld) [Mass/Vol] 14.9 g/dL Normal 13.0-16.5 [facility] Comment on above: Performed By: #### L 501.9520, L100.0100, L501.1400, M100.678, L506.1000, L501.9985, L500.4050, L500.4100 #### [facility] [address] [place], [address] IG% 0.500 Normal 0.0-0.9 [facility] Comment on above: Result Comment: IG% - Immature Granulocytes (promyelocytes, myelocytes and metamyelocytes) > 1% indicates that a LEFT SHIFT is Present. Performed By: #### L 501.9520, L100.0100, L501.1400, M100.678, L506.1000, L501.9985, L500.4050, L500.4100 #### [facility] [address] [place], [address] Lymphocytes/100 WBC (Bld) 28.6 % Normal 19-41 [facility] Comment on above: Performed By: #### L 501.9520, L100.0100, L501.1400, M100.678, L506.1000, L501.9985, L500.4050, L500.4100 #### [facility] [address] [place], [address] MCH (RBC) [Entitic mass] 32.3 pg High 27.0-32.0 [facility] Comment on above: Performed By: #### L 501.9520, L100.0100, L501.1400, M100.678, L506.1000, L501.9985, L500.4050, L500.4100 #### [facility] [address] [facility] [place], [address] MCHC (RBC) [Mass/Vol] 31.5 g/dL Low 32-36 [facility] Comment on above: Performed By: #### L 501.9520, L100.0100, L501.1400, M100.678, L506.1000, L501.9985, L500.4050, L500.4100 #### [facility] [address] [place], [address] MCV (RBC) [Entitic vol] 102.6 fL High 80-94 [facility] Comment on above: Performed By: #### L 501.9520, L100.0100, L501.1400, M100.678, L506.1000, L501.9985, L500.4050, L500.4100 #### [facility] [address] [place], [address] Monocytes/100 WBC (Bld) 10.5 % High 0-10 [facility] Comment on above: Performed By: #### L 501.9520, L100.0100, L501.1400, M100.678, L506.1000, L501.9985, L500.4050, L500.4100 #### [facility] [address] [place], [address] Neutrophils/100 WBC (Bld) 57.0 % Normal 47-70 [facility] Comment on above: Performed By: #### L 501.9520, L100.0100, L501.1400, M100.678, L506.1000, L501.9985, L500.4050, L500.4100 #### [facility] [address] [place], [address] Nucleated RBC (Bld) [#/Vol] 0 10*3/uL Normal 0-5 [facility] Comment on above: Performed By: #### L 501.9520, L100.0100, L501.1400, M100.678, L506.1000, L501.9985, L500.4050, L500.4100 #### [facility] [address] [place], [address] Platelet mean volume (Bld) [Entitic vol] 11.3 fL Normal 6.2-12.0 [facility] Comment on above: Performed By: #### L 501.9520, L100.0100, L501.1400, M100.678, L506.1000, L501.9985, L500.4050, L500.4100 #### [facility] [address] [place], [address] Platelets (Bld) [#/Vol] 118 10*3/uL Low 150-450 [facility] Comment on above: Performed By: #### L 501.9520, L100.0100, L501.1400, M100.678, L506.1000, L501.9985, L500.4050, L500.4100 #### [facility] [address] [place], [address] RBC (Bld) [#/Vol] 4.61 10*6/uL Normal 4.6-6.2 [facility] Comment on above: Performed By: #### L 501.9520, L100.0100, L501.1400, M100.678, L506.1000, L501.9985, L500.4050, L500.4100 #### [facility] [address] [place], [address] RDW SD 51.7 fl High 35.1-43.9 [facility] Comment on above: Performed By: #### L 501.9520, L100.0100, L501.1400, M100.678, L506.1000, L501.9985, L500.4050, L500.4100 #### [facility] [address] [place], [address] WBC (Bld) [#/Vol] 4.1 10*3/uL Low 4.4-11.0 [facility] Comment on above: Performed By: #### L 501.9520, L100.0100, L501.1400, M100.678, L506.1000, L501.9985, L500.4050, L500.4100 #### [facility] [address] [place], [address] Comprehensive Metabolic Prof [facility] 04-03-2024 Albumin [Mass/Vol] 3.3 g/dL Normal 3.2-5.0 [facility] Comment on above: Performed By: #### L 506.1001, L501.1400, L100.0100, L500.4100, L501.9985, L500.4050, L501.9520 #### [facility] [address] [place], [address] Albumin/Globulin [Mass ratio] 0.8 {ratio} Low 0.9-2.4 [facility] Comment on above: Performed By: #### L 506.1001, L501.1400, L100.0100, L500.4100, L501.9985, L500.4050, L501.9520 #### [facility] [address] [place], [address] ALK P 68 U/L Normal 45-117 [facility] Comment on above: Performed By: #### L 506.1001, L501.1400, L100.0100, L500.4100, L501.9985, L500.4050, L501.9520 #### [facility] [address] [place], [address] ALT [Catalytic activity/Vol] 21 U/L Normal 16-61 [facility] Comment on above: Performed By: #### L 506.1001, L501.1400, L100.0100, L500.4100, L501.9985, L500.4050, L501.9520 #### [facility] [address] [place], [address] AST [Catalytic activity/Vol] 13 U/L Low 15-37 [facility] Comment on above: Performed By: #### L 506.1001, L501.1400, L100.0100, L500.4100, L501.9985, L500.4050, L501.9520 #### [facility] [address] [place], [address] Bilirubin [Mass/Vol] 0.80 mg/dL Normal 0.20-1.00 [facility] Comment on above: Result Comment: For patients on eltrombopag therapy, use of Dimension [place] TBIL is not recommended. Performed By: #### L 506.1001, L501.1400, L100.0100, L500.4100, L501.9985, L500.4050, L501.9520 #### [facility] [address] [place], [address] BUN/CRE 13.6 RATIO Normal 10-20 [facility] Comment on above: Performed By: #### L 506.1001, L501.1400, L100.0100, L500.4100, L501.9985, L500.4050, L501.9520 #### [facility] [address] [place], [address] CA,Total 9.3 mg/dL Normal 8.5-10.1 [facility] Comment on above: Performed By: #### L 506.1001, L501.1400, L100.0100, L500.4100, L501.9985, L500.4050, L501.9520 #### [facility] [address] [place], [address] Chloride [Moles/Vol] 110 mmol/L High 98-107 [facility] Comment on above: Performed By: #### L 506.1001, L501.1400, L100.0100, L500.4100, L501.9985, L500.4050, L501.9520 #### [facility] [address] [place], [address] CO2 [Moles/Vol] 26.0 mmol/L Normal 21.0-32.0 [facility] Comment on above: Performed By: #### L 506.1001, L501.1400, L100.0100, L500.4100, L501.9985, L500.4050, L501.9520 #### [facility] [address] [place], [address] Creatinine [Mass/Vol] 1.10 mg/dL Normal 0.70-1.30 [facility] Comment on above: Result Comment: The validity of the calculated GFR GFRAA in patients over 70 years has not been determined. Clinical correlation is essential. Performed By: #### L 506.1001, L501.1400, L100.0100, L500.4100, L501.9985, L500.4050, L501.9520 #### [facility] [address] [place], [place], [id number] (773) EST GFR - AA 82 mL/min Normal >60 [facility] Comment on above: Result Comment: Afri can [place] GFR Calc Performed By: #### L 506.1001, L501.1400, L100.0100, L500.4100, L501.9985, L500.4050, L501.9520 #### [facility] [address] [place], [place], [id number] (168) GAP 7 Normal 5-15 [facility] Comment on above: Performed By: #### L 506.1001, L501.1400, L100.0100, L500.4100, L501.9985, L500.4050, L501.9520 #### [facility] [address] [place], [place], [id number] (141) GFR/1.73 sq M.predicted among non-blacks MDRD (S/P/Bld) [Vol rate/Area] 68 mL/min/{1.73_m2} Normal >60 [facility] Comment on above: Result Comment: Non- GFR Calc Performed By: #### L 506.1001, L501.1400, L100.0100, L500.4100, L501.9985, L500.4050, L501.9520 #### [facility] [address] [place], [place], [id number] (251) Globulin (S) [Mass/Vol] 3.9 g/dL Normal 2.2-4.2 [facility] Comment on above: Performed By: #### L 506.1001, L501.1400, L100.0100, L500.4100, L501.9985, L500.4050, L501.9520 #### [facility] [address] [place], [address] Glucose [Mass/Vol] 146 mg/dL High 74-106 [facility] Comment on above: Result Comment: Fast ing Glucose result greater than or equal to 126 mg/dL suggests DIABETES MELLITUS per A.D.A. criteria. Performed By: #### L 506.1001, L501.1400, L100.0100, L500.4100, L501.9985, L500.4050, L501.9520 #### [facility] [address] [place], [address] Potassium [Moles/Vol] 4.2 mmol/L Normal 3.5-5.1 [facility] Comment on above: Performed By: #### L 506.1001, L501.1400, L100.0100, L500.4100, L501.9985, L500.4050, L501.9520 #### [facility] [address] [place], [address] Sodium [Moles/Vol] 143 mmol/L Normal 136-145 [facility] Comment on above: Performed By: #### L 506.1001, L501.1400, L100.0100, L500.4100, L501.9985, L500.4050, L501.9520 #### [facility] [address] [place], [address] T PROT 7.2 g/dL Normal 6.4-8.2 [facility] Comment on above: Performed By: #### L 506.1001, L501.1400, L100.0100, L500.4100, L501.9985, L500.4050, L501.9520 #### [facility] [address] [place], [address] Urea nitrogen [Mass/Vol] 15 mg/dL Normal 7-18 [facility] Comment on above: Performed By: #### L 506.1001, L501.1400, L100.0100, L500.4100, L501.9985, L500.4050, L501.9520 #### [facility] [address] [place], [address] Hemoglobin A1con 04-03-2024 HbA1c (Bld) [Mass fraction] 7.4 % High 3.8-5.6 [facility] Comment on above: Result Comment: Norm al < 5.7 % Prediabetic 5.7 - 6.4 % Diabetic >or= 6.5 % Please note range changes. Performed By: #### L 501.9520, L100.0100, L501.1400, M100.678, L506.1000, L501.9985, L500.4050, L500.4100 #### [facility] [address] [place], [address] Lipid Profileon 04-03-2024 Cholesterol [Mass/Vol] 87 mg/dL Normal 200 [facility] Comment on above: Result Comment: <200 mg/dL Desirable 200-240 mg/dL Borderline >240 mg/dL High Risk Performed By: #### L 506.1001, L501.1400, L100.0100, L500.4100, L501.9985, L500.4050, L501.9520 #### [facility] [address] [place], [address] Cholesterol in HDL [Mass/Vol] 32 mg/dL Low [facility] Comment on above: Result Comment: The drugs N-Acetylcysteine and Metamizole may falsely depress this assay. Reference Range HDL <40 mg/dL Low HDL Cholesterol HDL >or= 60 mg/dL High HDL Cholesterol Performed By: #### L 506.1001, L501.1400, L100.0100, L500.4100, L501.9985, L500.4050, L501.9520 #### [facility] [address] [place], [address] Cholesterol in LDL [Mass/Vol] 35 mg/dL Normal 0-130 [facility] Comment on above: Performed By: #### L 506.1001, L501.1400, L100.0100, L500.4100, L501.9985, L500.4050, L501.9520 #### [facility] [address] [place], [address] Cholesterol in VLDL [Mass/Vol] 20 mg/dL Normal 5-40 [facility] Comment on above: Performed By: #### L 506.1001, L501.1400, L100.0100, L500.4100, L501.9985, L500.4050, L501.9520 #### [facility] [address] [place], [address] Triglyceride [Mass/Vol] 100 mg/dL Normal [facility] Comment on above: Result Comment: The drugs N-Acetylcysteine and Metamizole may falsely depress this assay. Serum Triglycerides Reference Interval Normal <150 mg/dL Borderline high 150 - 199 mg/dL High 200 - 499 mg/dL Very High > or = 500 mg/dL Performed By: #### L 506.1001, L501.1400, L100.0100, L500.4100, L501.9985, L500.4050, L501.9520 #### [facility] [address] [place], [address] M100.678on 04-03-2024 M100.678 Copy of report sent to Infection Control [facility]inter [id number] 04/03/24 1515 SANDRA. SARS-CoV-2 (COVID 19) A Positive A INFLUENZA A Negative INFLUENZA B Negative RSV PCR Negative SARS-CoV-2 (COVID 19 PCR) Normal [facility] Comment on above: Performed By: #### L 501.9520, L100.0100, L501.1400, M100.678, L506.1000, L501.9985, L500.4050, L500.4100 #### [facility] [address] [place], [address] Thyroid Stim Hormone (TSH)on 04-03-2024 TSH 2.660 uIU/mL Normal 0.358-3.740 [facility] Comment on above: Performed By: #### L 506.1001, L501.1400, L100.0100, L500.4100, L501.9985, L500.4050, L501.9520 #### [facility] [address] [place], [address] Uric Acidon 04-03-2024 URIC 2.5 mg/dL Low 3.5-7.2 [facility] Comment on above: Result Comment: The drugs N-Acetylcysteine and Metamizole may falsely depress this assay. Performed By: #### L 506.1001, L501.1400, L100.0100, L500.4100, L501.9985, L500.4050, L501.9520 #### [facility] [address] [place], [address] Vitamin D,25 Hydroxyon 04-03 Vitamin D 25-OH 35.2 ng/mL Normal [facility] Comment on above: Result Comment: Shania min D 25(OH) Status Range Deficiency <20 ng/mL (50nmol/L) Insufficiency 20 - 30 ng/mL (50 - 75 nmol/L) Sufficiency 30 - 100 ng/mL (75 - 250 nmol/L) Toxicity >100 ng/mL (>250 nmol/L) Performed By: #### L 506.1001, L501.1400, L100.0100, L500.4100, L501.9985, L500.4050, L501.9520 #### [facility] [address] [place], [address] Absolute lymphocyte countOrd ered By: Lorne Mg on 09-28-2023 Lymphocytes Auto (Unsp spec) [#/Vol] 1.47 10*3/uL 0.83-4.51 [facility] Automated lymphocyte count a s percentage of total leukocytesOrdered By: Lorne Mg on 09-28-2023 Lymphocytes/100 WBC Auto (Unsp spec) 23.5 % 19-41 [facility] Basophil percentageOrdered B y: Lorne Mg on 09-28-2023 Basophils/100 WBC (Bld) 0.3 % 0-1 [facility] Bilirubin [Mass/Vol] 0.60 mg/dL 0.20-1.00 [facility] Comment on above: For patients on eltr ombopag therapy, use of Dimension [place] TBIL is not recommended. Chloride [Moles/Vol] 107 mmol/L 98-107 [facility] Cholesterol [Mass/Vol] 106 mg/dL <200 [facility] Comment on above: <200 mg/dL Desirable 200-240 mg/dL Borderline >240 mg/dL High Risk Eosinophils/100 WBC (Bld) 1.1 % 0-5 [facility] Glucose [Mass/Vol] 173 mg/dL 74-106 [facility] Comment on above: Fasting Glucose resu lt greater than or equal to 126 mg/dL suggests DIABETES MELLITUS per A.D.A. criteria. Hemoglobin (Bld) [Mass/Vol] 16.0 g/dL 13.0-16.5 [facility] Monocytes/100 WBC (Bld) 7.8 % 0-10 [facility] Neutrophils (Bld) [#/Vol] 4.2 10*3/uL 2.0-7.7 [facility] Neutrophils/100 WBC (Bld) 66.7 % 47-70 [facility] Potassium [Moles/Vol] 3.9 mmol/L 3.5-5.1 [facility] Protein [Mass/Vol] 7.4 g/dL 6.4-8.2 [facility] Sodium [Moles/Vol] 141 mmol/L 136-145 [facility] Triglyceride [Mass/Vol] 197 mg/dL <199 [facility] Comment on above: The drugs N-Acetylcy steine and Metamizole may falsely depress this assay.Serum Triglycerides Reference Interval Normal <150 mg/dL Borderline high 150 - 199 mg/dL High 200 - 499 mg/dL Very High > or = 500 mg/dL WBC (Bld) [#/Vol] 6.3 10*3/uL 4.4-11.0 [facility] Determination of erythrocyte mean corpuscular volume (MCV)Ordered By: Lorne Mg on 09-28-2023 MCV (RBC) [Entitic vol] 102.7 fL 80-94 [facility] Erythrocyte distribution wid th ratioOrdered By: [facility] on 09-28-2023 Erythrocyte distribution width (RBC) [Ratio] 13.8 % 11.6-14.6 [facility] Erythrocyte distribution wid th standard deviationOrdered By: [facility] on 09-28-2023 Erythrocyte distribution width (RBC) [Entitic vol] 52.8 fL 35.1-43.9 [facility] Hematocrit Auto (Bld) [Volum e fraction]Ordered By: [facility] 09-28-2023 Hematocrit (Bld) [Volume fraction] 49.3 % 40-54 [facility] Immature granulocytes/100 WB C Auto (Bld)Ordered By: [facility] 09-28-2023 Immature granulocytes/100 WBC (Bld) 0.600 % 0.0-0.9 [facility] Comment on above: IG% - Immature Granu locytes (promyelocytes, myelocytes and metamyelocytes) > 1% indicates that a LEFT SHIFT is Present. Laboratory - Chemistry and C hemistry - challengeOrdered By: [facility] 09-28-2023 Albumin/Globulin [Mass ratio] 1.1 {ratio} 0.9-2.4 [facility] ALP [Catalytic activity/Vol] 71 U/L 45-117 [facility] ALT [Catalytic activity/Vol] 29 U/L 16-61 [facility] Cholesterol in HDL [Mass/Vol] 39 mg/dL >40 [facility] Comment on above: The drugs N-Acetylcy steine and Metamizole may falsely depress this assay. Reference Range HDL <40 mg/dL Low HDL Cholesterol HDL >or= 60 mg/dL High HDL Cholesterol Cholesterol in LDL [Mass/Vol] 28 mg/dL 0-130 [facility] CO2 [Moles/Vol] 26.0 mmol/L 21.0-32.0 [facility] Globulin (S) [Mass/Vol] 3.6 g/dL 2.2-4.2 [facility] Urea nitrogen/Creatinine [Mass ratio] 14.3 mg/mg 10-20 [facility] - Hematology and Cell countsOrdered By: Lorne Mg on 09-28-2023 MCH (RBC) [Entitic mass] 33.3 pg 27.0-32.0 [facility] MCHC (RBC) [Mass/Vol] 32.5 g/dL 32-36 [facility] Nucleated RBC/100 WBC (Bld) [Ratio] 0 % 0-5 [facility] Platelet mean volume (Bld) [Entitic vol] 11.4 fL 6.2-12.0 [facility] Platelets (Bld) [#/Vol] 175 10*3/uL 150-450 [facility] No Panel InformationOrdered By: Lorne Mg on 09-28-2023 Estimated GFR (MDRD) Amer 81 mL/min >60 [facility] Comment on above: GFR Calc Estimated GFR (MDRD) Non-Af Amer 67 mL/min >60 [facility] Comment on above: Non- GFR Calc Vitamin D 25-Hydroxy 35.4 ng/mL [facility] Comment on above: Vitamin D 25(OH) Sta tus Range Deficiency <20 ng/mL (50nmol/L) Insufficiency 20 - 30 ng/mL (50 - 75 nmol/L) Sufficiency 30 - 100 ng/mL (75 - 250 nmol/L) Toxicity >100 ng/mL (>250 nmol/L) VLDL Cholesterol 39 mg/dL 5-40 [facility] RBC Auto (Bld) [#/Vol]Ordere d By: Lorne Mg on 09-28-2023 RBC (Bld) [#/Vol] 4.80 10*6/uL 4.6-6.2 [facility] Serum or plasma calcium paulino urement (mass/volume)Ordered By: Lorne Mg on 09-28-2023 Calcium [Mass/Vol] 9.1 mg/dL 8.5-10.1 [facility] Serum or plasma creatinine m easurement (mass/volume)Ordered By: Lorne Mg on 09-28-2023 Creatinine [Mass/Vol] 1.12 mg/dL 0.70-1.30 [facility] Comment on above: The validity of the calculated GFR & GFRAA in patients over 70 years has not been determined. Clinical correlation is essential. Serum or plasma thyroid stim ulating hormone (TSH) measurement (units/volume)Ordered By: Lorne Mg on 09-28-2023 TSH Qn 3.22 uIU/mL 0.358-3.74 [facility] Serum or plasma urea nitroge n measurement (mass/volume)Ordered By: Lorne Haritha on 09-28-2023 Urea nitrogen [Mass/Vol] 16 mg/dL 7-18 [facility] Serum or plasma uric acid me asurement (mass/volume)Ordered By: Lorne Mg on 09-28-2023 Urate [Mass/Vol] 2.8 mg/dL 3.5-7.2 [facility] Comment on above: The drugs N-Acetylcy steine and Metamizole may falsely depress this assay. Thin prep Papanicolaou smear with manual screeningOrdered By: Lorne Mg on 09-28-2023 Thin prep Papanicolaou smear with manual screening 3.8 g/dL 3.2-5.0 [facility] Thin prep Papanicolaou smear with manual screening 21 U/L 15-37 [facility] Thin prep Papanicolaou smear with manual screening 8 5-15 [facility] Whole blood hemoglobin A1c/t otal hemoglobin ratio (mass fraction)Ordered By: Lorne Mg on 09-28-2023 HbA1c (Bld) [Mass fraction] 7.9 % 3.8-5.6 [facility] Comment on above: Normal < 5.7 % Predi abetic 5.7 - 6.4 % Diabetic >or= 6.5 % Please note range changes. Absolute lymphocyte countOrd ered By: Lorne Mg on 03-30-2023 Lymphocytes Auto (Unsp spec) [#/Vol] 1.46 10*3/uL 0.83-4.51 [facility] Basophil percentageOrdered B y: Lorne Mg on 03-30-2023 Basophils/100 WBC (Bld) 0.5 % 0-1 [facility] Bilirubin [Mass/Vol] 0.50 mg/dL 0.20-1.00 [facility] Comment on above: For patients on eltr ombopag therapy, use of Dimension [place] TBIL is not recommended. Chloride [Moles/Vol] 106 mmol/L 98-107 [facility] Eosinophils/100 WBC (Bld) 2.0 % 0-5 [facility] Glucose [Mass/Vol] 127 mg/dL 74-106 [facility] Comment on above: Fasting Glucose resu lt greater than or equal to 126 mg/dL suggests DIABETES MELLITUS per A.D.A. criteria. Neutrophils (Bld) [#/Vol] 4.2 10*3/uL 2.0-7.7 [facility] Neutrophils/100 WBC (Bld) 65.8 % 47-70 [facility] Potassium [Moles/Vol] 4.4 mmol/L 3.5-5.1 [facility] Protein [Mass/Vol] 7.4 g/dL 6.4-8.2 [facility] Sodium [Moles/Vol] 138 mmol/L 136-145 [facility] WBC (Bld) [#/Vol] 6.4 10*3/uL 4.4-11.0 [facility] Blood erythrocytes count (nu mber/volume)Ordered By: Lorne Mg on 03-30-2023 RBC (Bld) [#/Vol] 4.88 10*6/uL 4.6-6.2 [facility] Blood hemoglobin measurement (mass/volume)Ordered By: Lorne Mg on 03-30-2023 Hemoglobin (Bld) [Mass/Vol] 15.9 g/dL 13.0-16.5 [facility] Blood lymphocytes/100 leukoc ytesOrdered By: Lorne Mg on 03-30-2023 Lymphocytes/100 WBC (Bld) 22.8 % 19-41 [facility] Blood monocytes/100 leukocyt esOrdered By: Lorne Mg on 03-30-2023 Monocytes/100 WBC (Bld) 8.0 % 0-10 [facility] Blood platelet mean volumeOr dered By: Lorne Mg on 03-30-2023 Platelet mean volume (Bld) [Entitic vol] 11.2 fL 6.2-12.0 [facility] Determination of erythrocyte mean corpuscular volume (MCV)Ordered By: Lorne Mg on 03-30-2023 MCV (RBC) [Entitic vol] 99.8 fL 80-94 [facility] Hematocrit Auto (Bld) [Volum e fraction]Ordered By: Lorne Mg on 03-30-2023 Hematocrit (Bld) [Volume fraction] 48.7 % 40-54 [facility] - Chemistry and C hemistry - challengeOrdered By: Lorne Haritha on 03-30-2023 ALP [Catalytic activity/Vol] 72 U/L 45-117 [facility] ALT [Catalytic activity/Vol] 25 U/L 16-61 [facility] CO2 [Moles/Vol] 25.0 mmol/L 21.0-32.0 [facility] Globulin (S) [Mass/Vol] 3.9 g/dL 2.2-4.2 [facility] Urea nitrogen/Creatinine [Mass ratio] 11.4 mg/mg 10-20 [facility] - Hematology and Cell countsOrdered By: [facility] on 03-30-2023 Erythrocyte distribution width (RBC) [Entitic vol] 50.4 fL 35.1-43.9 [facility] Erythrocyte distribution width (RBC) [Ratio] 13.8 % 11.6-14.6 [facility] Immature granulocytes/100 WBC (Bld) 0.900 % 0.0-0.9 [facility] Comment on above: IG% - Immature Granu locytes (promyelocytes, myelocytes and metamyelocytes) > 1% indicates that a LEFT SHIFT is Present. MCH (RBC) [Entitic mass] 32.6 pg 27.0-32.0 [facility] Nucleated RBC/100 WBC (Bld) [Ratio] 0 % 0-5 [facility] MCHC Auto (RBC) [Mass/Vol]Or dered By: Lorne Mg on 03-30-2023 MCHC (RBC) [Mass/Vol] 32.6 g/dL 32-36 [facility] No Panel InformationOrdered By: Lorne Haritha on 03-30-2023 Estimated GFR (MDRD) Amer 87 mL/min >60 [facility] Comment on above: GFR Calc Estimated GFR (MDRD) Non-Af Amer 72 mL/min >60 [facility] Comment on above: Non- GFR Calc Thyroid Stimulating Hormone (TSH) 2.18 uIU/mL 0.358-3.74 [facility] Vitamin D 25-Hydroxy 36.2 ng/mL [facility] Comment on above: Vitamin D 25(OH) Sta tus Range Deficiency <20 ng/mL (50nmol/L) Insufficiency 20 - 30 ng/mL (50 - 75 nmol/L) Sufficiency 30 - 100 ng/mL (75 - 250 nmol/L) Toxicity >100 ng/mL (>250 nmol/L) Platelets bldOrdered By: Lorne Mg on 03-30-2023 Platelets (Bld) [#/Vol] 164 10*3/uL 150-450 [facility] Serum or plasma albumin paulino urement (mass/volume)Ordered By: Lorne Mg on 03-30-2023 Albumin [Mass/Vol] 3.5 g/dL 3.2-5.0 [facility] Serum or plasma albumin/glob ulin mass ratioOrdered By: Lorne Mg on 03-30-2023 Albumin/Globulin [Mass ratio] 0.9 {ratio} 0.9-2.4 [facility] Serum or plasma calcium paulino urement (mass/volume)Ordered By: Lorne Mg on 03-30-2023 Calcium [Mass/Vol] 9.1 mg/dL 8.5-10.1 [facility] Serum or plasma creatinine m easurement (mass/volume)Ordered By: Lorne Mg on 03-30-2023 Creatinine [Mass/Vol] 1.05 mg/dL 0.70-1.30 [facility] Comment on above: The validity of the calculated GFR & GFRAA in patients over 70 years has not been determined. Clinical correlation is essential. Serum or plasma urea nitroge n measurement (mass/volume)Ordered By: Lorne Mg on 03-30-2023 Urea nitrogen [Mass/Vol] 12 mg/dL 7-18 [facility] Serum or plasma uric acid me asurement (mass/volume)Ordered By: Lorne Mg 03-30-2023 Urate [Mass/Vol] 3.8 mg/dL 3.5-7.2 [facility] Comment on above: The drugs N-Acetylcy steine and Metamizole may falsely depress this assay. Thin prep Papanicolaou smear with manual screeningOrdered By: Lorne Mg on 03-30-2023 Thin prep Papanicolaou smear with manual screening 9 U/L 15-37 [facility] Thin prep Papanicolaou smear with manual screening 7 5-15 [facility] - Microbiology an d Antimicrobial susceptibilityOrdered By: Lorne Mg on 03-10-2023 SARS-CoV-2 (COVID-19) RNA MELECIO+probe Ql (Unsp spec) [facility] No Panel InformationOrdered By: Lorne Mg on 03-10-2023 Influenza Types A,B Direct FA (IVELISSE) [facility] RSV Ag EIAOrdered By: Lorne burrell on 03-10-2023 RSV Ag Immune stain Ql (Tiss) [facility] Absolute lymphocyte countOrd ered By: Dr. Mg on 10-06-2022 Lymphocytes Auto (Unsp spec) [#/Vol] 1.55 10*3/uL 0.83-4.51 [facility] Basophil percentageOrdered B y: Dr. Mg on 10-06-2022 Basophils/100 WBC (Bld) 0.5 % 0-1 [facility] Bilirubin [Mass/Vol] 0.60 mg/dL 0.20-1.00 [facility] Comment on above: For patients on eltr ombopag therapy, use of Dimension [place] TBIL is not recommended. Chloride [Moles/Vol] 106 mmol/L 98-107 [facility] Eosinophils/100 WBC (Bld) 1.8 % 0-5 [facility] Glucose [Mass/Vol] 133 mg/dL 74-106 [facility] Comment on above: Fasting Glucose resu lt greater than or equal to 126 mg/dL suggests DIABETES MELLITUS per A.D.A. criteria. Neutrophils (Bld) [#/Vol] 3.5 10*3/uL 2.0-7.7 [facility] Neutrophils/100 WBC (Bld) 61.5 % 47-70 [facility] Potassium [Moles/Vol] 4.2 mmol/L 3.5-5.1 [facility] Protein [Mass/Vol] 7.3 g/dL 6.4-8.2 [facility] Sodium [Moles/Vol] 139 mmol/L 136-145 [facility] WBC (Bld) [#/Vol] 5.6 10*3/uL 4.4-11.0 [facility] Blood erythrocytes count (nu mber/volume)Ordered By: Dr. Mg on 10-06-2022 RBC (Bld) [#/Vol] 4.96 10*6/uL 4.6-6.2 [facility] Blood hemoglobin measurement (mass/volume)Ordered By: Dr. Mg on 10-06-2022 Hemoglobin (Bld) [Mass/Vol] 16.2 g/dL 13.0-16.5 [facility] Blood lymphocytes/100 leukoc ytesOrdered By: Dr. Mg on 10-06-2022 Lymphocytes/100 WBC (Bld) 27.6 % 19-41 [facility] Blood monocytes/100 leukocyt esOrdered By: Dr. Mg on 10-06-2022 Monocytes/100 WBC (Bld) 8.2 % 0-10 [facility] Blood platelet mean volumeOr dered By: Dr. Mg on 10-06-2022 Platelet mean volume (Bld) [Entitic vol] 11.6 fL 6.2-12.0 [facility] Determination of erythrocyte mean corpuscular volume (MCV)Ordered By: Dr. Mg on 10-06-2022 MCV (RBC) [Entitic vol] 100.6 fL 80-94 [facility] Hematocrit Auto (Bld) [Volum e fraction]Ordered By: Dr. Mg on 10-06-2022 Hematocrit (Bld) [Volume fraction] 49.9 % 40-54 [facility] - Chemistry and C hemistry - challengeOrdered By: Dr. Mg on 10-06-2022 ALP [Catalytic activity/Vol] 65 U/L 45-117 [facility] ALT [Catalytic activity/Vol] 25 U/L 16-61 [facility] CO2 [Moles/Vol] 26.0 mmol/L 21.0-32.0 [facility] Globulin (S) [Mass/Vol] 3.4 g/dL 2.2-4.2 [facility] Urea nitrogen/Creatinine [Mass ratio] 17.4 mg/mg 10-20 [facility] - Hematology and Cell countsOrdered By: Dr. Mg on 10-06-2022 Erythrocyte distribution width (RBC) [Entitic vol] 48.5 fL 35.1-43.9 [facility] Erythrocyte distribution width (RBC) [Ratio] 13.2 % 11.6-14.6 [facility] Immature granulocytes/100 WBC (Bld) 0.400 % 0.0-0.9 [facility] Comment on above: IG% - Immature Granu locytes (promyelocytes, myelocytes and metamyelocytes) > 1% indicates that a LEFT SHIFT is Present. MCH (RBC) [Entitic mass] 32.7 pg 27.0-32.0 [facility] Nucleated RBC/100 WBC (Bld) [Ratio] 0 % 0-5 [facility] MCHC Auto (RBC) [Mass/Vol]Or dered By: Dr. Mg on 10-06-2022 MCHC (RBC) [Mass/Vol] 32.5 g/dL 32-36 [facility] No Panel InformationOrdered By: Dr. Mg on 10-06-2022 Estimated GFR (MDRD) Amer 95 mL/min >60 [facility] Comment on above: GFR Calc Estimated GFR (MDRD) Non-Af Amer 78 mL/min >60 [facility] Comment on above: Non- GFR Calc Thyroid Stimulating Hormone (TSH) 2.27 uIU/mL 0.358-3.74 [facility] Vitamin D 25-Hydroxy 42.3 ng/mL [facility] Comment on above: Vitamin D 25(OH) Sta tus Range Deficiency <20 ng/mL (50nmol/L) Insufficiency 20 - 30 ng/mL (50 - 75 nmol/L) Sufficiency 30 - 100 ng/mL (75 - 250 nmol/L) Toxicity >100 ng/mL (>250 nmol/L) Platelets bldOrdered By: Dr. Mg on 10-06-2022 Platelets (Bld) [#/Vol] 175 10*3/uL 150-450 [facility] Serum or plasma albumin paulino urement (mass/volume)Ordered By: Dr. Mg on 10-06-2022 Albumin [Mass/Vol] 3.9 g/dL 3.2-5.0 [facility] Serum or plasma albumin/glob ulin mass ratioOrdered By: Dr. Mg on 10-06-2022 Albumin/Globulin [Mass ratio] 1.1 {ratio} 0.9-2.4 [facility] Serum or plasma calcium paulino urement (mass/volume)Ordered By: Dr. Mg on 10-06-2022 Calcium [Mass/Vol] 9.1 mg/dL 8.5-10.1 [facility] Serum or plasma creatinine m easurement (mass/volume)Ordered By: Dr. Mg on 10-06-2022 Creatinine [Mass/Vol] 0.98 mg/dL 0.70-1.30 [facility] Comment on above: The validity of the calculated GFR & GFRAA in patients over 70 years has not been determined. Clinical correlation is essential. Serum or plasma urea nitroge n measurement (mass/volume)Ordered By: Dr. Mg on 10-06-2022 Urea nitrogen [Mass/Vol] 17 mg/dL 7-18 [facility] Serum or plasma uric acid me asurement (mass/volume)Ordered By: Dr. Mg on 10-06-2022 Urate [Mass/Vol] 2.7 mg/dL 3.5-7.2 [facility] Comment on above: The drugs N-Acetylcy steine and Metamizole may falsely depress this assay. Thin prep Papanicolaou smear with manual screeningOrdered By: Dr. Mg on 10-06-2022 Thin prep Papanicolaou smear with manual screening 14 U/L 15-37 [facility] Thin prep Papanicolaou smear with manual screening 7 5-15 [facility] Absolute lymphocyte counton 03-28-2022 Lymphocytes Auto (Unsp spec) [#/Vol] 2.10 10*3/uL 0.83-4.51 [facility] Work Phone: Basophil percentageon 2021 Basophils/100 WBC (Bld) 0.6 % 0-1 [facility] Work Phone: Bilirubin [Mass/Vol] 0.60 mg/dL 0.20-1.00 [facility] Work Phone: [phone] Comment on above: For patients on eltr ombopag therapy, use of Dimension [place] TBIL is not recommended. Chloride [Moles/Vol] 103 mmol/L 98-107 [facility] Work Phone: Eosinophils/100 WBC (Bld) 2.3 % 0-5 [facility] Work Phone: Glucose [Mass/Vol] 142 mg/dL 74-106 [facility] Work Phone: Comment on above: Fasting Glucose resu lt greater than or equal to 126 mg/dL suggests DIABETES MELLITUS per A.D.A. criteria. Neutrophils (Bld) [#/Vol] 3.6 10*3/uL 2.0-7.7 [facility] Work Phone: Neutrophils/100 WBC (Bld) 55.8 % 47-70 [facility] Work Phone: Potassium [Moles/Vol] 4.0 mmol/L 3.5-5.1 [facility] Work Phone: Protein [Mass/Vol] 7.7 g/dL 6.4-8.2 [facility] Work Phone: [phone] Sodium [Moles/Vol] 140 mmol/L 136-145 [facility] Work Phone: WBC (Bld) [#/Vol] 6.4 10*3/uL 4.4-11.0 [facility] Work Phone: Blood erythrocytes count (nu mber/volume)on 03-28-2022 RBC (Bld) [#/Vol] 4.99 10*6/uL 4.6-6.2 [facility] Work Phone: Blood hemoglobin measurement (mass/volume)on 03-28-2022 Hemoglobin (Bld) [Mass/Vol] 16.5 g/dL 13.0-16.5 [facility] Work Phone: Blood lymphocytes/100 leukoc yteson 03-28-2022 Lymphocytes/100 WBC (Bld) 32.8 % 19-41 [facility] Work Phone: Blood monocytes/100 leukocyt eson 03-28-2022 Monocytes/100 WBC (Bld) 8.0 % 0-10 [facility] Work Phone: Blood platelet mean volumeon 03-28-2022 Platelet mean volume (Bld) [Entitic vol] 11.5 fL 6.2-12.0 [facility] Work Phone: Determination of erythrocyte mean corpuscular volume (MCV)on 03-28-2022 MCV (RBC) [Entitic vol] 101.4 fL 80-94 [facility] Work Phone: Hematocrit Auto (Bld) [Volum e fraction]on 03-28-2022 Hematocrit (Bld) [Volume fraction] 50.6 % 40-54 [facility] Work Phone: Laboratory - Chemistry and C hemistry - challengeon 03-28-2022 ALP [Catalytic activity/Vol] 71 U/L 45-117 [facility] Work Phone: ALT [Catalytic activity/Vol] 27 U/L 16-61 [facility] Work Phone: CO2 [Moles/Vol] 28.0 mmol/L 21.0-32.0 [facility] Work Phone: Globulin (S) [Mass/Vol] 3.9 g/dL 2.2-4.2 [facility] Work Phone: Urea nitrogen/Creatinine [Mass ratio] 17.2 mg/mg 10-20 [facility] Work Phone: Laboratory - Hematology and Cell countson 03-28-2022 Erythrocyte distribution width (RBC) [Entitic vol] 49.5 fL 35.1-43.9 [facility] Work Phone: Erythrocyte distribution width (RBC) [Ratio] 13.2 % 11.6-14.6 [facility] Work Phone: Immature granulocytes/100 WBC (Bld) 0.500 % 0.0-0.9 [facility] Work Phone: Comment on above: IG% - Immature Granu locytes (promyelocytes, myelocytes and metamyelocytes) > 1% indicates that a LEFT SHIFT is Present. MCH (RBC) [Entitic mass] 33.1 pg 27.0-32.0 [facility] Work Phone: Nucleated RBC/100 WBC (Bld) [Ratio] 0 % 0-5 [facility] Work Phone: MCHC Auto (RBC) [Mass/Vol]on 03-28-2022 MCHC (RBC) [Mass/Vol] 32.6 g/dL 32-36 [facility] Work Phone: No Panel Informationon 03-28 Estimated GFR (MDRD) Amer 100 mL/min >60 [facility] Work Phone: Comment on above: GFR Calc Estimated GFR (MDRD) Non-Af Amer 83 mL/min >60 [facility] Work Phone: Comment on above: Non- GFR Calc Thyroid Stimulating Hormone (TSH) 1.79 uIU/mL 0.358-3.74 [facility] Work Phone: Vitamin D 25-Hydroxy 31.7 ng/mL [facility] Work Phone: Comment on above: Vitamin D 25(OH) Sta tus Range Deficiency <20 ng/mL (50nmol/L) Insufficiency 20 - 30 ng/mL (50 - 75 nmol/L) Sufficiency 30 - 100 ng/mL (75 - 250 nmol/L) Toxicity >100 ng/mL (>250 nmol/L) Platelets bldon 03-28-2022 Platelets (Bld) [#/Vol] 174 10*3/uL 150-450 [facility] Work Phone: Serum or plasma albumin paulino urement (mass/volume)on 03-28-2022 Albumin [Mass/Vol] 3.8 g/dL 3.2-5.0 [facility] Work Phone: Serum or plasma albumin/glob ulin mass ratioon 03-28-2022 Albumin/Globulin [Mass ratio] 1.0 {ratio} 0.9-2.4 [facility] Work Phone: Serum or plasma calcium paulino urement (mass/volume)on 03-28-2022 Calcium [Mass/Vol] 9.5 mg/dL 8.5-10.1 [facility] Work Phone: Serum or plasma creatinine m easurement (mass/volume)on 03-28-2022 Creatinine [Mass/Vol] 0.93 mg/dL 0.70-1.30 [facility] Work Phone: Comment on above: The validity of the calculated GFR & GFRAA in patients over 70 years has not been determined. Clinical correlation is essential. Serum or plasma urea nitroge n measurement (mass/volume)on 03-28-2022 Urea nitrogen [Mass/Vol] 16 mg/dL 7-18 [facility] Work Phone: Serum or plasma uric acid me asurement (mass/volume)on 03-28-2022 Urate [Mass/Vol] 3.1 mg/dL 3.5-7.2 [facility] Work Phone: Comment on above: The drugs N-Acetylcy steine and Metamizole may falsely depress this assay. Thin prep Papanicolaou smear with manual screeningon 03-28-2022 Thin prep Papanicolaou smear with manual screening 17 U/L 15-37 [facility] Work Phone: Thin prep Papanicolaou smear with manual screening 9 5-15 [facility] Work Phone: Absolute lymphocyte counton 12-20-2021 Lymphocytes Auto (Unsp spec) [#/Vol] 1.60 10*3/uL 0.83-4.51 [facility] Work Phone: Basophil percentageon 06-13- 2022 Basophils/100 WBC (Bld) 0.6 % 0-1 [facility] Work Phone: Bilirubin [Mass/Vol] 0.70 mg/dL 0.20-1.00 [facility] Work Phone: [phone] Comment on above: For patients on eltr ombopag therapy, use of Dimension [place] TBIL is not recommended. Chloride [Moles/Vol] 107 mmol/L 98-107 [facility] Work Phone: Eosinophils/100 WBC (Bld) 1.9 % 0-5 [facility] Work Phone: Glucose [Mass/Vol] 105 mg/dL 74-106 [facility] Work Phone: Comment on above: Fasting Glucose resu lt from 100 to 125 mg/dL suggests IMPAIRED HOMEOSTASIS per A.D.A. criteria. Neutrophils (Bld) [#/Vol] 3.0 10*3/uL 2.0-7.7 [facility] Work Phone: Neutrophils/100 WBC (Bld) 56.1 % 47-70 [facility] Work Phone: Potassium [Moles/Vol] 4.2 mmol/L 3.5-5.1 [facility] Work Phone: Protein [Mass/Vol] 7.4 g/dL 6.4-8.2 [facility] Work Phone: Sodium [Moles/Vol] 139 mmol/L 136-145 [facility] Work Phone: WBC (Bld) [#/Vol] 5.3 10*3/uL 4.4-11.0 [facility] Work Phone: Blood erythrocytes count (nu mber/volume)on 12-20-2021 RBC (Bld) [#/Vol] 4.70 10*6/uL 4.6-6.2 [facility] Work Phone: Blood hemoglobin measurement (mass/volume)on 12-20-2021 Hemoglobin (Bld) [Mass/Vol] 15.5 g/dL 13.0-16.5 [facility] Work Phone: Blood lymphocytes/100 leukoc yteson 12-20-2021 Lymphocytes/100 WBC (Bld) 30.2 % 19-41 [facility] Work Phone: Blood monocytes/100 leukocyt eson 12-20-2021 Monocytes/100 WBC (Bld) 10.6 % 0-10 [facility] Work Phone: Blood platelet mean volumeon 12-20-2021 Platelet mean volume (Bld) [Entitic vol] 11.2 fL 6.2-12.0 [facility] Work Phone: Determination of erythrocyte mean corpuscular volume (MCV)on 12-20-2021 MCV (RBC) [Entitic vol] 98.9 fL 80-94 [facility] Work Phone: Hematocrit Auto (Bld) [Volum e fraction]on 12-20-2021 Hematocrit (Bld) [Volume fraction] 46.5 % 40-54 [facility] Work Phone: Laboratory - Chemistry and C hemistry - challengeon 12-20-2021 ALP [Catalytic activity/Vol] 63 U/L 45-117 [facility] Work Phone: ALT [Catalytic activity/Vol] 26 U/L 16-61 [facility] Work Phone: CO2 [Moles/Vol] 23.0 mmol/L 21.0-32.0 [facility] Work Phone: Globulin (S) [Mass/Vol] 3.6 g/dL 2.2-4.2 [facility] Work Phone: Urea nitrogen/Creatinine [Mass ratio] 21.5 mg/mg 10-20 [facility] Work Phone: Laboratory - Hematology and Cell countson 12-20-2021 Erythrocyte distribution width (RBC) [Entitic vol] 49.1 fL 35.1-43.9 [facility] Work Phone: Erythrocyte distribution width (RBC) [Ratio] 13.4 % 11.6-14.6 [facility] Work Phone: Immature granulocytes/100 WBC (Bld) 0.600 % 0.0-0.9 [facility] Work Phone: Comment on above: IG% - Immature Granu locytes (promyelocytes, myelocytes and metamyelocytes) > 1% indicates that a LEFT SHIFT is Present. MCH (RBC) [Entitic mass] 33.0 pg 27.0-32.0 [facility] Work Phone: Nucleated RBC/100 WBC (Bld) [Ratio] 0 % 0-5 [facility] Work Phone: MCHC Auto (RBC) [Mass/Vol]on 12-20-2021 MCHC (RBC) [Mass/Vol] 33.3 g/dL 32-36 [facility] Work Phone: No Panel Informationon 12-20 Estimated GFR (MDRD) Amer 101 mL/min >60 [facility] Work Phone: Comment on above: GFR Calc Estimated GFR (MDRD) Non-Af Amer 83 mL/min >60 [facility] Work Phone: Comment on above: Non- GFR Calc Thyroid Stimulating Hormone (TSH) 1.88 uIU/mL 0.358-3.74 [facility] Work Phone: Vitamin D 25-Hydroxy 39.8 ng/mL [facility] Work Phone: Comment on above: Vitamin D 25(OH) Sta tus Range Deficiency <20 ng/mL (50nmol/L) Insufficiency 20 - 30 ng/mL (50 - 75 nmol/L) Sufficiency 30 - 100 ng/mL (75 - 250 nmol/L) Toxicity >100 ng/mL (>250 nmol/L) Platelets bldon 12-20-2021 Platelets (Bld) [#/Vol] 163 10*3/uL 150-450 [facility] Work Phone: Serum or plasma albumin paulino urement (mass/volume)on 12-20-2021 Albumin [Mass/Vol] 3.8 g/dL 3.2-5.0 [facility] Work Phone: Serum or plasma albumin/glob ulin mass ratioon 12-20-2021 Albumin/Globulin [Mass ratio] 1.1 {ratio} 0.9-2.4 [facility] Work Phone: Serum or plasma calcium paulino urement (mass/volume)on 12-20-2021 Calcium [Mass/Vol] 9.4 mg/dL 8.5-10.1 [facility] Work Phone: Serum or plasma creatinine m easurement (mass/volume)on 12-20-2021 Creatinine [Mass/Vol] 0.93 mg/dL 0.70-1.30 [facility] Work Phone: Comment on above: The validity of the calculated GFR & GFRAA in patients over 70 years has not been determined. Clinical correlation is essential. Serum or plasma urea nitroge n measurement (mass/volume)on 12-20-2021 Urea nitrogen [Mass/Vol] 20 mg/dL 7-18 [facility] Work Phone: Serum or plasma uric acid me asurement (mass/volume)on 12-20-2021 Urate [Mass/Vol] 3.0 mg/dL 3.5-7.2 [facility] Work Phone: Comment on above: The drugs N-Acetylcy steine and Metamizole may falsely depress this assay. Thin prep Papanicolaou smear with manual screeningon 12-20-2021 Thin prep Papanicolaou smear with manual screening 18 U/L 15-37 [facility] Work Phone: Thin prep Papanicolaou smear with manual screening 9 5-15 [facility] Work Phone: Absolute lymphocyte counton 09-20-2021 Lymphocytes Auto (Unsp spec) [#/Vol] 1.60 10*3/uL 0.83-4.51 [facility] Work Phone: Basophil percentageon 2021 Basophils/100 WBC (Bld) 0.6 % 0-1 [facility] Work Phone: [phone] Bilirubin [Mass/Vol] 0.50 mg/dL 0.20-1.00 [facility] Work Phone: Comment on above: For patients on eltr ombopag therapy, use of Dimension [place] TBIL is not recommended. Chloride [Moles/Vol] 106 mmol/L 98-107 [facility] Work Phone: Eosinophils/100 WBC (Bld) 1.8 % 0-5 [facility] Work Phone: Glucose [Mass/Vol] 127 mg/dL 74-106 [facility] Work Phone: Comment on above: Fasting Glucose resu lt greater than or equal to 126 mg/dL suggests DIABETES MELLITUS per A.D.A. criteria. Neutrophils (Bld) [#/Vol] 2.8 10*3/uL 2.0-7.7 [facility] Work Phone: Neutrophils/100 WBC (Bld) 55.6 % 47-70 [facility] Work Phone: Potassium [Moles/Vol] 4.2 mmol/L 3.5-5.1 [facility] Work Phone: Protein [Mass/Vol] 7.4 g/dL 6.4-8.2 [facility] Work Phone: [phone] Sodium [Moles/Vol] 139 mmol/L 136-145 [facility] Work Phone: [phone] WBC (Bld) [#/Vol] 5.1 10*3/uL 4.4-11.0 [facility] Work Phone: Blood erythrocytes count (nu mber/volume)on 09-20-2021 RBC (Bld) [#/Vol] 4.70 10*6/uL 4.6-6.2 [facility]: Blood hemoglobin measurement (mass/volume)on 09-20-2021 Hemoglobin (Bld) [Mass/Vol] 15.0 g/dL 13.0-16.5 [facility] Work Phone: Blood lymphocytes/100 leukoc yteson 09-20-2021 Lymphocytes/100 WBC (Bld) 31.4 % 19-41 [facility] Work Phone: Blood monocytes/100 leukocyt eson 09-20-2021 Monocytes/100 WBC (Bld) 9.8 % 0-10 [facility] Work Phone: Blood platelet mean volumeon 09-20-2021 Platelet mean volume (Bld) [Entitic vol] 11.3 fL 6.2-12.0 [facility] Work Phone: Determination of erythrocyte mean corpuscular volume (MCV)on 09-20-2021 MCV (RBC) [Entitic vol] 100.2 fL 80-94 [facility] Work Phone: Hematocrit Auto (Bld) [Volum e fraction]on 09-20-2021 Hematocrit (Bld) [Volume fraction] 47.1 % 40-54 [facility] Work Phone: Laboratory - Chemistry and C hemistry - challengeon 09-20-2021 ALP [Catalytic activity/Vol] 72 U/L 45-117 [facility] Work Phone: ALT [Catalytic activity/Vol] 23 U/L 16-61 [facility] Work Phone: CO2 [Moles/Vol] 28.0 mmol/L 21.0-32.0 [facility] Work Phone: Globulin (S) [Mass/Vol] 3.7 g/dL 2.2-4.2 [facility] Work Phone: Urea nitrogen/Creatinine [Mass ratio] 15.3 mg/mg 10-20 [facility] Work Phone: Laboratory - Hematology and Cell countson 09-20-2021 Erythrocyte distribution width (RBC) [Entitic vol] 52.2 fL 35.1-43.9 [facility] Work Phone: Erythrocyte distribution width (RBC) [Ratio] 14.0 % 11.6-14.6 [facility] Work Phone: Immature granulocytes/100 WBC (Bld) 0.800 % 0.0-0.9 [facility] Work Phone: Comment on above: IG% - Immature Granu locytes (promyelocytes, myelocytes and metamyelocytes) > 1% indicates that a LEFT SHIFT is Present. MCH (RBC) [Entitic mass] 31.9 pg 27.0-32.0 [facility] Work Phone: Nucleated RBC/100 WBC (Bld) [Ratio] 0 % 0-5 [facility] Work Phone: MCHC Auto (RBC) [Mass/Vol]on 09-20-2021 MCHC (RBC) [Mass/Vol] 31.8 g/dL 32-36 [facility] Work Phone: No Panel Informationon 09-20 Estimated GFR (MDRD) Amer 102 mL/min >60 [facility] Work Phone: Comment on above: GFR Calc Estimated GFR (MDRD) Non-Af Amer 85 mL/min >60 [facility] Work Phone: Comment on above: Non- GFR Calc Thyroid Stimulating Hormone (TSH) 2.40 uIU/mL 0.358-3.74 [facility] Work Phone: Vitamin D 25-Hydroxy 35.2 ng/mL [facility] Work Phone: Comment on above: Vitamin D 25(OH) Sta tus Range Deficiency <20 ng/mL (50nmol/L) Insufficiency 20 - 30 ng/mL (50 - 75 nmol/L) Sufficiency 30 - 100 ng/mL (75 - 250 nmol/L) Toxicity >100 ng/mL (>250 nmol/L) Platelets bldon 09-20-2021 Platelets (Bld) [#/Vol] 164 10*3/uL 150-450 [facility] Work Phone: Serum or plasma albumin paulino urement (mass/volume)on 09-20-2021 Albumin [Mass/Vol] 3.7 g/dL 3.2-5.0 [facility] Work Phone: Serum or plasma albumin/glob ulin mass ratioon 09-20-2021 Albumin/Globulin [Mass ratio] 1.0 {ratio} 0.9-2.4 [facility] Work Phone: Serum or plasma calcium paulino urement (mass/volume)on 09-20-2021 Calcium [Mass/Vol] 9.2 mg/dL 8.5-10.1 [facility] Work Phone: Serum or plasma creatinine m easurement (mass/volume)on 09-20-2021 Creatinine [Mass/Vol] 0.92 mg/dL 0.70-1.30 [facility] Work Phone: Comment on above: The validity of the calculated GFR & GFRAA in patients over 70 years has not been determined. Clinical correlation is essential. Serum or plasma urea nitroge n measurement (mass/volume)on 09-20-2021 Urea nitrogen [Mass/Vol] 14 mg/dL 7-18 [facility] Work Phone: Serum or plasma uric acid me asurement (mass/volume)on 09-20-2021 Urate [Mass/Vol] 2.7 mg/dL 3.5-7.2 [facility] Work Phone: Comment on above: The drugs N-Acetylcy steine and Metamizole may falsely depress this assay. Thin prep Papanicolaou smear with manual screeningon 09-20-2021 Thin prep Papanicolaou smear with manual screening 14 U/L 15-37 [facility] Work Phone: Thin prep Papanicolaou smear with manual screening 5 5-15 [facility] Work Phone: Absolute lymphocyte counton 06-21-2021 Lymphocytes Auto (Unsp spec) [#/Vol] 1.66 10*3/uL 0.83-4.51 [facility] Work Phone: Basophil percentageon 2020 Bilirubin [Mass/Vol] 1.20 mg/dL 0.20-1.00 [facility] Work Phone: [phone] Comment on above: For patients on eltr ombopag therapy, use of Dimension [place] TBIL is not recommended. Chloride [Moles/Vol] 105 mmol/L 98-107 [facility] Work Phone: Eosinophils/100 WBC (Bld) 0.6 % 0-5 [facility] Work Phone: Glucose [Mass/Vol] 127 mg/dL 74-106 [facility] Work Phone: Comment on above: Fasting Glucose resu lt greater than or equal to 126 mg/dL suggests DIABETES MELLITUS per A.D.A. criteria.Please note revised GLUCOSE reference range effective 2017. Neutrophils (Bld) [#/Vol] 6.2 10*3/uL 2.0-7.7 [facility] Work Phone: Potassium [Moles/Vol] 4.7 mmol/L 3.5-5.1 [facility] Work Phone: Protein [Mass/Vol] 7.4 g/dL 6.4-8.2 [facility] Work Phone: [phone] Sodium [Moles/Vol] 136 mmol/L 136-145 [facility] Work Phone: [phone] WBC (Bld) [#/Vol] 8.7 10*3/uL 4.4-11.0 [facility] Work Phone: Blood erythrocytes count (nu mber/volume)on 06-21-2021 RBC (Bld) [#/Vol] 3.61 10*6/uL 4.6-6.2 [facility]: Blood hemoglobin measurement (mass/volume)on 06-21-2021 Hemoglobin (Bld) [Mass/Vol] 11.9 g/dL 13.0-16.5 [facility] Work Phone: Blood lymphocytes/100 leukoc yteson 06-21-2021 Lymphocytes/100 WBC (Bld) 19.0 % 19-41 [facility] Work Phone: Blood monocytes/100 leukocyt eson 06-21-2021 Monocytes/100 WBC (Bld) 8.8 % 0-10 [facility] Work Phone: Blood platelet mean volumeon 06-21-2021 Platelet mean volume (Bld) [Entitic vol] 10.2 fL 6.2-12.0 [facility] Work Phone: Determination of erythrocyte mean corpuscular volume (MCV)on 06-21-2021 MCV (RBC) [Entitic vol] 103.0 fL 80-94 [facility] Work Phone: Hematocrit Auto (Bld) [Volum e fraction]on 06-21-2021 Hematocrit (Bld) [Volume fraction] 37.2 % 40-54 [facility] Work Phone: Laboratory - Chemistry and C hemistry - challengeon 06-21-2021 ALP [Catalytic activity/Vol] 130 U/L 45-117 [facility] Work Phone: ALT [Catalytic activity/Vol] 27 U/L 16-61 [facility] Work Phone: CO2 [Moles/Vol] 26.0 mmol/L 21.0-32.0 [facility] Work Phone: Globulin (S) [Mass/Vol] 4.4 g/dL 2.2-4.2 [facility] Work Phone: Urea nitrogen/Creatinine [Mass ratio] 24.5 mg/mg 10-20 [facility] Work Phone: Laboratory - Hematology and Cell countson 06-21-2021 Basophils/100 WBC (Unsp spec) 0.5 % 0-1 [facility] Work Phone: Erythrocyte distribution width (RBC) [Entitic vol] 61.4 fL 35.1-43.9 [facility] Work Phone: Erythrocyte distribution width (RBC) [Ratio] 16.3 % 11.6-14.6 [facility] Work Phone: Immature granulocytes/100 WBC (Bld) 0.500 % 0.0-0.9 [facility] Work Phone: Comment on above: IG% - Immature Granu locytes (promyelocytes, myelocytes and metamyelocytes) > 1% indicates that a LEFT SHIFT is Present. MCH (RBC) [Entitic mass] 33.0 pg 27.0-32.0 [facility] Work Phone: Neutrophils/100 WBC (Bld) 70.6 % 47-70 [facility] Work Phone: Nucleated RBC/100 WBC (Bld) [Ratio] 0 % 0-5 [facility] Work Phone: MCHC Auto (RBC) [Mass/Vol]on 06-21-2021 MCHC (RBC) [Mass/Vol] 32.0 g/dL 32-36 [facility] Work Phone: No Panel Informationon 06-21 Estimated GFR (MDRD) Amer 87 mL/min >60 [facility] Work Phone: Comment on above: GFR Calc Estimated GFR (MDRD) Non-Af Amer 72 mL/min >60 [facility] Work Phone: Comment on above: Non- GFR Calc Thyroid Stimulating Hormone (TSH) 2.68 uIU/mL 0.358-3.74 [facility] Work Phone: Vitamin D 25-Hydroxy 44.9 ng/mL [facility] Work Phone: Comment on above: Vitamin D 25(OH) Sta tus Range Deficiency <20 ng/mL (50nmol/L) Insufficiency 20 - 30 ng/mL (50 - 75 nmol/L) Sufficiency 30 - 100 ng/mL (75 - 250 nmol/L) Toxicity >100 ng/mL (>250 nmol/L) Platelets bldon 06-21-2021 Platelets (Bld) [#/Vol] 312 10*3/uL 150-450 [facility] Work Phone: Serum or plasma albumin paulino urement (mass/volume)on 06-21-2021 Albumin [Mass/Vol] 3.0 g/dL 3.2-5.0 [facility] Work Phone: Serum or plasma albumin/glob ulin mass ratioon 06-21-2021 Albumin/Globulin [Mass ratio] 0.7 {ratio} 0.9-2.4 [facility] Work Phone: Serum or plasma calcium paulino urement (mass/volume)on 06-21-2021 Calcium [Mass/Vol] 9.3 mg/dL 8.5-10.1 [facility] Work Phone: Serum or plasma creatinine m easurement (mass/volume)on 06-21-2021 Creatinine [Mass/Vol] 1.06 mg/dL 0.70-1.30 [facility] Work Phone: Comment on above: The validity of the calculated GFR & GFRAA in patients over 70 years has not been determined. Clinical correlation is essential. Serum or plasma urea nitroge n measurement (mass/volume)on 06-21-2021 Urea nitrogen [Mass/Vol] 26 mg/dL 7-18 [facility] Work Phone: Serum or plasma uric acid me asurement (mass/volume)on 06-21-2021 Urate [Mass/Vol] 3.1 mg/dL 3.5-7.2 [facility] Work Phone: Comment on above: The drugs N-Acetylcy steine and Metamizole may falsely depress this assay. Thin prep Papanicolaou smear with manual screeningon 06-21-2021 Thin prep Papanicolaou smear with manual screening 17 U/L 15-37 [facility] Work Phone: Thin prep Papanicolaou smear with manual screening 5 5-15 [facility] Work Phone: Glucose Glucometer (BldC) [M ass/Vol]on 06-18-2021 Glucose [Mass/Vol] 138 mg/dL 70-110 [facility] Work Phone: Comment on above: MANAGEMENT OF PATIEN T CARE PER NURSING PROTOCOL Absolute lymphocyte counton 06-16-2021 Lymphocytes Auto (Unsp spec) [#/Vol] 1.72 10*3/uL 0.83-4.51 [facility] Work Phone: [phone] Basophil percentageon 2020 Chloride [Moles/Vol] 103 mmol/L 98-107 [facility] Work Phone: Eosinophils/100 WBC (Bld) 1.1 % 0-5 [facility] Work Phone: Glucose [Mass/Vol] 66 mg/dL 74-106 [facility] Work Phone: Comment on above: Please note revised GLUCOSE reference range effective 2017. Neutrophils (Bld) [#/Vol] 5.4 10*3/uL 2.0-7.7 [facility] Work Phone: Potassium [Moles/Vol] 4.7 mmol/L 3.5-5.1 [facility] Work Phone: Sodium [Moles/Vol] 134 mmol/L 136-145 [facility] Work Phone: WBC (Bld) [#/Vol] 8.2 10*3/uL 4.4-11.0 [facility] Work Phone: Blood erythrocytes count (nu mber/volume)on 06-16-2021 RBC (Bld) [#/Vol] 3.00 10*6/uL 4.6-6.2 [facility]: Blood hemoglobin measurement (mass/volume)on 06-16-2021 Hemoglobin (Bld) [Mass/Vol] 9.8 g/dL 13.0-16.5 [facility] Work Phone: Blood lymphocytes/100 leukoc yteson 06-16-2021 Lymphocytes/100 WBC (Bld) 21.0 % 19-41 [facility] Work Phone: Blood monocytes/100 leukocyt eson 06-16-2021 Monocytes/100 WBC (Bld) 10.0 % 0-10 [facility] Work Phone: Blood platelet mean volumeon 06-16-2021 Platelet mean volume (Bld) [Entitic vol] 9.7 fL 6.2-12.0 [facility] Work Phone: Determination of erythrocyte mean corpuscular volume (MCV)on 06-16-2021 MCV (RBC) [Entitic vol] 98.7 fL 80-94 [facility] Work Phone: Hematocrit Auto (Bld) [Volum e fraction]on 06-16-2021 Hematocrit (Bld) [Volume fraction] 29.6 % 40-54 [facility] Work Phone: Laboratory - Chemistry and C hemistry - challengeon 06-16-2021 CO2 [Moles/Vol] 25.0 mmol/L 21.0-32.0 [facility] Work Phone: Urea nitrogen/Creatinine [Mass ratio] 27.2 mg/mg 10-20 [facility] Work Phone: Comment on above: Previous reported re sult: 24.7 RATIOEdited by: TERRI on 06/16/21:1409 AMENDED REPORT 06/16/21 1409 BUN/CRE previously reported as: 24.7 H RATIO Laboratory - Hematology and Cell countson 06-16-2021 Basophils/100 WBC (Unsp spec) 0.4 % 0-1 [facility] Work Phone: Erythrocyte distribution width (RBC) [Entitic vol] 53.4 fL 35.1-43.9 [facility] Work Phone: Erythrocyte distribution width (RBC) [Ratio] 15.8 % 11.6-14.6 [facility] Work Phone: Immature granulocytes/100 WBC (Bld) 1.300 % 0.0-0.9 [facility] Work Phone: Comment on above: IG% - Immature Granu locytes (promyelocytes, myelocytes and metamyelocytes) > 1% indicates that a LEFT SHIFT is Present. MCH (RBC) [Entitic mass] 32.7 pg 27.0-32.0 [facility] Work Phone: Neutrophils/100 WBC (Bld) 66.2 % 47-70 [facility] Work Phone: Nucleated RBC/100 WBC (Bld) [Ratio] 0 % 0-5 [facility] Work Phone: MCHC Auto (RBC) [Mass/Vol]on 06-16-2021 MCHC (RBC) [Mass/Vol] 33.1 g/dL 32-36 [facility] Work Phone: No Panel Informationon 06-16 Estimated Creatinine Clearance Calc 81.17 ml/min [facility] Work Phone: Comment on above: Previous reported re sult: 73.87 ml/minEdited by: [employer]OINS on 06/16/21:1409 AMENDED REPORT 06/16/21 1409 Estimated CRCL previously reported as: 73.87 ml/min Estimated GFR (MDRD) Amer 119 mL/min >60 [facility] Work Phone: Comment on above: GFR CalcPrevious reported result: 106 mL/minEdited by: [employer]OINS on 06/16/21:1409 Estimated GFR (MDRD) Non-Af Amer 98 mL/min >60 [facility] Work Phone: Comment on above: Non- GFR CalcPrevious reported result: 87 mL/minEdited by: [employer] on 06/16/21:1409 Platelets bldon 06-16-2021 Platelets (Bld) [#/Vol] 187 10*3/uL 150-450 [facility] Work Phone: Serum or plasma calcium paulino urement (mass/volume)on 06-16-2021 Calcium [Mass/Vol] 8.5 mg/dL 8.5-10.1 [facility] Work Phone: Serum or plasma creatinine m easurement (mass/volume)on 06-16-2021 Creatinine [Mass/Vol] 0.81 mg/dL 0.70-1.30 [facility] Work Phone: Comment on above: The validity of the calculated GFR & GFRAA in patients over 70 years has not been determined. Clinical correlation is essential. The validity of the calculated GFR & GFRAA in patients over 70 years has not been determined. Clinical correlation is essential.Previous reported result: 0.89 mg/dLEdited by: [employer] on 06/16/21:1409 AMENDED REPORT 06/16/21 1409 CREAT,SERUM previously reported as: 0.89 mg/dL The validity of the calculated GFR & GFRAA in patients over 70 years has not been determined. Clinical correlation is essential. Serum or plasma urea nitroge n measurement (mass/volume)on 06-16-2021 Urea nitrogen [Mass/Vol] 22 mg/dL 7-18 [facility] Work Phone: Thin prep Papanicolaou smear with manual screeningon 06-16-2021 Thin prep Papanicolaou smear with manual screening 6 5-15 [facility] Work Phone: Basophil percentageon 2020 Bilirubin [Mass/Vol] 2.20 mg/dL 0.20-1.00 [facility] Work Phone: Comment on above: For patients on eltr ombopag therapy, use of Dimension [place] TBIL is not recommended. Protein [Mass/Vol] 6.0 g/dL 6.4-8.2 [facility] Work Phone: Laboratory - Chemistry and C hemistry - challengeon 06-15-2021 ALP [Catalytic activity/Vol] 67 U/L 45-117 [facility] Work Phone: ALT [Catalytic activity/Vol] 23 U/L 16-61 [facility] Work Phone: Globulin (S) [Mass/Vol] 3.5 g/dL 2.2-4.2 [facility] Work Phone: SARS coronavirus RNA [Presen ce] in Unspecified specimen by MELECIO with probe detectionon 06-15-2021 SARS-CoV RNA MELECIO+probe Ql (Unsp spec) Not detected Not Detected [facility] Work Phone: Comment on above: This nucleic acid am plification test was developed and itsperformance characteristics determined by [facility]. Nucleic acid amplification tests include RT-PCR and TMA. This test has not been FDA cleared orapproved. This test has been authorized by FDA under anEmergency Use Authorization (EUA). This test is onlyauthorized for the duration of time the declaration thatcircumstances exist justifying the authorization of theemergency use of in vitro diagnostic tests for detection [id number] virus and/or diagnosis of COVID-19 infectionunder section 564(b)(1) of the Act, 21 U.S.C. 360bbb-3(b)(1), unless the authorization is terminated or revokedsooner.When diagnostic testing is negative, the possibility of afalse negative result should be considered in the contextof a patient's recent exposures and the presence ofclinical signs and symptoms consistent with COVID-19. Anindividual without symptoms of COVID-19 and who is notshedding SARS-CoV-2 virus would expect to have a negative(not detected) result in this assay. Serum or plasma albumin paulino urement (mass/volume)on 06-15-2021 Albumin [Mass/Vol] 2.5 g/dL 3.2-5.0 [facility] Work Phone: Serum or plasma albumin/glob ulin mass ratioon 06-15-2021 Albumin/Globulin [Mass ratio] 0.7 {ratio} 0.9-2.4 [facility] Work Phone: Thin prep Papanicolaou smear with manual screeningon 06-15-2021 Thin prep Papanicolaou smear with manual screening 19 U/L 15-37 [facility] Work Phone: Direct bilirubinon Bilirubin.direct [Mass/Vol] 0.51 mg/dL 0.00-0.30 [facility] Work Phone: HHon 06-08-2021 Hematocrit (Bld) [Volume fraction] 27.4 % Low 40.0-52.0 [facility] ([place]) Comment on above: Performed By: #### C BC, ADIFF, ANEU, ABOM, CMP, GFR, APTT, TROPHS, ANSM #### [address] [address] Hgb 9.5 G/dL Low 13.0-17.5 [facility] ([place]) Comment on above: Performed By: #### C BC, ADIFF, ANEU, ABOM, CMP, GFR, APTT, TROPHS, ANSM #### [address] [address] Hematocrit (Bld) [Volume fraction] 28.2 % Low 40.0-52.0 [facility] ([place]) Comment on above: Performed By: #### C BC, ADIFF, ANEU, ABOM, CMP, GFR, APTT, TROPHS, ANSM #### [address] [address] Hgb 9.7 G/dL Low 13.0-17.5 [facility] ([place]) Comment on above: Performed By: #### C BC, ADIFF, ANEU, ABOM, CMP, GFR, APTT, TROPHS, ANSM #### [address] [address] Hematocrit (Bld) [Volume fraction] 29.9 % Low 40.0-52.0 [facility] ([place]) Comment on above: Performed By: #### C BC, ADIFF, ANEU, ABOM, CMP, GFR, APTT, TROPHS, ANSM #### [facility] [address] [place] [address] Hgb 10.3 G/dL Low 13.0-17.5 [facility] ([place]) Comment on above: Performed By: #### C BC, ADIFF, ANEU, ABOM, CMP, GFR, APTT, TROPHS, ANSM #### [facility] [address] [place] [address] Hematocrit (Bld) [Volume fraction] 29.8 % Low 40.0-52.0 [facility] ([place]) Comment on above: Performed By: #### C BC, ADIFF, ANEU, ABOM, CMP, GFR, APTT, TROPHS, ANSM #### [facility] [address] [place] [address] Hgb 10.2 G/dL Low 13.0-17.5 [facility] ([place]) Comment on above: Performed By: #### C BC, ADIFF, ANEU, ABOM, CMP, GFR, APTT, TROPHS, ANSM #### [address] [address] LABORATORYOrdered By: Charlotte Powell on 06-08-2021 Blood Glucose Testing Reason Routine (06/08/21 5:11 PM) [facility] Glucose [Mass/Vol] 153 mg/dL Invalid Interpretation Code 82 - 115 mg/dL [facility] LABORATORYOrdered By: SYSTEM SYSTEM on 06-08-2021 Hematocrit (Bld) [Volume fraction] 27.4 % Invalid Interpretation Code 40.0 - 52.0 % AH Remisol SS Hemoglobin (Bld) [Mass/Vol] 9.5 G/dL Invalid Interpretation Code 13.0 - 17.5 G/dL AH Remisol SS Hematocrit (Bld) [Volume fraction] 28.2 % Invalid Interpretation Code 40.0 - 52.0 % AH Remisol SS Hemoglobin (Bld) [Mass/Vol] 9.7 G/dL Invalid Interpretation Code 13.0 - 17.5 G/dL AH Remisol SS Hematocrit (Bld) [Volume fraction] 29.9 % Invalid Interpretation Code 40.0 - 52.0 % AH Remisol SS Hemoglobin (Bld) [Mass/Vol] 10.3 G/dL Invalid Interpretation Code 13.0 - 17.5 G/dL AH Remisol SS LABORATORYOrdered By: Porfirio Elliott on 06-08-2021 Adenovirus DNA MELECIO+non-probe Ql (Nph) Not Detected *NA* (06/08/21 3:07 PM) Invalid Interpretation Code Not Detected AH Auto Viro/Sero SS ADMITTED TO INTENSIVE CARE UNIT FOR CONDITION OF INTEREST:FIND:PT:^PATICORNELL T:ORD: No (06/08/21 3:07 PM) Invalid Interpretation Code AH Auto Viro/Sero SS B. pertussis toxin promoter region MELECIO+non-probe Ql (Nph) Not Detected *NA* (06/08/21 3:07 PM) Invalid Interpretation Code Not Detected AH Auto Viro/Sero SS Bordetella Parapertussis Not Detected *NA* (06/08/21 3:07 PM) Invalid Interpretation Code Not Detected AH Auto Viro/Sero SS C. pneumoniae DNA MELECIO+non-probe Ql (Nph) Not Detected *NA* (06/08/21 3:07 PM) Invalid Interpretation Code Not Detected AH Auto Viro/Sero SS EMPLOYED IN A HEALTHCARE SETTING:FIND:PT:^PATIENT :ORD: No (06/08/21 3:07 PM) Invalid Interpretation Code AH Auto Viro/Sero SS FIRST TEST FOR CONDITION OF INTEREST:FIND:PT:^PATICORNELL T:ORD: Unknown (06/08/21 3:07 PM) Invalid Interpretation Code AH Auto Viro/Sero SS FLUAV RNA MELECIO+non-probe Ql (Nph) Not Detected *NA* (06/08/21 3:07 PM) Invalid Interpretation Code Not Detected AH Auto Viro/Sero SS FLUBV RNA MELECIO+non-probe Ql (Nph) Not Detected *NA* (06/08/21 3:07 PM) Invalid Interpretation Code Not Detected AH Auto Viro/Sero SS HAS SYMPTOMS RELATED TO CONDITION OF INTEREST:FIND:PT:^YESSENIA T:ORD: Unknown (06/08/21 3:07 PM) Invalid Interpretation Code AH Auto Viro/Sero SS hMPV RNA MELECIO+non-probe Ql (Nph) Not Detected *NA* (06/08/21 3:07 PM) Invalid Interpretation Code Not Detected Auto Viro/Sero SS Illness or injury onset date and time [id number] Invalid Interpretation Code Auto Viro/Sero SS M. pneumoniae DNA MELECIO+non-probe Ql (Nph) Not Detected *NA* (06/08/21 3:07 PM) Invalid Interpretation Code Not Detected Auto Viro/Sero SS Parainfluenza virus 1 RNA MELECIO+non-probe Ql (Nph) Not Detected *NA* (06/08/21 3:07 PM) Invalid Interpretation Code Not Detected Auto Viro/Sero SS Parainfluenza virus 2 RNA MELECIO+non-probe Ql (Nph) Not Detected *NA* (06/08/21 3:07 PM) Invalid Interpretation Code Not Detected Auto Viro/Sero SS Parainfluenza virus 3 RNA MELECIO+non-probe Ql (Nph) Not Detected *NA* (06/08/21 3:07 PM) Invalid Interpretation Code Not Detected Auto Viro/Sero SS Parainfluenza virus 4 RNA MELECIO+non-probe Ql (Nph) Not Detected *NA* (06/08/21 3:07 PM) Invalid Interpretation Code Not Detected Auto Viro/Sero SS Patient was hospitalized because of this condition Yes (06/08/21 3:07 PM) Invalid Interpretation Code Auto Viro/Sero SS status Not (06/08/21 3:07 PM) Invalid Interpretation Code Auto Viro/Sero SS RESIDES IN A CONGREGATE CARE SETTING:FIND:PT:^PATIENT :ORD: No (06/08/21 3:07 PM) Invalid Interpretation Code Auto Viro/Sero SS Rhinovirus+Enterovirus RNA MELECIO+non-probe Ql (Nph) Detected *ABN* (06/08/21 3:07 PM) Invalid Interpretation Code Not Detected Auto Viro/Sero SS RSV RNA MELECIO+non-probe Ql (Nph) Not Detected *NA* (06/08/21 3:07 PM) Invalid Interpretation Code Not Detected Auto Viro/Sero SS SARS-CoV-2 (COVID-19) RNA MELECIO+probe Ql (Unsp spec) Not Detected *NA* (06/08/21 3:07 PM) Invalid Interpretation Code Not Detected AH Auto Viro/Sero SS LABORATORYOrdered By: Jaimee morales on 06-08-2021 Blood Glucose Testing Reason Routine (06/08/21 12:08 PM) [facility] Glucose [Mass/Vol] 147 mg/dL Invalid Interpretation Code 82 - 115 mg/dL [facility] LABORATORYOrdered By: Betty flowers on 06-08-2021 Blood Glucose Testing Reason Routine (06/08/21 7:25 AM) [facility] Glucose [Mass/Vol] 214 mg/dL Invalid Interpretation Code 82 - 115 mg/dL [facility] RESCVIDon 06-08-2021 Adenovirus Not detected Normal Not Detected [facility] ([place]) Comment on above: Performed By: #### C BC, ADIFF, ANEU, ABOM, CMP, GFR, APTT, TROPHS, ANSM #### [address] [address] Bordetella Parapertussis Not detected Normal Not Detected [facility] ([place]) Comment on above: Performed By: #### C BC, ADIFF, ANEU, ABOM, CMP, GFR, APTT, TROPHS, ANSM #### [address] [address] Bordetella Pertussis Not detected Normal Not Detected [facility] ([place]) Comment on above: Performed By: #### C BC, ADIFF, ANEU, ABOM, CMP, GFR, APTT, TROPHS, ANSM #### [address] [address] Chlamydophila pneumoniae Not detected Normal Not Detected [facility] ([place]) Comment on above: Performed By: #### C BC, ADIFF, ANEU, ABOM, CMP, GFR, APTT, TROPHS, ANSM #### [address] [address] Coronavirus 229E (Not COVID-19) Not detected Normal Not Detected [facility] ([place]) Comment on above: Performed By: #### C BC, ADIFF, ANEU, ABOM, CMP, GFR, APTT, TROPHS, ANSM #### [place] [address] Coronavirus HKU1 (Not COVID-19) Not detected Normal Not Detected [facility] ([place]) Comment on above: Performed By: #### C BC, ADIFF, ANEU, ABOM, CMP, GFR, APTT, TROPHS, ANSM #### [place] [address] Coronavirus NL63 (Not COVID-19) Not detected Normal Not Detected [facility] ([place]) Comment on above: Performed By: #### C BC, ADIFF, ANEU, ABOM, CMP, GFR, APTT, TROPHS, ANSM #### [place] [address] Coronavirus OC43 (Not COVID-19) Not detected Normal Not Detected [facility] ([place]) Comment on above: Performed By: #### C BC, ADIFF, ANEU, ABOM, CMP, GFR, APTT, TROPHS, ANSM #### [place] [address] Date of Onset [id number] Invalid Interpretation Code [facility] ([place]) Comment on above: Performed By: #### C BC, ADIFF, ANEU, ABOM, CMP, GFR, APTT, TROPHS, ANSM #### [place] [id number] Employed in Healthcare No Normal [facility] ([place]) Comment on above: Performed By: #### C BC, ADIFF, ANEU, ABOM, CMP, GFR, APTT, TROPHS, ANSM #### [place] [id number] First Test Unknown Normal [facility] ([place]) Comment on above: Performed By: #### C BC, ADIFF, ANEU, ABOM, CMP, GFR, APTT, TROPHS, ANSM #### [place] [address] Hospitalized Yes Normal [facility] ([place]) Comment on above: Performed By: #### C BC, ADIFF, ANEU, ABOM, CMP, GFR, APTT, TROPHS, ANSM #### [place] [address] Human Metapneumovirus Not detected Normal Not Detected [facility] ([place]) Comment on above: Performed By: #### C BC, ADIFF, ANEU, ABOM, CMP, GFR, APTT, TROPHS, ANSM #### [place] [address] ICU No Normal [facility] ([place]) Comment on above: Performed By: #### C BC, ADIFF, ANEU, ABOM, CMP, GFR, APTT, TROPHS, ANSM #### [place] [address] Influenza A Not detected Normal Not Detected [facility] ([place]) Comment on above: Performed By: #### C BC, ADIFF, ANEU, ABOM, CMP, GFR, APTT, TROPHS, ANSM #### [place] [address] Influenza B Not detected Normal Not Detected [facility] ([place]) Comment on above: Performed By: #### C BC, ADIFF, ANEU, ABOM, CMP, GFR, APTT, TROPHS, ANSM #### [place] [address] Mycoplasma pneumoniae Not detected Normal Not Detected [facility] ([place]) Comment on above: Performed By: #### C BC, ADIFF, ANEU, ABOM, CMP, GFR, APTT, TROPHS, ANSM #### [place] [address] Parainfluenza 1 Not detected Normal Not Detected [facility] ([place]) Comment on above: Performed By: #### C BC, ADIFF, ANEU, ABOM, CMP, GFR, APTT, TROPHS, ANSM #### [place] [address] Parainfluenza 2 Not detected Normal Not Detected [facility] ([place]) Comment on above: Performed By: #### C BC, ADIFF, ANEU, ABOM, CMP, GFR, APTT, TROPHS, ANSM #### [place] [address] Parainfluenza 3 Not detected Normal Not Detected [facility] ([place]) Comment on above: Performed By: #### C BC, ADIFF, ANEU, ABOM, CMP, GFR, APTT, TROPHS, ANSM #### [place] [address] Parainfluenza 4 Not detected Normal Not Detected [facility] ([place]) Comment on above: Performed By: #### C BC, ADIFF, ANEU, ABOM, CMP, GFR, APTT, TROPHS, ANSM #### [place] [address] Not Normal [facility] ([place]) Comment on above: Performed By: #### C BC, ADIFF, ANEU, ABOM, CMP, GFR, APTT, TROPHS, ANSM #### [place] [address] Resides in Congregate Care Setting No Normal [facility] ([place]) Comment on above: Performed By: #### C BC, ADIFF, ANEU, ABOM, CMP, GFR, APTT, TROPHS, ANSM #### [place] [address] Respiratory Syncytial Virus Not detected Normal Not Detected [facility] ([place]) Comment on above: Performed By: #### C BC, ADIFF, ANEU, ABOM, CMP, GFR, APTT, TROPHS, ANSM #### [place] [address] Rhinovirus/Enterovirus Detected Abnormal Not Detected [facility] ([place]) Comment on above: Performed By: #### C BC, ADIFF, ANEU, ABOM, CMP, GFR, APTT, TROPHS, ANSM #### [place] [address] SARS-CoV-2 (COVID-19) RNA MELECIO+probe Ql (Unsp spec) Not detected Normal Not Detected [facility] ([place]) Comment on above: Result Comment: This test is being used under the FDA EUA procedure. This assay has been validated in the [facility] for use with nasopharyngeal specimens in [facility]. If a non-validated specimen or test collection method was used, please interpret the results with caution, especially if the test result is negative. A positive test result for COVID-19 indicates that RNA from SARS-CoV-2 was detected, and the patient is infected with the virus and presumed to be contagious. Laboratory test results should always be considered in the context of clinical observations and epidemiological data in making a final diagnosis and patient management decisions. Patient management should follow current CDC guidelines. A negative test result for this test means that SARS-CoV-2 RNA was not present in the specimen above the limit of detection. However, a negative result does not rule out COVID-19 and should not be used as the sole basis for treatment or patient management decisions. A negative result does not exclude the possibility of COVID-19. When diagnostic testing is negative, the possibility of a false negative result should be considered in the context of a patient's recent exposures and the presence of clinical signs and symptoms consistent with COVID-19. The possibility of a false negative result should especially be considered if the patient?s recent exposures or clinical presentation indicate that COVID-19 is likely, and diagnostic tests for other causes of illness (e.g., other respiratory illness) are negative. If COVID-19 is still suspected based on exposure history together with other clinical findings, re-testing should be considered by healthcare providers in consultation with public health authorities. Performed By: #### C BC, ADIFF, ANEU, ABOM, CMP, GFR, APTT, TROPHS, ANSM #### [address] [address] Symptomatic as Defined by CDC Unknown Normal [facility] ([place]) Comment on above: Performed By: #### C BC, ADIFF, ANEU, ABOM, CMP, GFR, APTT, TROPHS, ANSM #### [address] [address] .Auto Diffon 06-07-2021 Basophil, Absolute 0.00 10 3/mcL Normal 0.00-0.27 [facility] ([place]) Comment on above: Performed By: #### C BC, ADIFF, ANEU, ABOM, CMP, GFR, APTT, TROPHS, ANSM #### [address] [address] Basophils/100 WBC (Bld) 0.2 % Normal 0.0-2.5 A [facility] ([place]) Comment on above: Performed By: #### C BC, ADIFF, ANEU, ABOM, CMP, GFR, APTT, TROPHS, ANSM #### [address] [address] Eosinophil, Absolute 0.00 10 3/mcL Normal 0.00-0.65 A [facility] ([place]) Comment on above: Performed By: #### C BC, ADIFF, ANEU, ABOM, CMP, GFR, APTT, TROPHS, ANSM #### [address] [address] Eosinophils/100 WBC (Bld) 0.1 % Normal 0.0-6.0 [facility] ([place]) Comment on above: Performed By: #### C BC, ADIFF, ANEU, ABOM, CMP, GFR, APTT, TROPHS, ANSM #### [address] [address] Lymphocyte, Absolute 1.30 10 3/mcL Normal 0.90-4.32 A [facility] ([place]) Comment on above: Performed By: #### C BC, ADIFF, ANEU, ABOM, CMP, GFR, APTT, TROPHS, ANSM #### [address] [address] Lymphocytes/100 WBC (Bld) 18.8 % Low 20.0-40.0 [facility] ([place]) Comment on above: Performed By: #### C BC, ADIFF, ANEU, ABOM, CMP, GFR, APTT, TROPHS, ANSM #### [address] [address] Monocyte, Absolute 0.80 10 3/mcL Normal 0.09-1.40 [facility] ([place]) Comment on above: Performed By: #### C BC, ADIFF, ANEU, ABOM, CMP, GFR, APTT, TROPHS, ANSM #### [address] [address] Monocytes/100 WBC (Bld) 11.5 % Normal 2.0-13.0 A [facility] ([place]) Comment on above: Performed By: #### C BC, ADIFF, ANEU, ABOM, CMP, GFR, APTT, TROPHS, ANSM #### [address] [address] Neutrophils/100 WBC (Bld) 69.4 % Normal 50.0-75.0 [facility] ([place]) Comment on above: Performed By: #### C BC, ADIFF, ANEU, ABOM, CMP, GFR, APTT, TROPHS, ANSM #### [address] [address] .GFRon 06-07-2021 GFR >60 Normal [facility] ([place]) Comment on above: Result Comment: GFR Population mean for , Non- Americans Ages 20-29 = 116 mL/min/1.73 sq.m. Ages 30-39 = 107 mL/min/1.73 sq.m. Ages 40-49 = 99 mL/min/1.73 sq.m. Ages 50-59 = 93 mL/min/1.73 sq.m. Ages 60-69 = 85 mL/min/1.73 sq.m. Ages 70+ = 75 mL/min/1.73 sq.m. Chronic Kidney Disease: Less than 60 mL/min/1.73 square meters End Stage Renal Disease: Less than 15 mL/min/1.73 square meters Performed By: #### C BC, ADIFF, ANEU, ABOM, CMP, GFR, APTT, TROPHS, ANSM #### [address] [address] GFR Non- >60 Normal [facility] ([place]) Comment on above: Result Comment: GFR Population mean for , Non- Americans Ages 20-29 = 116 mL/min/1.73 sq.m. Ages 30-39 = 107 mL/min/1.73 sq.m. Ages 40-49 = 99 mL/min/1.73 sq.m. Ages 50-59 = 93 mL/min/1.73 sq.m. Ages 60-69 = 85 mL/min/1.73 sq.m. Ages 70+ = 75 mL/min/1.73 sq.m. Chronic Kidney Disease: Less than 60 mL/min/1.73 square meters End Stage Renal Disease: Less than 15 mL/min/1.73 square meters Performed By: #### C BC, ADIFF, ANEU, ABOM, CMP, GFR, APTT, TROPHS, ANSM #### [address] [address] .NEUABSon 06-07-2021 Neutrophil, Absolute 4.80 10 3/mcL Normal 2.25-8.10 A [facility] ([place]) Comment on above: Performed By: #### C BC, ADIFF, ANEU, ABOM, CMP, GFR, APTT, TROPHS, ANSM #### [address] [address] BMPon 06-07-2021 BUN/Creatinine Ratio 22.9 ratio High 10.0-22.0 [facility] ([place]) Comment on above: Performed By: #### C BC, ADIFF, ANEU, ABOM, CMP, GFR, APTT, TROPHS, ANSM #### [address] [address] Calcium [Mass/Vol] 8.5 mg/dL Low 8.7-10.4 [facility] ([place]) Comment on above: Result Comment: No te - New Reference Range in effect 20 Performed By: #### C BC, ADIFF, ANEU, ABOM, CMP, GFR, APTT, TROPHS, ANSM #### [address] [address] Chloride [Moles/Vol] 109 mmol/L Normal 98-110 [facility] ([place]) Comment on above: Performed By: #### C BC, ADIFF, ANEU, ABOM, CMP, GFR, APTT, TROPHS, ANSM #### [address] [address] CO2 [Moles/Vol] 22 mmol/L Normal 22-32 [facility] ([place]) Comment on above: Performed By: #### C BC, ADIFF, ANEU, ABOM, CMP, GFR, APTT, TROPHS, ANSM #### [address] [address] Creatinine [Mass/Vol] 1.05 mg/dL Normal 0.60-1.40 [facility] ([place]) Comment on above: Performed By: #### C BC, ADIFF, ANEU, ABOM, CMP, GFR, APTT, TROPHS, ANSM #### [address] [address] Electrolyte Balance 8.0 mEq/L Normal 4.0-15.0 [facility] Comment on above: Performed By: #### C BC, ADIFF, ANEU, ABOM, CMP, GFR, APTT, TROPHS, ANSM #### [address] [address] Glucose [Mass/Vol] 137 mg/dL High 82-115 [facility] ([place]) Comment on above: Performed By: #### C BC, ADIFF, ANEU, ABOM, CMP, GFR, APTT, TROPHS, ANSM #### [address] [address] Potassium [Moles/Vol] 4.1 mmol/L Normal 3.5-5.0 [facility] ([place]) Comment on above: Performed By: #### C BC, ADIFF, ANEU, ABOM, CMP, GFR, APTT, TROPHS, ANSM #### [address] [address] Sodium [Moles/Vol] 139 mmol/L Normal 136-145 [facility] ([place]) Comment on above: Performed By: #### C BC, ADIFF, ANEU, ABOM, CMP, GFR, APTT, TROPHS, ANSM #### [address] [address] Urea nitrogen [Mass/Vol] 24.0 mg/dL High 8.0-22.0 [facility] ([place]) Comment on above: Performed By: #### C BC, ADIFF, ANEU, ABOM, CMP, GFR, APTT, TROPHS, ANSM #### [address] [address] CBCon 06-07-2021 Erythrocyte distribution width (RBC) [Ratio] 14.4 % Normal 11.5-15.5 [facility] ([place]) Comment on above: Performed By: #### C BC, ADIFF, ANEU, ABOM, CMP, GFR, APTT, TROPHS, ANSM #### [place] [id number] Hematocrit (Bld) [Volume fraction] 32.7 % Low 40.0-52.0 [facility] ([place]) Comment on above: Performed By: #### C BC, ADIFF, ANEU, ABOM, CMP, GFR, APTT, TROPHS, ANSM #### [place] [address] Hgb 11.3 G/dL Low 13.0-17.5 [facility] ([place]) Comment on above: Performed By: #### C BC, ADIFF, ANEU, ABOM, CMP, GFR, APTT, TROPHS, ANSM #### [address] [address] MCH (RBC) [Entitic mass] 32.7 pg Normal 27.0-33.0 [facility] ([place]) Comment on above: Performed By: #### C BC, ADIFF, ANEU, ABOM, CMP, GFR, APTT, TROPHS, ANSM #### [place] [id number] MCHC 34.4 G/dL Normal 32.0-36.0 [facility] ([place]) Comment on above: Performed By: #### C BC, ADIFF, ANEU, ABOM, CMP, GFR, APTT, TROPHS, ANSM #### [place] [id number] MCV (RBC) [Entitic vol] 95.0 fL Normal 81.0-100.0 A [facility] ([place]) Comment on above: Performed By: #### C BC, ADIFF, ANEU, ABOM, CMP, GFR, APTT, TROPHS, ANSM #### [address] [address] Platelet 130 10 3/mcL Low 150-450 [facility] ([place]) Comment on above: Performed By: #### C BC, ADIFF, ANEU, ABOM, CMP, GFR, APTT, TROPHS, ANSM #### [place] [address] Platelet mean volume (Bld) [Entitic vol] 9.5 fL Normal 6.4-10.5 [facility] ([place]) Comment on above: Performed By: #### C BC, ADIFF, ANEU, ABOM, CMP, GFR, APTT, TROPHS, ANSM #### [place] [address] RBC 3.45 10 6/mcL Low 4.50-6.00 [facility] ([place]) Comment on above: Performed By: #### C BC, ADIFF, ANEU, ABOM, CMP, GFR, APTT, TROPHS, ANSM #### [place] [address] WBC 6.90 10 3/mcL Normal 4.50-10.80 [facility] ([place]) Comment on above: Performed By: #### C BC, ADIFF, ANEU, ABOM, CMP, GFR, APTT, TROPHS, ANSM #### [address] [address] HHon 06-07-2021 Hematocrit (Bld) [Volume fraction] 30.2 % Low 40.0-52.0 [facility] ([place]) Comment on above: Performed By: #### C BC, ADIFF, ANEU, ABOM, CMP, GFR, APTT, TROPHS, ANSM #### [place] [address] Hgb 10.3 G/dL Low 13.0-17.5 [facility] ([place]) Comment on above: Performed By: #### C BC, ADIFF, ANEU, ABOM, CMP, GFR, APTT, TROPHS, ANSM #### [facility] [address] [place], [place] [address] Hematocrit (Bld) [Volume fraction] 31.8 % Low 40.0-52.0 [facility] ([place]) Comment on above: Performed By: #### C BC, ADIFF, ANEU, ABOM, CMP, GFR, APTT, TROPHS, ANSM #### [place] [address] Hgb 10.9 G/dL Low 13.0-17.5 [facility] ([place]) Comment on above: Performed By: #### C BC, ADIFF, ANEU, ABOM, CMP, GFR, APTT, TROPHS, ANSM #### [place] [address] Hematocrit (Bld) [Volume fraction] 36.0 % Low 40.0-52.0 [facility] ([place]) Comment on above: Performed By: #### C BC, ADIFF, ANEU, ABOM, CMP, GFR, APTT, TROPHS, ANSM #### [place] [address] Hgb 12.2 G/dL Low 13.0-17.5 [facility] ([place]) Comment on above: Performed By: #### C BC, ADIFF, ANEU, ABOM, CMP, GFR, APTT, TROPHS, ANSM #### [place] [address] LABORATORYOrdered By: SYSTEM SYSTEM on 06-07-2021 Basophils (Bld) [#/Vol] 0.00 103/mcL Invalid Interpretation Code 0.00 - 0.27 10^3/mcL AH Remisol SS Basophils/100 WBC (Bld) 0.2 % Invalid Interpretation Code 0.0 - 2.5 % AH Remisol SS Calcium [Mass/Vol] 8.5 mg/dL Invalid Interpretation Code 8.7 - 10.4 mg/dL AH ADM SS Chloride [Moles/Vol] 109 mmol/L Invalid Interpretation Code 98 - 110 mEq/L AH ADM SS CO2 [Moles/Vol] 22 mmol/L Invalid Interpretation Code 22 - 32 mEq/L AH ADM SS Creatinine [Mass/Vol] 1.05 mg/dL Invalid Interpretation Code 0.60 - 1.40 mg/dL AH ADM SS Electrolyte Balance 8.0 mEq/L Invalid Interpretation Code 4.0 - 15.0 mEq/L AH ADM SS Eosinophils (Bld) [#/Vol] 0.00 103/mcL Invalid Interpretation Code 0.00 - 0.65 10^3/mcL AH Remisol SS Eosinophils/100 WBC (Bld) 0.1 % Invalid Interpretation Code 0.0 - 6.0 % AH Remisol SS Erythrocyte distribution width (RBC) [Ratio] 14.4 % Invalid Interpretation Code 11.5 - 15.5 % AH Remisol SS GFR/1.73 sq M.predicted among blacks MDRD (S/P/Bld) [Vol rate/Area] ml/min/1.73sqm Invalid Interpretation Code AH Chemistry S GFR/1.73 sq M.predicted among non-blacks MDRD (S/P/Bld) [Vol rate/Area] ml/min/1.73sqm Invalid Interpretation Code Chemistry S Glucose [Mass/Vol] 137 mg/dL Invalid Interpretation Code 82 - 115 mg/dL ADM SS Lymphocytes (Bld) [#/Vol] 1.30 103/mcL Invalid Interpretation Code 0.90 - 4.32 10^3/mcL AH Remisol SS Lymphocytes/100 WBC (Bld) 18.8 % Invalid Interpretation Code 20.0 - 40.0 % AH Remisol SS MCH (RBC) [Entitic mass] 32.7 pg Invalid Interpretation Code 27.0 - 33.0 pg AH Remisol SS MCHC (RBC) [Mass/Vol] 34.4 G/dL Invalid Interpretation Code 32.0 - 36.0 G/dL AH Remisol SS MCV (RBC) [Entitic vol] 95.0 fL Invalid Interpretation Code 81.0 - 100.0 fL AH Remisol SS Monocytes (Bld) [#/Vol] 0.80 103/mcL Invalid Interpretation Code 0.09 - 1.40 10^3/mcL AH Remisol SS Monocytes/100 WBC (Bld) 11.5 % Invalid Interpretation Code 2.0 - 13.0 % AH Remisol SS Neutrophils (Bld) [#/Vol] 4.80 103/mcL Invalid Interpretation Code 2.25 - 8.10 10^3/mcL AH Remisol SS Neutrophils/100 WBC (Bld) 69.4 % Invalid Interpretation Code 50.0 - 75.0 % AH Remisol SS Platelet mean volume (Bld) [Entitic vol] 9.5 fL Invalid Interpretation Code 6.4 - 10.5 fL AH Remisol SS Platelets (Bld) [#/Vol] 130 103/mcL Invalid Interpretation Code 150 - 450 10^3/mcL AH Remisol SS Potassium [Moles/Vol] 4.1 mmol/L Invalid Interpretation Code 3.5 - 5.0 mEq/L AH ADM SS RBC (Bld) [#/Vol] 3.45 106/mcL Invalid Interpretation Code 4.50 - 6.00 10^6/mcL AH Remisol SS Sodium [Moles/Vol] 139 mmol/L Invalid Interpretation Code 136 - 145 mEq/L AH ADM SS Urea nitrogen [Mass/Vol] 24.0 mg/dL Invalid Interpretation Code 8.0 - 22.0 mg/dL AH ADM SS Urea nitrogen/Creatinine [Mass ratio] 22.9 ratio Invalid Interpretation Code 10.0 - 22.0 ratio AH ADM SS WBC (Bld) [#/Vol] 6.90 103/mcL Invalid Interpretation Code 4.50 - 10.80 10^3/mcL AH Remisol SS XR ANKLE MINIMUM 3 VIEWS RIG HTon 06-07-2021 XR ANKLE MINIMUM 3 VIEWS RIGHT ORIGINAL EXAMINATION: THREE XRAY VIEWS OF THE RIGHT ANKLE06/06/2021 7:32 pm COMPARISON: None. HISTORY: ORDERING SYSTEM PROVIDED HISTORY: Reason for Exam: pain. FINDINGS: Subtle cortical discontinuity along the lateral aspect of the infrasyndesmotic fibula. Diffuse ankle edema and leg edema. The ankle mortise and talar dome are normal. The joint spaces are maintained. There is no radiopaque foreign body. IMPRESSION: Subtle cortical irregularity concerning for nondisplaced infrasyndesmotic fibular fracture. Diffuse leg edema is likely related to acute trauma. However, correlation with contralateral extremity and patient history is recommended venous stasis or lymphedema. I have personally reviewed the images of this examination and agree with the resident's findings and interpretation. Interpreted by: Andrew Castillo MD Preliminary Report By: Kadeem Wilcox Electronically signed By Andrew Castillo MD Dictated Date: 06/06/2021 8:12:26 PM Prelim Date: 06/06/2021 8:16:25 PM Sign Date: 06/06/2021 10:33:02 PM Ordering Provider: MAYANK Douglass [facility] ([place]) .Auto Diffon 06-06-2021 Basophil, Absolute 0.00 10 3/mcL Normal 0.00-0.27 [facility] ([place]) Comment on above: Performed By: #### C BC, ADIFF, ANEU, ABOM, CMP, GFR, APTT, TROPHS, ANSM #### [address] [address] Basophils/100 WBC (Bld) 0.1 % Normal 0.0-2.5 A [facility] ([place]) Comment on above: Performed By: #### C BC, ADIFF, ANEU, ABOM, CMP, GFR, APTT, TROPHS, ANSM #### [address] [address] Eosinophil, Absolute 0.00 10 3/mcL Normal 0.00-0.65 A [facility] ([place]) Comment on above: Performed By: #### C BC, ADIFF, ANEU, ABOM, CMP, GFR, APTT, TROPHS, ANSM #### [address] [address] Eosinophils/100 WBC (Bld) 0.0 % Normal 0.0-6.0 [facility] ([place]) Comment on above: Performed By: #### C BC, ADIFF, ANEU, ABOM, CMP, GFR, APTT, TROPHS, ANSM #### [address] [address] Lymphocyte, Absolute 0.60 10 3/mcL Low 0.90-4.32 A [facility] ([place]) Comment on above: Performed By: #### C BC, ADIFF, ANEU, ABOM, CMP, GFR, APTT, TROPHS, ANSM #### [address] [address] Lymphocytes/100 WBC (Bld) 5.5 % Low 20.0-40.0 [facility] ([place]) Comment on above: Performed By: #### C BC, ADIFF, ANEU, ABOM, CMP, GFR, APTT, TROPHS, ANSM #### [address] [address] Monocyte, Absolute 1.00 10 3/mcL Normal 0.09-1.40 [facility] ([place]) Comment on above: Performed By: #### C BC, ADIFF, ANEU, ABOM, CMP, GFR, APTT, TROPHS, ANSM #### [address] [address] Monocytes/100 WBC (Bld) 8.5 % Normal 2.0-13.0 A [facility] ([place]) Comment on above: Performed By: #### C BC, ADIFF, ANEU, ABOM, CMP, GFR, APTT, TROPHS, ANSM #### [address] [address] Neutrophils/100 WBC (Bld) 85.9 % High 50.0-75.0 [facility] ([place]) Comment on above: Performed By: #### C BC, ADIFF, ANEU, ABOM, CMP, GFR, APTT, TROPHS, ANSM #### [address] [address] .GFRon 06-06-2021 GFR >60 Normal [facility] ([place]) Comment on above: Result Comment: GFR Population mean for , Non- Americans Ages 20-29 = 116 mL/min/1.73 sq.m. Ages 30-39 = 107 mL/min/1.73 sq.m. Ages 40-49 = 99 mL/min/1.73 sq.m. Ages 50-59 = 93 mL/min/1.73 sq.m. Ages 60-69 = 85 mL/min/1.73 sq.m. Ages 70+ = 75 mL/min/1.73 sq.m. Chronic Kidney Disease: Less than 60 mL/min/1.73 square meters End Stage Renal Disease: Less than 15 mL/min/1.73 square meters Performed By: #### C BC, ADIFF, ANEU, ABOM, CMP, GFR, APTT, TROPHS, ANSM #### [address] [address] GFR Non- >60 Normal [facility] ([place]) Comment on above: Result Comment: GFR Population mean for , Non- Americans Ages 20-29 = 116 mL/min/1.73 sq.m. Ages 30-39 = 107 mL/min/1.73 sq.m. Ages 40-49 = 99 mL/min/1.73 sq.m. Ages 50-59 = 93 mL/min/1.73 sq.m. Ages 60-69 = 85 mL/min/1.73 sq.m. Ages 70+ = 75 mL/min/1.73 sq.m. Chronic Kidney Disease: Less than 60 mL/min/1.73 square meters End Stage Renal Disease: Less than 15 mL/min/1.73 square meters Performed By: #### C BC, ADIFF, ANEU, ABOM, CMP, GFR, APTT, TROPHS, ANSM #### [address] [address] .NEUABSon 06-06-2021 Neutrophil, Absolute 9.60 10 3/mcL High 2.25-8.10 A [facility] ([place]) Comment on above: Performed By: #### C BC, ADIFF, ANEU, ABOM, CMP, GFR, APTT, TROPHS, ANSM #### [address] [address] APTTon 06-06-2021 aPTT Coag (Bld) [Time] 30.3 s Normal 25.0-35.0 [facility] ([place]) Comment on above: Result Comment: For Heparin anticoagulation therapy, the recommended therapeutic range is: 54-77 seconds (APTT Correlation with Anti-Xa therapeutic range of 0.3-0.7 units/ml). PLEASE REFERENCE THE PHARMACY PROTOCOL FOR DOSING. Performed By: #### C BC, ADIFF, ANEU, ABOM, CMP, GFR, APTT, TROPHS, ANSM #### [address] [address] Heparin dose (APTT) Unknown [facility] Comment on above: Performed By: #### C BC, ADIFF, ANEU, ABOM, CMP, GFR, APTT, TROPHS, ANSM #### [address] [address] CBCon 06-06-2021 Erythrocyte distribution width (RBC) [Ratio] 14.1 % Normal 11.5-15.5 [facility] ([place]) Comment on above: Performed By: #### C BC, ADIFF, ANEU, ABOM, CMP, GFR, APTT, TROPHS, ANSM #### [place] [address] Hematocrit (Bld) [Volume fraction] 38.4 % Low 40.0-52.0 [facility] ([place]) Comment on above: Performed By: #### C BC, ADIFF, ANEU, ABOM, CMP, GFR, APTT, TROPHS, ANSM #### [place] [address] Hgb 12.8 G/dL Low 13.0-17.5 [facility] ([place]) Comment on above: Performed By: #### C BC, ADIFF, ANEU, ABOM, CMP, GFR, APTT, TROPHS, ANSM #### [place] [address] MCH (RBC) [Entitic mass] 32.5 pg Normal 27.0-33.0 [facility] ([place]) Comment on above: Performed By: #### C BC, ADIFF, ANEU, ABOM, CMP, GFR, APTT, TROPHS, ANSM #### [place] [address] MCHC 33.3 G/dL Normal 32.0-36.0 [facility] ([place]) Comment on above: Performed By: #### C BC, ADIFF, ANEU, ABOM, CMP, GFR, APTT, TROPHS, ANSM #### [place] [address] MCV (RBC) [Entitic vol] 97.5 fL Normal 81.0-100.0 A [facility] ([place]) Comment on above: Performed By: #### C BC, ADIFF, ANEU, ABOM, CMP, GFR, APTT, TROPHS, ANSM #### [place] [address] Platelet 158 10 3/mcL Normal 150-450 [facility] ([place]) Comment on above: Performed By: #### C BC, ADIFF, ANEU, ABOM, CMP, GFR, APTT, TROPHS, ANSM #### [address] [address] Platelet mean volume (Bld) [Entitic vol] 9.1 fL Normal 6.4-10.5 [facility] ([place]) Comment on above: Performed By: #### C BC, ADIFF, ANEU, ABOM, CMP, GFR, APTT, TROPHS, ANSM #### [address] [address] RBC 3.94 10 6/mcL Low 4.50-6.00 [facility] ([place]) Comment on above: Performed By: #### C BC, ADIFF, ANEU, ABOM, CMP, GFR, APTT, TROPHS, ANSM #### [place] [id number] WBC 11.20 10 3/mcL High 4.50-10.80 [facility] ([place]) Comment on above: Performed By: #### C BC, ADIFF, ANEU, ABOM, CMP, GFR, APTT, TROPHS, ANSM #### [address] [address] CMPon 06-06-2021 Albumin Level 3.1 G/dL Low 3.2-4.8 [facility] ([place]) Comment on above: Performed By: #### C BC, ADIFF, ANEU, ABOM, CMP, GFR, APTT, TROPHS, ANSM #### [address] [address] Albumin/Globulin [Mass ratio] 1.0 {ratio} Normal 0.9-1.6 [facility] ([place]) Comment on above: Performed By: #### C BC, ADIFF, ANEU, ABOM, CMP, GFR, APTT, TROPHS, ANSM #### [address] [address] ALP [Catalytic activity/Vol] 50 U/L Normal 38-126 [facility] ([place]) Comment on above: Performed By: #### C BC, ADIFF, ANEU, ABOM, CMP, GFR, APTT, TROPHS, ANSM #### [address] [address] ALT [Catalytic activity/Vol] 43 U/L Normal 12-55 [facility] ([place]) Comment on above: Performed By: #### C BC, ADIFF, ANEU, ABOM, CMP, GFR, APTT, TROPHS, ANSM #### [address] [address] AST [Catalytic activity/Vol] 46 U/L High 8-34 [facility] ([place]) Comment on above: Performed By: #### C BC, ADIFF, ANEU, ABOM, CMP, GFR, APTT, TROPHS, ANSM #### [address] [address] Bili Total 1.0 mg/dL Normal 0.2-1.2 [facility] ([place]) Comment on above: Result Comment: Use of this assay is not recommended for patients undergoing treatment with eltrombopag due to the potential for falsely elevated results. Performed By: #### C BC, ADIFF, ANEU, ABOM, CMP, GFR, APTT, TROPHS, ANSM #### [address] [address] BUN/Creatinine Ratio 17.3 ratio Normal 10.0-22.0 [facility] ([place]) Comment on above: Performed By: #### C BC, ADIFF, ANEU, ABOM, CMP, GFR, APTT, TROPHS, ANSM #### [address] [address] Calcium [Mass/Vol] 8.6 mg/dL Normal 8.4-10.1 [facility] ([place]) Comment on above: Result Comment: No te - New Reference Range in effect 20 Performed By: #### C BC, ADIFF, ANEU, ABOM, CMP, GFR, APTT, TROPHS, ANSM #### [address] [address] Chloride [Moles/Vol] 112 mmol/L High 98-110 [facility] ([place]) Comment on above: Performed By: #### C BC, ADIFF, ANEU, ABOM, CMP, GFR, APTT, TROPHS, ANSM #### [address] [address] CO2 [Moles/Vol] 23 mmol/L Normal 22-32 [facility] ([place]) Comment on above: Performed By: #### C BC, ADIFF, ANEU, ABOM, CMP, GFR, APTT, TROPHS, ANSM #### [address] [address] Creatinine [Mass/Vol] 0.98 mg/dL Normal 0.60-1.40 [facility] ([place]) Comment on above: Performed By: #### C BC, ADIFF, ANEU, ABOM, CMP, GFR, APTT, TROPHS, ANSM #### [address] [address] Electrolyte Balance 7.0 mEq/L Normal 4.0-15.0 [facility] Comment on above: Performed By: #### C BC, ADIFF, ANEU, ABOM, CMP, GFR, APTT, TROPHS, ANSM #### [address] [address] Globulin 3.1 G/dL Normal 1.5-3.8 [facility] ([place]) Comment on above: Performed By: #### C BC, ADIFF, ANEU, ABOM, CMP, GFR, APTT, TROPHS, ANSM #### [address] [address] Glucose [Mass/Vol] 194 mg/dL High 82-115 [facility] ([place]) Comment on above: Performed By: #### C BC, ADIFF, ANEU, ABOM, CMP, GFR, APTT, TROPHS, ANSM #### [address] [address] Potassium [Moles/Vol] 4.6 mmol/L Normal 3.5-5.0 [facility] ([place]) Comment on above: Performed By: #### C BC, ADIFF, ANEU, ABOM, CMP, GFR, APTT, TROPHS, ANSM #### [facility] [address] [place] [address] Sodium [Moles/Vol] 142 mmol/L Normal 136-145 [facility] ([place]) Comment on above: Performed By: #### C BC, ADIFF, ANEU, ABOM, CMP, GFR, APTT, TROPHS, ANSM #### [place] [id number] [place] [address] Total Protein 6.2 G/dL Normal 6.0-8.5 [facility] ([place]) Comment on above: Result Comment: No te - New Reference Range in effect 20 Performed By: #### C BC, ADIFF, ANEU, ABOM, CMP, GFR, APTT, TROPHS, ANSM #### [address] [address] Urea nitrogen [Mass/Vol] 17.0 mg/dL Normal 8.0-22.0 [facility] ([place]) Comment on above: Performed By: #### C BC, ADIFF, ANEU, ABOM, CMP, GFR, APTT, TROPHS, ANSM #### [address] [address] [address] KNEE W/O CONTRAST RIGHTon 06-06-2021 CT KNEE W/O CONTRAST RIGHT ORIGINAL EXAMINATION: CT OF THE RIGHT KNEE WITHOUT USPFPSQD04/28/2021 7:15 pm TECHNIQUE: CT of the right knee was performed without the administration of intravenous contrast. Multiplanar reformatted images are provided for review. Dose modulation, iterative reconstruction, and/or weight based adjustment of the mA/kV was utilized to reduce the radiation dose to as low as reasonably achievable. COMPARISON: None. HISTORY: ORDERING SYSTEM PROVIDED HISTORY: Reason for Exam: prox fib fracture FINDINGS: Bones: There is an acute minimally displaced comminuted fracture the fibular head with 2 mm foreshortening of the distal fragment and 8 mm diastasis of the proximal fragments. No tibial plateau fracture or fractures of the posterolateral corner. The remaining bones demonstrate no fracture. There are degenerative changes including osteophyte formation. A fabella is noted. There is a benign appearing geographic lucent lesion of the medial femoral condyle with a narrow zone of transition. Joints: Small joint effusion. Ligaments: Extensor mechanism intact. The ACL and PCL are unremarkable. The remaining ligaments and menisci are unremarkable but suboptimally visualized on CT. Superficial soft tissues: Mild muscular atrophy. There are lobular ovoid soft tissue densities anterior to the medial supracondylar notch of the distal femur. Diffuse superficial edema. IMPRESSION: Minimally displaced comminuted fracture of the fibular head without posterolateral corner fracture. Lobulated soft tissue collections are likely small hemorrhages or varicosities. Subcutaneous edema related to contusion. I have personally reviewed the images of this examination and agree with the resident's findings and interpretation. Interpreted by: Andrew Castillo MD Preliminary Report By: Kadeem Wilcox Electronically signed By Andrew Castillo MD Dictated Date: 06/06/2021 8:00:36 PM Prelim Date: 06/06/2021 8:09:45 PM Sign Date: 06/06/2021 9:53:15 PM Ordering Provider: MAYANK Douglass [facility] ([place]) Hayley 06-06-2021 Acetaminophen [Mass/Vol] ug/mL Low 10.0-20.0 [facility] ([place]) Comment on above: Performed By: #### C BC, ADIFF, ANEU, ABOM, CMP, GFR, APTT, TROPHS, ANSM #### [place] [address] ER Drug Screen (s) Negative Normal [facility] ([place]) Comment on above: Performed By: #### C BC, ADIFF, ANEU, ABOM, CMP, GFR, APTT, TROPHS, ANSM #### [place] [address] ER Drug Screen Interp Serum shows no evidence of drugs routinely screened Invalid Interpretation Code [facility] ([place]) Comment on above: Performed By: #### C BC, ADIFF, ANEU, ABOM, CMP, GFR, APTT, TROPHS, ANSM #### [place] [address] ER Serum Drugs Screened: See Below Normal [facility]) Comment on above: Result Comment: This drug screen is a presumptive screening only. No confirmation will be performed unless requested. Drugs included in the ER serum drug screen are: Threshold Ethanol 10.0 mg/dL Salicylate 2.0 mg/dL Acetaminophen 2.0 mcg/mL Tricyclic Antidepressants 300 ng/mL Testing has been performed FOR MEDICAL PURPOSES ONLY. Performed By: #### C BC, ADIFF, ANEU, ABOM, CMP, GFR, APTT, TROPHS, ANSM #### [place] [id number] Ethanol Level <10.0 Normal [facility] ([place]) Comment on above: Performed By: #### C BC, ADIFF, ANEU, ABOM, CMP, GFR, APTT, TROPHS, ANSM #### [place] [id number] Salicylate Lvl (ds) <3.0 Low 10.0-25.0 [facility] Comment on above: Performed By: #### C BC, ADIFF, ANEU, ABOM, CMP, GFR, APTT, TROPHS, ANSM #### [place] [id number] TCA (s) Negative Normal [facility] ([place]) Comment on above: Performed By: #### C BC, ADIFF, ANEU, ABOM, CMP, GFR, APTT, TROPHS, ANSM #### [place] [id number] LABORATORYOrdered By: Faith Cruz on 06-06-2021 Appearance (U) Hazy *ABN* (06/06/21 5:58 PM) Invalid Interpretation Code Auto Urine SS Bacteria LM.HPF (Urine sed) [#/Area] 4 /[HPF] Invalid Interpretation Code Negative/HP F AH Auto Urine SS Bilirubin Ql (U) Negative (06/06/21 5:58 PM) Invalid Interpretation Code Neg-Trace AH Auto Urine SS Color (U) Yellow (06/06/21 5:58 PM) Invalid Interpretation Code AH Auto Urine SS Glucose Test strip (U) [Mass/Vol] >=1000 mg/dL Invalid Interpretation Code Negativemg/ dL AH Auto Urine SS Hemoglobin Auto test strip (U) [Mass/Vol] Large *ABN* (06/06/21 5:58 PM) Invalid Interpretation Code Neg-Trace AH Auto Urine SS Ketones Ql (U) Negative Invalid Interpretation Code Neg-Tracemg /dL Auto Urine SS UA Coarse Granular Casts 3-5 /LPF Invalid Interpretation Code Auto Urine SS UA Leuk Est Negative (06/06/21 5:58 PM) Invalid Interpretation Code Negative AH Auto Urine SS UA Mucous Trace /HPF Invalid Interpretation Code AH Auto Urine SS UA Nitrite Negative (06/06/21 5:58 PM) Invalid Interpretation Code Negative AH Auto Urine SS UA pH 5.0 (06/06/21 5:58 PM) Invalid Interpretation Code 5.0 - 8.0 AH Auto Urine SS UA Protein Negative Invalid Interpretation Code Negativemg/ dL AH Auto Urine SS UA RBC 50-100 /HPF Invalid Interpretation Code 0-2/HPF AH Auto Urine SS UA Spec Grav 1.010 *ABN* (06/06/21 5:58 PM) Invalid Interpretation Code Auto Urine SS UA Specimen Type Catheter (06/06/21 5:58 PM) Invalid Interpretation Code Auto Urine SS UA Squam Epithelial Rare /HPF Invalid Interpretation Code 0-20/HPF Auto Urine SS UA Urobilinogen 0.2 E.U./dL Invalid Interpretation Code Auto Urine SS WBC LM.HPF (Urine sed) [#/Area] 3-5 /HPF Invalid Interpretation Code 0-5/HPF Auto Urine SS LABORATORYOrdered By: Cee kwan on 06-06-2021 ABO and Rh group Nom (Bld) Blood group A Rh(D) positive Invalid Interpretation Code BB Manual SS Blood group antibody screen Ql Negative ABSC (06/06/21 5:43 PM) Invalid Interpretation Code BB Manual SS LABORATORYOrdered By: Liliana Camargo on 06-06-2021 Acetaminophen [Mass/Vol] mcg/mL Invalid Interpretation Code 10.0 - 20.0 mcg/mL ADM SS ER Drug Screen (s) Negative (06/06/21 5:43 PM) Invalid Interpretation Code Chemistry S ER Drug Screen Interp Serum shows no evidence of drugs routinely screened Invalid Interpretation Code Chemistry S ER Serum Drugs Screened: See Below (06/06/21 5:43 PM) Invalid Interpretation Code Chemistry S ER U Drug Screen Positive *ABN* (06/06/21 5:43 PM) Invalid Interpretation Code Chemistry S ER U Drug Screen Interp In the urine, th e following drug(s) or drug class(es) were screened presumptive positive at or above the listed threshold: _1. Opiates Invalid Interpretation Code Chemistry S Ethanol [Mass/Vol] mg/dL Invalid Interpretation Code ADM SS Salicylates [Mass/Vol] mg/dL Invalid Interpretation Code 10.0 - 25.0 mg/dL AH ADM SS Tricyclic antidepressants Screen Ql Negative Invalid Interpretation Code AH ADM SS U ER Drugs Screened: See Below (06/06/21 5:43 PM) Invalid Interpretation Code Chemistry S LABORATORYOrdered By: SYSTEM SYSTEM on 06-06-2021 Albumin [Mass/Vol] 3.1 G/dL Invalid Interpretation Code 3.2 - 4.8 G/dL ADM SS Albumin/Globulin [Mass ratio] 1.0 {ratio} Invalid Interpretation Code 0.9 - 1.6 ratio ADM SS ALP [Catalytic activity/Vol] 50 U/L Invalid Interpretation Code 38 - 126 U/L ADM SS ALT [Catalytic activity/Vol] 43 U/L Invalid Interpretation Code 12 - 55 U/L ADM SS AST [Catalytic activity/Vol] 46 U/L Invalid Interpretation Code 8 - 34 U/L ADM SS Base excess Calc (BldMV) [Moles/Vol] 7.0 mEq/L Invalid Interpretation Code 4.0 - 15.0 mEq/L ADM SS Basophils (Bld) [#/Vol] 0.00 103/mcL Invalid Interpretation Code 0.00 - 0.27 10^3/mcL AH Remisol SS Basophils/100 WBC (Bld) 0.1 % Invalid Interpretation Code 0.0 - 2.5 % Remisol SS Bilirubin [Mass/Vol] 1.0 mg/dL Invalid Interpretation Code 0.2 - 1.2 mg/dL ADM SS Calcium [Mass/Vol] 8.6 mg/dL Invalid Interpretation Code 8.4 - 10.1 mg/dL ADM SS Chloride [Moles/Vol] 112 mmol/L Invalid Interpretation Code 98 - 110 mEq/L ADM SS CO2 [Moles/Vol] 23 mmol/L Invalid Interpretation Code 22 - 32 mEq/L ADM SS Creatinine [Mass/Vol] 0.98 mg/dL Invalid Interpretation Code 0.60 - 1.40 mg/dL ADM SS Eosinophils (Bld) [#/Vol] 0.00 103/mcL Invalid Interpretation Code 0.00 - 0.65 10^3/mcL AH Remisol SS Eosinophils/100 WBC (Bld) 0.0 % Invalid Interpretation Code 0.0 - 6.0 % AH Remisol SS Erythrocyte distribution width (RBC) [Ratio] 14.1 % Invalid Interpretation Code 11.5 - 15.5 % AH Remisol SS GFR/1.73 sq M.predicted among blacks MDRD (S/P/Bld) [Vol rate/Area] ml/min/1.73sqm Invalid Interpretation Code AH ADM SS GFR/1.73 sq M.predicted among non-blacks MDRD (S/P/Bld) [Vol rate/Area] ml/min/1.73sqm Invalid Interpretation Code AH ADM SS Globulin (S) [Mass/Vol] 3.1 G/dL Invalid Interpretation Code 1.5 - 3.8 G/dL AH ADM SS Glucose [Mass/Vol] 194 mg/dL Invalid Interpretation Code 82 - 115 mg/dL AH ADM SS Lymphocytes (Bld) [#/Vol] 0.60 103/mcL Invalid Interpretation Code 0.90 - 4.32 10^3/mcL AH Remisol SS Lymphocytes/100 WBC (Bld) 5.5 % Invalid Interpretation Code 20.0 - 40.0 % AH Remisol SS MCH (RBC) [Entitic mass] 32.5 pg Invalid Interpretation Code 27.0 - 33.0 pg AH Remisol SS MCHC (RBC) [Mass/Vol] 33.3 G/dL Invalid Interpretation Code 32.0 - 36.0 G/dL AH Remisol SS MCV (RBC) [Entitic vol] 97.5 fL Invalid Interpretation Code 81.0 - 100.0 fL AH Remisol SS Monocytes (Bld) [#/Vol] 1.00 103/mcL Invalid Interpretation Code 0.09 - 1.40 10^3/mcL AH Remisol SS Monocytes/100 WBC (Bld) 8.5 % Invalid Interpretation Code 2.0 - 13.0 % AH Remisol SS Neutrophils (Bld) [#/Vol] 9.60 103/mcL Invalid Interpretation Code 2.25 - 8.10 10^3/mcL AH Remisol SS Neutrophils/100 WBC (Bld) 85.9 % Invalid Interpretation Code 50.0 - 75.0 % AH Remisol SS Platelet mean volume (Bld) [Entitic vol] 9.1 fL Invalid Interpretation Code 6.4 - 10.5 fL AH Remisol SS Platelets (Bld) [#/Vol] 158 103/mcL Invalid Interpretation Code 150 - 450 10^3/mcL AH Remisol SS Potassium [Moles/Vol] 4.6 mmol/L Invalid Interpretation Code 3.5 - 5.0 mEq/L AH ADM SS Protein [Mass/Vol] 6.2 G/dL Invalid Interpretation Code 6.0 - 8.5 G/dL AH ADM SS RBC (Bld) [#/Vol] 3.94 106/mcL Invalid Interpretation Code 4.50 - 6.00 10^6/mcL AH Remisol SS Sodium [Moles/Vol] 142 mmol/L Invalid Interpretation Code 136 - 145 mEq/L AH ADM SS Troponin I.cardiac DL <= 0.01 ng/mL [Mass/Vol] 7.81 ng/L Invalid Interpretation Code 0.00 - 54.00 ng/L AH ADM SS Urea nitrogen [Mass/Vol] 17.0 mg/dL Invalid Interpretation Code 8.0 - 22.0 mg/dL AH ADM SS Urea nitrogen/Creatinine [Mass ratio] 17.3 ratio Invalid Interpretation Code 10.0 - 22.0 ratio AH ADM SS WBC (Bld) [#/Vol] 11.20 103/mcL Invalid Interpretation Code 4.50 - 10.80 10^3/mcL AH Remisol SS LABORATORYOrdered By: Tanvi Gallo on 06-06-2021 aPTT Coag (PPP) [Time] 30.3 s Invalid Interpretation Code 25.0 - 35.0 seconds AH Auto Coag SS Heparin dose (APTT) Unknown (06/06/21 5:43 PM) Invalid Interpretation Code AH Auto Coag SS MABOon 06-06-2021 ABO/Rh Interp Positive Invalid Interpretation Code [facility] ([place]) Comment on above: Performed By: #### C BC, JANISIFF, ANEU, ABOM, CMP, GFR, APTT, TROPHS, ANSM #### [address] [address] MABSon 06-06-2021 Antibody Screen Manual Negative Normal [facility] ([place]) Comment on above: Performed By: #### C BC, ADIFF, ANEU, ABOM, CMP, GFR, APTT, TROPHS, ANSM #### [address] [address] RED BLOOD CELL COMPONENTon 1 08-06-2020 BB ORDER ITEM Product status info to follow Normal [facility] Comment on above: Performed By: #### R YUMIKO #### [facility] 38 [place] [address], RED BLOOD CELL UNIT STATUSon 06-06-2021 BLOOD PRODUCT CODE [id number] Normal [facility] Comment on above: Performed By: #### R BU #### [facility] [address] [place] [address], BLOOD PRODUCT DESCRIPTION Red Blood Cells Normal [facility] Comment on above: Performed By: #### R BU #### [facility] [address] [place] [address], BLOOD PRODUCT STATUS Transfused Normal [facility] Comment on above: Performed By: #### R BU #### [facility] [address] [place] [address], BLOOD PRODUCT UNIT INFO [id number] Normal [facility] Comment on above: Performed By: #### R BU #### [facility] [address] [place] [address], BLOOD PRODUCT UNIT TYPE 9500 Normal T [facility] Comment on above: Result Comment: O Ne g Performed By: #### R BU #### [facility] [address] [place] [address], CROSSMATCH INTERPRETATION Compatible (IS) Normal [facility] Comment on above: Result Comment: perf ormed on 06/06/2021 by TB Performed By: #### R BU #### [facility] [address] [place] [address], TROPHSon 06-06-2021 Troponin I High Sensitivity 7.81 ng/L Normal 0.00-54.00 [facility] ([place]) Comment on above: Performed By: #### C BC, ADIFF, ANEU, ABOM, CMP, GFR, APTT, TROPHS, ANSM #### [address] [address] TYPE AND SCREENon 11-28-2021 ABO and Rh group Nom (Bld) Blood group A Rh(D) positive [facility] Comment on above: Result Comment: visi on performed on 06/06/2021 Performed By: #### T S #### [facility] [address] [place] [address], ABO and Rh group Nom (Bld) No Previous Results Normal [facility] Comment on above: Performed By: #### T S #### [facility] [address] [place] [address], ABSC INT Negative Normal [facility] Comment on above: Result Comment: perf ormed 06/06/2021 vision Performed By: #### T S #### [facility] [address] [place] [address], U ERDSon 06-06-2021 ER U Drug Screen Positive Abnormal [facility] ([place]) Comment on above: Performed By: #### C BC, ADIFF, ANEU, ABOM, CMP, GFR, APTT, TROPHS, ANSM #### [address] [address] ER U Drug Screen Interp In the urine, th e following drug(s) or drug class(es) were screened presumptive positive at or above the listed threshold: _ Invalid Interpretation Code [facility] ([place]) Comment on above: Performed By: #### C BC, ADIFF, ANEU, ABOM, CMP, GFR, APTT, TROPHS, ANSM #### [address] [address] U ER Drugs Screened: See Below Normal [facility] ([place]) Comment on above: Result Comment: This drug screen is a presumptive screening only. No confirmation will be performed unless requested. Drugs included in the ER urine drug screen are: Threshold Amphetamine/Methamphetamine 1000 ng/mL Barbiturates 200 ng/mL Benzodiazepine metabolites 200 ng/mL Cannabinoids (THC metabolites) 50 ng/mL Benzoylecognine (cocaine met) 300 ng/mL Opiates 300 ng/mL Phencyclidine (PCP) 25 ng/mL Testing has been performed FOR MEDICAL PURPOSES ONLY. Performed By: #### C BC, ADIFF, ANEU, ABOM, CMP, GFR, APTT, TROPHS, ANSM #### [address] [address] UAon 06-06-2021 Color (U) Yellow Normal [facility] ([place]) Comment on above: Performed By: #### U A, UAMIC #### [place] [address] Glucose (U) [Mass/Vol] mg/dL Abnormal Negative [facility] ([place]) Comment on above: Performed By: #### U A, UAMIC #### [place] [address] Ketones Ql (U) Negative Normal Neg-Trace [facility] ([place]) Comment on above: Performed By: #### U A, UAMIC #### [place] [address] UA Appear Hazy Abnormal [facility] ([place] Comment on above: Performed By: #### U A, UAMIC #### [place] [address] UA Blood Large Abnormal Neg-Trace [facility] ([place]) Comment on above: Performed By: #### U A, UAMIC #### [place] [address] UA Leuk Est Negative Normal Negative [facility] ([place]) Comment on above: Performed By: #### U A, UAMIC #### [place] [address] UA Nitrite Negative Normal Negative [facility] ([place] Comment on above: Performed By: #### U A, UAMIC #### [place] [address] UA pH 5.0 Normal 5.0 - 8.0 [facility] ([place]) Comment on above: Performed By: #### U A, UAMIC #### [place] [address] UA Protein Negative Normal Negative [facility] ([place]) Comment on above: Performed By: #### U A, UAMIC #### [place] [address] UA Spec Grav 1.010 Abnormal [facility] ([place]) Comment on above: Performed By: #### U A, UAMIC #### [address] [address] UA Specimen Type Catheter Normal [facility] ([place]) Comment on above: Performed By: #### U A, UAMIC #### [address] [address] UA Urobilinogen 0.2 E.U./dL Normal [facility] ([place]) Comment on above: Performed By: #### U A, UAMIC #### [address] [address] Urobilinogen (U) [Mass/Vol] Negative Normal Neg-Trace [facility] ([place]) Comment on above: Performed By: #### U A, UAMIC #### [address] [address] UAMICon 06-06-2021 UA Bacteria 4+ /hpf Abnormal Negative [facility] ([place]) Comment on above: Performed By: #### C BC, ADIFF, ANEU, ABOM, CMP, GFR, APTT, TROPHS, ANSM #### [address] [address] UA Coarse Granular Casts 3-5 Abnormal [facility] ([place] Comment on above: Performed By: #### C BC, ADIFF, ANEU, ABOM, CMP, GFR, APTT, TROPHS, ANSM #### [address] [address] UA Mucous Trace Normal [facility] ([place]) Comment on above: Performed By: #### C BC, ADIFF, ANEU, ABOM, CMP, GFR, APTT, TROPHS, ANSM #### [address] [address] UA RBC 50-100 Abnormal 0-2 [facility] ([place]) Comment on above: Performed By: #### C BC, ADIFF, ANEU, ABOM, CMP, GFR, APTT, TROPHS, ANSM #### [address] [address] UA Squam Epithelial Rare Normal [facility] Comment on above: Performed By: #### C BC, ADIFF, ANEU, ABOM, CMP, GFR, APTT, TROPHS, ANSM #### [address] [address] UA WBC 3-5 Normal 0-5 [facility] ([place]) Comment on above: Performed By: #### C BC, ADIFF, ANEU, ABOM, CMP, GFR, APTT, TROPHS, ANSM #### [address] [address] Vital Signs Date Time Vital Sign Value Performing Clinician Facility 07-08-2021 13:35-0500 Body temperature 96.5 [degF] Dr. Lorne Mg Work Phone: [facility] Work Phone: 07-08-2021 13:35-0500 Diastolic blood pressure 86 mm[Hg] Dr. Lorne Mg Work Phone: [facility] Work Phone: 07-08-2021 13:35-0500 Heart rate 117 /min Dr. Lorne Mg Work Phone: [facility] Work Phone: 07-08-2021 13:35-0500 Respiratory rate 16 /min Dr. Lorne Mg Work Phone: [facility] Work Phone: 07-08-2021 13:35-0500 Systolic blood pressure 143 mm[Hg] Dr. Lorne Mg Work Phone: [facility] Work Phone: 06-18-2021 09:00-0500 Body temperature 97.9 [degF] Dr. Lorne Mg Work Phone: [facility] Work Phone: 06-18-2021 06:01-0500 Heart rate 98 /min Dr. Lorne Mg Work Phone: [facility] Work Phone: 06-18-2021 06:01-0500 Respiratory rate 18 /min Dr. Lorne Mg Work Phone: [facility] Work Phone: 06-18-2021 06:01-0500 SaO2% (BldA) [Mass fraction] 98 % Dr. Lorne Mg Work Phone: [facility] Work Phone: 06-18-2021 05:24-0500 Diastolic blood pressure 71 mm[Hg] Dr. Lorne Mg Work Phone: [facility] Work Phone: 06-18-2021 05:24-0500 Systolic blood pressure 116 mm[Hg] Dr. Lorne Mg Work Phone: [facility] Work Phone: 06-16-2021 10:54-0500 Body height 182.[address] Lorne Mg Work Phone: [facility] Work Phone: 06-16-2021 10:54-0500 Body weight 111.[address] Lorne Mg Work Phone: [facility] Work Phone: 06-08-2021 20:29-0500 Body mass index (BMI) [Ratio] 33.2 kg/m2 Dr. Lorne Mg Work Phone: [facility] Work Phone: 06-08-2021 15:24-0500 Body temperature 97.88 [degF] DR BRYCE DONG MD [facility] 06-08-2021 15:24-0500 Diastolic blood pressure 65 mm[Hg] DR BRYCE DONG MD [facility] 06-08-2021 15:24-0500 Heart rate 112 /min DR BRYCE DONG MD [facility] 06-08-2021 15:24-0500 Mean blood pressure 82 mm[Hg] DR BRYCE DONG MD [facility] 06-08-2021 15:24-0500 Reason For Taking VItal Signs DR BRYCE DONG MD [facility] 06-08-2021 15:24-0500 Respiratory rate 20 /min DR BRYCE DONG MD [facility] 06-08-2021 15:24-0500 Systolic blood pressure 115 mm[Hg] DR BRYCE DONG MD [facility] 06-08-2021 12:42-0500 Body temperature 98.06 [degF] DR BRYCE DONG MD [facility] 06-08-2021 12:42-0500 Diastolic blood pressure 68 mm[Hg] DR BRYCE DONG MD [facility] 06-08-2021 12:42-0500 Heart rate 112 /min DR BRYCE DONG MD [facility] 06-08-2021 12:42-0500 Mean blood pressure 85 mm[Hg] DR BRYCE DONG MD [facility] 06-08-2021 12:42-0500 Reason For Taking VItal Signs DR BRYCE DONG MD [facility] 06-08-2021 12:42-0500 Respiratory rate 20 /min DR BRYCE DONG MD [facility] 06-08-2021 12:42-0500 Systolic blood pressure 118 mm[Hg] DR BRYCE DONG MD [facility] 06-08-2021 08:45-0500 Reason For Taking VItal Signs DR BRYCE DONG MD [facility] 06-08-2021 07:25-0500 Body temperature 98.24 [degF] DR BRYCE DONG MD [facility] 06-08-2021 07:25-0500 Diastolic blood pressure 66 mm[Hg] DR BRYCE DONG MD [facility] 06-08-2021 07:25-0500 Heart rate 112 /min DR BRYCE DONG MD [facility] 06-08-2021 07:25-0500 Mean blood pressure 82 mm[Hg] DR BRYCE DONG MD [facility] 06-08-2021 07:25-0500 Respiratory rate 20 /min DR BRYCE DONG MD [facility] 06-08-2021 07:25-0500 Systolic blood pressure 114 mm[Hg] DR BRYCE DONG MD [facility] 06-06-2021 22:12-0500 Body height 185.[address] BRYCE DONG MD [facility] 06-06-2021 22:12-0500 Body weight 119.[address] BRYCE DONG MD [facility] 06-06-2021 22:12-0500 Body weight 34.79 kg/m2 DR BRYCE DONG MD [facility] 06-06-2021 16:57-0500 Body weight 119.[address] BRYCE DONG MD [facility] 06-06-2021 16:57-0500 Heart rate 123 /min DR BRYCE DONG MD [facility] Encounters Encounter Date Encounter Type Care Provider Facility Start: 10-01-2024 End: 10-01-[address] Lorne Mg MD Work Phone: [facility] Work Phone: Start: 10-01-2024 End: 10-01-[address] Lorne Mg MD -Laboratory, Phy Office 3rd Flr Start: 10-01-2024 End: 10-01-2024 ambulatory [facility] Facility:[facility] Start: 04-03-2024 End: 04-03-2024 ambulatory [facility] Facility:[facility] Start: 09-28-2023 End: 09-28-2023 ambulatory [facility] Work Phone: Start: 09-28-2023 End: 09-28-2023 Patient encounter procedure [facility]-Laboratory, Phy Office 3rd Flr Start: 03-30-2023 End: 03-30-2023 ambulatory [facility] Work Phone: Start: 03-30-2023 End: 03-30-2023 Patient encounter procedure [facility]-Laboratory, Phy Office 3rd Flr Start: 03-10-2023 End: 03-10-2023 ambulatory [facility] Work Phone: Start: 03-10-2023 End: 03-10-2023 Patient encounter procedure [facility]-Pulmonary Services/Neurology Work Phone: Start: 10-06-2022 End: 10-06-2022 ambulatory [facility] Work Phone: Start: 10-06-2022 End: 10-06-2022 Patient encounter procedure [facility] Office 3rd Flr Start: 03-28-2022 End: 03-28-2022 ambulatory [facility] Work Phone: Start: 03-28-2022 End: 03-28-2022 Patient encounter procedure [facility] Office 3rd Flr Start: 12-20-2021 End: 12-20-2021 Patient encounter procedure [facility] 3rd Flr Start: 09-20-2021 End: 09-20-[address] Lorne Mg Work Phone: [facility] Office 3rd Flr Start: 07-08-2021 Non-patient / Non-visit Dr. Huber Mg Work Phone: [facility] Start: 07-08-2021 End: 07-09-[address] [facility] Start: 07-01-2021 Non-patient / Non-visit Dr. Hbuer Mg Work Phone: [facility] Start: 06-28-2021 End: 06-28-[address] Lorne Mg Work Phone: [facility] Start: 06-24-2021 Non-patient / Non-visit Dr. Huber Mg Work Phone: [facility] Start: 06-21-[address] Lorne Mg Work Phone: [facility] Office 3rd Flr Start: 06-08-2021 End: 06-18-2021 Evaluation and management of inpatient Dr. [facility]orne Mg [facility] Start: 06-07-2021 ambulatory UNKNOWN PROVIDER Facili ty:[facility] Start: 06-06-2021 End: 06-06-2021 ambulatory UNKNOWN PROVIDER Facility:[facility] Start: 06-06-2021 End: 06-08-2021 Evaluation and management of inpatient DR BRYCE DONG MD [facility] Procedures Date Procedure Procedure Detail Performing Clinician Start: 03-10-2023 Coronavirus COVID-19 PCR Start: 03-10-2023 Influenza Types A,B Direct FA (IVELISSE) Start: 03-10-2023 Respiratory syncytia l virus antigen assay Start: 06-28-2021 Plain X-ray of tibia and fibula Dr. Lorne Mg Work Phone: Start: 06-28-2021 Radiography of sacrococcygeal spine Dr. Lorne Mg Work Phone: Plan of Treatment Date Care Activity Detail Author Patient referral [facility] Work Phone: Immunizations Immunization Date Immunization Notes Care Provider Fa cility 06-06-2021 tetanus toxoid, redu zehra diphtheria toxoid, and acellular pertussis vaccine, adsorbed Dr. Lorne Mg Work Phone: [facility] 05-17-2021 Covid (Moderna) Dr. Lorne Mg Work Phone: [facility] 09-03-2020 Covid (Moderna) Dr. Lorne Mg Work Phone: [facility] 08-06-2020 Covid (Moderna) Dr. Lorne Mg Work Phone: [facility] Payers Date Payer Category Payer Self-pay [id number] 2020 Medicare [id number] 2016 Unknown [id number] 1940 Unknown [id number] 1940 Unknown [id number] [id number] Unknown [id number] Unknown [id number] Social History Date Type Detail Facility [facility] Start: 1940 Sex Assigned At Male A [facility] Start: 06-28-2021 Tobacco smoking stat [facility] Unknown if ever smoked [facility] Start: 06-28-2021 Tobacco smoking stat [facility] Ex-smoker (finding) [facility] Start: 10-07-2024 Sex Male (finding) [facility] Functional Status Date Assessment Result Facility 06-18-2021 Functional status Activity Ability Indepe ndent [facility] Work Phone: 06-16-2021 Functional status Up ad kellie [facility] Work Phone: Mental Status Date Assessment Result Facility 06-18-2021 Cognitive function Voice/Name [facility] Work Phone: Hospital Discharge instructions 06-08-2021 Note Date & Type Note Facility 06-08-2021 Hospital Discharg e instructions Patient Education 06/08/2021 17:14:17 Rib Fracture Rib Fracture A rib fracture is a break or crack in one of the bones of the ribs. The ribs are long, curved bones that wrap around your chest and attach to your spine and your breastbone. The ribs protect your heart, lungs, and other organs in the chest. A broken or cracked rib is often painful but is not usually serious. Most rib fractures heal on their own over time. However, rib fractures can be more serious if multiple ribs are broken or if broken ribs move out of place and push against other structures or organs. What are the causes? This condition is caused by: Repetitive movements with high force, such as pitching a baseball or having severe coughing spells. A direct blow to the chest, such as a sports injury, a car accident, or a fall. Cancer that has spread to the bones, which can weaken bones and cause them to break. What are the signs or symptoms? Symptoms of this condition include: Pain when you breathe in or cough. Pain when someone presses on the injured area. Feeling short of breath. How is this diagnosed? This condition is diagnosed with a physical exam and medical history. Imaging tests may also be done, such as: Chest X-ray. CT scan. MRI. Bone scan. Chest ultrasound. How is this treated? Treatment for this condition depends on the severity of the fracture. Most rib fractures usually heal on their own in 1 3 months. Sometimes healing takes longer if there is a cough that does not stop or if there are other activities that make the injury worse (aggravating factors). While you heal, you will be given medicines to control the pain. You will also be taught deep breathing exercises. Severe injuries may require hospitalization or surgery. Follow these instructions at home: Managing pain, stiffness, and swelling If directed, apply ice to the injured area. ?Put ice in a plastic bag. ?Place a towel between your skin and the bag. ?Leave the ice on for 20 minutes, 2 3 times a day. Take gzag-cgz-alukukt and prescription medicines only as told by your health care provider. Activity Avoid a lot of activity and any activities or movements that cause pain. Be careful during activities and avoid bumping the injured rib. Slowly increase your activity as told by your health care provider. General instructions Do deep breathing exercises as told by your health care provider. This helps prevent pneumonia, which is a common complication of a broken rib. Your health care provider may instruct you to: ?Take deep breaths several times a day. ?Try to cough several times a day, holding a pillow against the injured area. ?Use a device called incentive spirometer to practice deep breathing several times a day. Drink enough fluid to keep your urine pale yellow. Do not wear a rib belt or binder. These restrict breathing, which can lead to pneumonia. Keep all follow-up visits as told by your health care provider. This is important. Contact a health care provider if: You have a fever. Get help right away if: You have difficulty breathing or you are short of breath. You develop a cough that does not stop, or you cough up thick or bloody sputum. You have nausea, vomiting, or pain in your abdomen. Your pain gets worse and medicine does not help. Summary A rib fracture is a break or crack in one of the bones of the ribs. A broken or cracked rib is often painful but is not usually serious. Most rib fractures heal on their own over time. Treatment for this condition depends on the severity of the fracture. Avoid a lot of activity and any activities or movements that cause pain. This information is not intended to replace advice given to you by your health care provider. Make sure you discuss any questions you have with your health care provider. Document Released: 06/26/2006 Document Revised: 06/08/2018 Document Reviewed: 09/25/2017 [employer] Patient Education 2020 [employer]. Follow Up Care 06/06/2021 16:58:46 With:BRYCE DONG MD, Surgery Address: [facility] [address] [facility] [place] [address]- [phone] When:06/23/2021 13:45:00 With:MU SOTELO MD, Orthopedic, Orthopedic Address: [address] [place] [address] Orthopaedics/[place] [address]- [phone] When:5 to 7 days Comments:Please call the office upon discharge for an appointment in 5 to 7 days. With:Veronica [facility], , for nurse to nurse report. Address:Unknown When:1-2 days With:AMADO MG Address: ADULT GERIATRICS/[facility] [address] [place] [address]- Business (1) When:1-2 days [facility] HCoV 229E RNA MELECIO+non-probe Ql (Nph) 06-08-2021 Note Date & Type Note Facility 06-08-2021 HCoV 229E RNA MELECIO +non-probe Ql (Nph) Not Detected *NA* (06/08/21 3:07 PM) AH Auto Viro/Sero SS Evaluation + Plan note Note Date & Type Note Facility Evaluation + Plan note Future Appointments Appointment Date:06/23/2021 01:45:00 PM Scheduled Provider:BRYCE DONG MD Location:[facility] Appointment Type:[facility] Hospital Follow Up [facility] Evaluation note Note Date & Type Note Facility Evaluation note Diagnosis Onset Date Debility acute Diabetes mellitus acute Essential hypertension acute Gout acute History of pulmonary embolism acute Hyperlipidemia acute [id number] resolved Closed right fibular fracture acute Fractured coccyx acute Debility acute Diabetes mellitus acute Essential hypertension acute Gout acute History of pulmonary embolism acute Hyperlipidemia acute Lymphedema of right lower extremity acute Venous stasis ulcer with conrad icose veins of right lower extremity acute 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 [id number] resolved [facility] Work Phone: Evaluation note Note Date & Type Note Facility Evaluation note No assessment information availa ble [facility] Work Phone: Hospital course Narrative Note Date & Type Note Facility Hospital course Narrative No data available for this section [facility] Hospital Discharge instructions Note Date & Type Note Facility Hospital Discharge instructions [facility] Work Phone: Reason for referral (narrative) Note Date & Type Note Facility Reason for referral (narrative) No reason for referral information available [facility] Work Phone: Summary Purpose Family History No Family History Records FoundNo Family History Records FoundNo Family History Records Found Advance Directives No Advanced Directives Records Found Advance Directive Response Recorded Date/ Time Living Will Yes June 09 1:53pm Power of Facilities Flight Check Pilot Yes June 09, 2021 1:53pm Chief Complaint and Reason for Visit Chief Complaint R FIBULA FX, SACRAL FX wound RIGHT FIBULA xray wound wound wound Reason for Visit Debility Diabetes mellitus Essential hypertension Gout History of pulmonary embolism Hyperlipidemia [id number] Closed right fibular fracture Fractured coccyx Debility Diabetes mellitus Essential hypertension Gout History of pulmonary embolism Hyperlipidemia Lymphedema of right lower extremity Venous stasis ulcer with varicose veins of right lower extremity Homozygous MTHFR mutation C677T [id number] Chief Complaint CHILLS W/O FEVER Additional Source Comments (unrecognized sect ion and content) No Status Records FoundNo Status Records FoundNo Status Records Found INFORMATION SOURCE (unrecogn ized section and content) DATE CREATED AUTHOR 06/13/2021 [employer] DATE CREATED AUTHOR AUTHOR'S ORGANIZ ATION 06/19/2021 [facility] ([place]) DATE CREATED AUTHOR AUTHOR'S ORGANIZ ATION 10/07/2024 [facility] Goals (unrecognized section and content) Goals may be documented in a n alternate section Care Teams (unrecognized sec tion and content) Team Status: Active Member Role Status Dates Dr. Lorne Mg MD Family Provider Active Dr. Lorne Mg MD Primary Care Provider Active Team Status: Inactive Member Role Status Dates Dr. Lorne Mg MD Primary Care Provider, Attending Provider Active Team Status: Inactive Member Role Status Dates Dr. Lorne Mg MD Primary Care Provi wei, Attending Provider, Referring Provider Active Team Status: Inactive Member Role Status Dates Dr. Lorne Mg MD Primary Care Provider Active Start: October 01, 2024 End: October 01, 2024 Dr. Lorne Mg MD Attending Provider Active Start: October 01, 2024 End: October 01, 2024 Dr. Lorne Mg MD Referring Provider Active Start: October 01, 2024 End: October 01, 2024 FOR RECORDS PERTAINING TO PATIENTS WHO ARE OR HAVE BEEN ENROLLED IN A CHEMICAL DEPENDENCY/SUBSTANCEABUSE PROGRAM, SOME INFORMATION MAY BE OMITTED. This clinical summary was aggregated from multiple sources. Caution should be exercised in using it in the provision of clinical care. This summary normalizes information from multiple sources, and as a consequence, information in this document may materially change the coding, format and clinical context of patient data. In addition, data may be omitted in some cases. CLINICAL DECISIONS SHOULD BE BASED ON THE PRIMARY CLINICAL RECORDS. [facility]. provides no warranty or guarantee of the accuracy or completeness of information in this document.
[2025-04-04 12:21] LABS: Hematocrit 47.9 % (40-54); Hemoglobin 16.1 g/dL (13.0-16.5); Immature Granulocytes Count 0.020 X10^3/uL (0.0-0.0); Mean Corp Hgb Conc 33.6 g/dL (32-36); Mean Corpuscular Volume 100.6 fL (80-94); Mean Platelet Vol. 11.2 fl (6.2-12.0); NRBC Flagged by Analyzer 0 % (0-5); Platelet Count 144 K/mm3 (150-450); RBC Distribution Width CV 13.7 % (11.6-14.6); RBC Distribution Width SD 51.5 fl (35.1-43.9); Red Blood Count 4.76 M/mm3 (4.6-6.2); White Blood Count 6.5 K/mm3 (4.4-11.0)
[2025-04-04 13:01] LABS: Creatinine, Urine (random) 64.60 mg/dL (39.00-259.00); Microalbumin,Random Urine 31.8 mg/L (<20 mg/L)
[2025-04-04 13:36] LABS: Cholesterol 79 mg/dL (<=200); Low Density Lipoprotein Calc. 26 mg/dL; Triglycerides 52 mg/dL; Uric Acid 5.4 mg/dL (3.5-7.2); Very Low Density Lipoprotein 10 mg/dL (5-40); Vitamin D,25 Hydroxy 26.3 ng/mL (30-100); cholesterol:hdl ratio screen 1.87
[2025-04-04 13:39] LABS: AST(SGOT) 19 U/L (<=37); Alanine Aminotransfer ALT/SGPT 13 U/L (<=46); Albumin, Serum 4.0 g/dL (3.4-4.8); Alkaline Phosphatase 60 U/L (40-129); Anion Gap 13 (5-15); BUN 16 mg/dL (4-19); BUN/Creat Ratio 16.1 RATIO (10-20); Calcium,Total 9.6 mg/dL (7.6-11.0); Carbon Dioxide 22.3 mmol/L (21.0-32.0); Chloride 106 mmol/L (98-108); Globulin 1.5 g/dL (2.2-4.2); Glucose 144 mg/dL (70-99); Potassium 4.7 mmol/L (3.3-5.1)
[2025-04-04 19:57] LABS: Xtra Tube Kwok EXTRA TUBE
== END | disposition home or self-care (01) ==
LOC: POLAB3 11:56
PROVIDERS: PCP Family Medicine Geriatric Medicine; Visit Provider Family Medicine Geriatric Medicine
DX: E78.5 Hyperlipidemia, unspecified (principal); E11.65 Type 2 diabetes mellitus with hyperglycemia; I10 Essential (primary) hypertension; E03.9 Hypothyroidism, unspecified; E55.9 Vitamin D deficiency, unspecified; Z13.89 Encounter for screening for other disorder
CPT/HCPCS: 36415; 80053; 80061; 82043; 82306; 82570; 83036; 84443; 84550; 85025